=== PATIENT | female | born 1960 | race American Indian/Alaskan Native ===

== ENCOUNTER 2016-09-25 08:17 | Inpatient (IN) | payer MEDICARE ==
[~2016-09-25 08:17] MED LIST: KEPPRA 1,000 MG/NS 0.75% 100ML 1,000 MG/100 ML BAG IV ONE
[2016-09-25] MEDS ORDERED: QUELICIN IV ONE (08:19)
[2016-09-25] MEDS ORDERED: AMIDATE IV ONE (08:19)
[2016-09-25] MEDS ORDERED: KEPPRA 1,000 MG/NS 0.75% 100ML 1,000 MG/100 ML BAG IV ONE (08:20)
[2016-09-25] MEDS ORDERED: VASELINE LIP THERAPY TP PRN (08:24)
[2016-09-25] MEDS ORDERED: ARTIFICIAL TEARS OPHTH OINT OU PRN (08:24)
--- NOTE | 2016-09-25 08:46 | Emergency Department Report ---
ED Altered Mental Status HPI - General Chief Complaint: Altered Mental Status Stated Complaint: UNRESPONSIVE Time Seen by Provider: 09/25/16 08:23 Source: EMS Mode of arrival: Stretcher Limitations: Altered Mental Status - History of Present Illness Initial Comments: 56-year-old female presents to the emergency department via EMS after being found unresponsive. Per report, the family found the patient lying on the floor this morning approximate 7:15 AM. Patient was unresponsive and appeared to be having seizure activity. EMS reports upon their arrival, the patient was noted to have tonic-clonic activity to her right upper and right lower extremities. EMS reports that initial room air saturation was 75%. Patient had a systolic blood pressure greater than 200 mmHg. Patient was placed on a nonrebreather with increase in oxygen saturation to 95%. Patient was also administered 2 mg of Ativan by EMS. EMS reports that after the Ativan, the shaking did decrease. Further history is unable to be obtained from the patient due to her clinical condition. MD Complaint: altered mental status -: unknown Severity: severe Consistency of Symptoms: constant Context: unknown Treatments Prior to Arrival: IV fluid, oxygen, other pre-hosp med (Ativan) - Related Data Home Medications Medication Instructions Recorded Confirmed Last Taken AtorvaSTATin [Lipitor] 20 mg PO QHS 09/25/16 09/25/16 Unknown Benztropine [Cogentin] 1 mg PO BID 09/25/16 09/25/16 Unknown Gabapentin [Gralise] 600 mg PO Q8H 09/25/16 09/25/16 Unknown Pantoprazole Sodium 40 mg PO DAILY 09/25/16 09/25/16 Unknown metFORMIN [Glucophage] 500 mg PO BID 09/25/16 09/25/16 Unknown Allergies Allergy/AdvReac Type Severity Reaction Status Date / Time latex Allergy Rash Verified 06/17/14 10:38 Penicillins Allergy Rash Verified 06/17/14 10:38 Sulfa (Sulfonamide Allergy Rash Verified 06/17/14 10:38 Antibiotics) ED Review of Systems ROS: Stated complaint: UNRESPONSIVE Other details as noted in HPI Comment: Unobtainable due to pts medical conditions ED Past Medical Hx - Past Medical History Previous Medical History?: Yes Hx Hypertension: Yes Hx CVA: Yes (x3) Hx Heart Attack/AMI: No Hx Congestive Heart Failure: No Hx Diabetes: Yes Hx Deep Vein Thrombosis: No Hx Pulmonary Embolism: No Hx GERD: Yes Hx Liver Disease: No Hx Sickle Cell Disease: No Hx Arthritis: Yes Hx Seizures: No Hx Kidney Stones: No Hx Asthma: No Hx COPD: No Hx Dementia: No Hx HIV: No - Surgical History Hx Coronary Stent: No Hx Open Heart Surgery: No Hx Pacemaker: No Hx Internal Defibrillator: No Hx Cholecystectomy: Yes Hx Appendectomy: No Hx Breast Surgery: No Additional Surgical History: spinal surgery, carpal tunnel surgery, ankle fx repair, hysterectomy - Social History Smoking Status: Unknown if ever smoked - Medications Home Medications: Home Medications Medication Instructions Recorded Confirmed Last Taken Type AtorvaSTATin [Lipitor] 20 mg PO QHS 09/25/16 09/25/16 Unknown History Benztropine [Cogentin] 1 mg PO BID 09/25/16 09/25/16 Unknown History Gabapentin [Gralise] 600 mg PO Q8H 09/25/16 09/25/16 Unknown History Pantoprazole Sodium 40 mg PO DAILY 09/25/16 09/25/16 Unknown History metFORMIN [Glucophage] 500 mg PO BID 09/25/16 09/25/16 Unknown History ED Physical Exam - General Limitations: Altered Mental Status General appearance: obtunded - Head Head exam: Present: atraumatic, normocephalic - Eye Eye exam: Present: PERRL, nystagmus (horizontal, right beating), other (gaze deviated to right) - ENT ENT exam: Present: normal exam, normal orophraynx, mucous membranes moist - Neck Neck exam: Present: normal inspection, full ROM. Absent: tenderness - Respiratory Respiratory exam: Present: normal lung sounds bilaterally. Absent: respiratory distress - Cardiovascular Cardiovascular Exam: Present: normal rhythm, tachycardia, normal heart sounds - GI/Abdominal GI/Abdominal exam: Present: soft, normal bowel sounds. Absent: distended, tenderness - Extremities Exam Extremities exam: Present: normal inspection, full ROM. Absent: tenderness - Back Exam Back exam: Present: normal inspection, full ROM. Absent: tenderness - Neurological Exam Neurological exam: Present: other (active right sided seizure noted. GCS 3 (E1 V1 M1)) - Skin Skin exam: Present: warm, dry, intact ED Course Vital Signs 09/25/16 09/25/16 09/25/16 08:20 08:38 08:49 Temperature 98.2 F Pulse Rate 133 H 96 H 104 H Respiratory 10 L 12 12 Rate Blood Pressure 195/118 Blood Pressure 95/68 155/88 [Left] O2 Sat by Pulse 100 94 93 Oximetry - Reevaluation(s) Reevaluation #1: 09/25/16 08:49 Upon arrival, seizure activity was again noted. Patient was initially 5 mg of IV Versed and subsequently intubated using etomidate and succinylcholine. See associated procedure note. Obtaining labs and head CT. Administering IV Keppra. - Intubation Time Out Performed: Yes Sedative: Etomidate Mg Given: 20 Paralytic: Succinylcholine Mg Given: 100 Laryngoscope: Noy Size: 3 ET Tube Size: 7.5 Tube Secured Depth (cm): 24 Tube Secured Location: lips Tube Placement Confirmation: visualized tube passing t, equal breath sounds bilat, no breath sounds over epi, confirmation by capnometr Patient Tolerated Procedure: well Intubation Complications: none - Lab Data Result diagrams: 09/25/16 08:35 09/25/16 08:35 Lab Results 09/25/16 09/25/16 09/25/16 Range/Units 08:35 08:35 08:35 WBC 6.1 (4.5-11.0) K/mm3 RBC 3.91 (3.65-5.03) M/mm3 Hgb 10.5 (10.1-14.3) gm/dl Hct 33.3 (30.3-42.9) % MCV 85 (79-97) fl MCH 27 L (28-32) pg MCHC 32 (30-34) % RDW 20.2 H (13.2-15.2) % Plt Count 340 (140-440) K/mm3 Lymph % (Auto) 19.9 (13.4-35.0) % [place] % (Auto) 7.1 (0.0-7.3) % Eos % (Auto) 0.3 (0.0-4.3) % Baso % (Auto) 1.3 (0.0-1.8) % Lymph # 1.2 (1.2-5.4) K/mm3 [place] # 0.4 (0.0-0.8) K/mm3 Eos # 0.0 (0.0-0.4) K/mm3 Baso # 0.1 (0.0-0.1) K/mm3 Seg Neutrophils % 71.4 H (40.0-70.0) % Seg Neutrophils # 4.4 (1.8-7.7) K/mm3 PT 13.2 (12.2-14.9) Sec. INR 1.01 (0.87-1.13) APTT 25.8 (24.2-36.6) Sec. POC ABG pH (7.35-7.45) POC ABG pCO2 (35-45) POC ABG pO2 (80-105) POC ABG HCO3 POC ABG Total CO2 POC ABG O2 Sat POC ABG Base Excess FiO2 % Sodium 140 (137-145) mmol/L Potassium 4.4 (3.6-5.0) mmol/L Chloride 99.9 (98-107) mmol/L Carbon Dioxide 24 (22-30) mmol/L Anion Gap 21 mmol/L BUN 14 (7-17) mg/dL Creatinine 1.6 H (0.7-1.2) mg/dL Estimated GFR 40 ml/min BUN/Creatinine Ratio 8.75 % Glucose 352 H (65-100) mg/dL Calcium 9.1 (8.4-10.2) mg/dL Troponin T 0.024 (0.00-0.029) ng/mL 09/25/16 Range/Units 09:12 WBC (4.5-11.0) K/mm3 RBC (3.65-5.03) M/mm3 Hgb (10.1-14.3) gm/dl Hct (30.3-42.9) % MCV (79-97) fl MCH (28-32) pg MCHC (30-34) % RDW (13.2-15.2) % Plt Count (140-440) K/mm3 Lymph % (Auto) (13.4-35.0) % [place] % (Auto) (0.0-7.3) % Eos % (Auto) (0.0-4.3) % Baso % (Auto) (0.0-1.8) % Lymph # (1.2-5.4) K/mm3 [place] # (0.0-0.8) K/mm3 Eos # (0.0-0.4) K/mm3 Baso # (0.0-0.1) K/mm3 Seg Neutrophils % (40.0-70.0) % Seg Neutrophils # (1.8-7.7) K/mm3 PT (12.2-14.9) Sec. INR (0.87-1.13) APTT (24.2-36.6) Sec. POC ABG pH 7.596 H (7.35-7.45) POC ABG pCO2 26.5 L (35-45) POC ABG pO2 65 L (80-105) POC ABG HCO3 25.8 POC ABG Total CO2 27 POC ABG O2 Sat 96 POC ABG Base Excess 4 FiO2 100 % Sodium (137-145) mmol/L Potassium (3.6-5.0) mmol/L Chloride (98-107) mmol/L Carbon Dioxide (22-30) mmol/L Anion Gap mmol/L BUN (7-17) mg/dL Creatinine (0.7-1.2) mg/dL Estimated GFR ml/min BUN/Creatinine Ratio % Glucose (65-100) mg/dL Calcium (8.4-10.2) mg/dL Troponin T (0.00-0.029) ng/mL - EKG Data -: EKG Interpreted by Al EKG shows normal: sinus rhythm, axis, intervals, QRS complexes Rate: tachycardia When compared to previous EKG there are: previous EKG unavailable Interpretation: nonspecific ST-T wave sol - Radiology Data Radiology results: report reviewed, image reviewed CT of the head was discussed with the radiologist. There is no acute hemorrhage noted. Ischemic changes consistent with previous left MCA stroke were noted. No other acute findings are noted. - Medical Decision Making Lab and imaging results reviewed and discussed with the patient's family. Patient has had no further seizure activity in the emergency department. Her blood pressure has improved. Patient is to be admitted by the hospitalist, Dr. Orozco. - Differential Diagnosis ICH, status epilepticus, stroke Critical Care Time: Yes Critical care time in (mins) excluding proc time.: 30 Critical care attestation.: If time is entered above; I have spent that time in minutes in the direct care of this critically ill patient, excluding procedure time. Critical Care Time: The high probability of a clinically significant, sudden or life threatening deterioration of the neurologic system(s) required my full and direct attention , intervention and personal management. The aggregate critical care time was 30 minutes. This time is in addition to time spent performing reported procedures but includes the following: [x] Data Review and interpretation [x] Patient assessment and monitoring of vital signs [x] Documentation [x] Medication orders and management ED Disposition Clinical Impression: Status epilepticus Disposition: OP ADMITTED IP TO THIS HOSP Is pt being admited?: Yes Condition: Stable Time of Disposition: 09:24
--- NOTE | 2016-09-25 08:57 | Cat Scan Report ---
CT HEAD WITHOUT CONTRAST INDICATION: Neuro deficits <6 hours or symptoms present upon awakening. Possible stroke. 98N. COMPARISON: 03/25/2016. FINDINGS: Noncontrast head CT demonstrates expected interval evolution with greater left frontotemporoparietal hypodense encephalomalacia measuring 3.8 x 3 cm as on axial image 30, series 2. Slightly greater mild ex-vacuo dilatation of the left lateral ventricle with few other chronic left coronal radiata ischemic changes also again noted, including approximately 8 mm left subinsular cortex lacunar infarct on axial image 20. Slight patient head tilt. Though difficult to reliably detect in this setting, no definite acute infarct clearly identified. No hemorrhage, mass effect, midline shift or abnormal extra axial fluid collections. Normal posterior fossa with preserved basilar cisterns. Bilateral cataract surgery new in the interval. Clear imaged paranasal sinuses and mastoid air cells. Intact calvarium and scalp. Atherosclerotic internal carotid artery calcifications. Few radiopaque dental filling material and missing teeth. CONCLUSION: 1. No definite acute intracranial CT abnormality with expected interval evolution of left MCA infarct since March 2016, as described above. 2. Few other incidental findings, including bilateral cataract surgery. If focal neurologic deficits or strong clinical suspicion for an acute infarction exists, additional assessment as with MRI may be considered, as appropriate. I phoned above results to Dr. Solis in the ER, 8:40 AM, 09/25/2016. Thank you for the opportunity to participate in this patient's care.
[2016-09-25] MEDS ORDERED: VERSED IV NR (09:00)
[2016-09-25] MEDS ORDERED: NACL 0.9% 500 ML IV SCH (09:00)
[2016-09-25] MEDS ORDERED: fentaNYL DRIP Premix 2,000 MCG/100 ML BAG IV SCH (09:00)
[2016-09-25 09:04] LABS: Basophils % (Auto) 1.3 % (0.0-1.8); Eosinophils % (Auto) 0.3 % (0.0-4.3); Hematocrit 33.3 % (30.3-42.9); Hemoglobin 10.5 gm/dl (10.1-14.3); Mean Corpuscular HGB Conc 32 % (30-34); Mean Corpuscular Hemoglobin 27 pg (28-32); Mean Corpuscular Volume 85 fl (79-97); Platelet Count 340 K/mm3 (140-440); Red Blood Count 3.91 M/mm3 (3.65-5.03); Red Cell Distribution Width 20.2 % (13.2-15.2); White Blood Count 6.1 K/mm3 (4.5-11.0)
[2016-09-25 09:11] LABS: BUN/Creatinine Ratio 8.75; Calcium 9.1 mg/dL (8.4-10.2); Chloride 99.9 mmol/L (98-107); Potassium 4.4 mmol/L (3.6-5.0)
[2016-09-25 09:13] LABS: INR 1.01 (0.87-1.13)
[2016-09-25 09:14] LABS: Partial Thromboplastin Time 25.8 Sec. (24.2-36.6)
--- NOTE | 2016-09-25 09:15 | Admit Criteria Form ---
Admission Criteria Documentation: RESPIRATORY FAILURE GRG Clinical Indications for Admission to Inpatient Care (Place 'X' for any and all applicable criteria): Hospital admission is needed for appropriate care of the patient because of acute respiratory failure or insufficiency as indicated by ANY ONE of the following(1)(2)(3)(4)(5)(6)(7)(8): [X ]I. Mechanical ventilation needed (acute invasive or noninvasive) [ ]II. Severe ventilation deficit as indicated by ANY ONE of the following (9) [ ]a) Respiratory acidosis (pH less than 7.32 and partial pressure of carbon dioxide greater than 40 mm Hg (5.3 kPa)) [ ]b) Partial pressure of carbon dioxide greater than 44 mm Hg (5.9 kPa ) (new) [ ]c) Airflow measurements less than 25% of predicted (eg, peak expiratory flow rate less than 100 L/minute) [ ]d) Forced vital capacity less than 15 mL/kg of ideal body weight, or 50% decrease in vital capacity from baseline [ ]III. Noncardiac pulmonary edema not resolving with rapid emergency treatment (8) [ ]IV. Severe respiratory distress as indicated by ANY ONE of the following: [ ]a) Severe tachypnea (respiratory rate greater than 30, greater than 45 for 6-month-old, greater than 60 for ) [ ]b) Severe hypoxemia (partial pressure of oxygen less than 50 mm Hg ( 6.7 kPa) on greater than 50% oxygen or partial pressure of oxygen to FIO2 ratio less than 200) [ ]c) Mental status deterioration from respiratory disease [ ]V. Airway obstruction or inadequate protection [A](10)(11) The original [employer] content created by [employer] has been revised. The portions of the content which have been revised are identified through the use of italic text or in bold, and [employer] has neither reviewed nor approved the modified material. All other unmodified content is copyright [employer] Please see references footnoted in the original [employer] edition 2016 Admission Criteria Met: Yes
[2016-09-25] MEDS: DIPRIVAN 10 MG/ML 1,000 MG/100 ML BOTTLE IV SCH ×2 (09:16→23:52)
[2016-09-25 09:21] LABS: ISTAT Base Excess 4; ISTAT HCO3 25.8; ISTAT PCO2 26.5 (35-45); ISTAT PH 7.596 (7.35-7.45); ISTAT PO2 65 (80-105); ISTAT SO2 96; ISTAT TCO2 27
--- NOTE | 2016-09-25 09:54 | XRay Report ---
AP CHEST: HISTORY: Endotracheal tube placement. The endotracheal tube terminates at the orifice of the right mainstem bronchus. Retraction by 3-4 cm is recommended. AP view of the chest demonstrates a normal mediastinal and cardiac contour with clear lungs and normal bony and soft tissue structures. IMPRESSION: The endotracheal tube terminates at the jake/orifice of the right mainstem bronchus. Retraction by 3-4 cm is recommended.
--- NOTE | 2016-09-25 10:31 | History and Physical Report ---
History of Present Illness Date of examination: 09/25/16 Date of admission: 09/25/16 Chief complaint: sz History of present illness: 56-year-old female with significant past medical history of multiple CVAs with residual right hemiparesis, left ICA stenosis, hypertension, diabetes mellitus type 2, hyperlipidemia, hypertension, peripheral neuropathy and history of gastric ulcers and GI bleed who presents to the emergency department via EMS after being found unresponsive. Per ER/EMS report, the family found the patient lying on the floor this morning at approximately 7:15 AM. Patient was noted to be unresponsive and appeared to be having generalized tonic-clonic seizure activity. EMS reports upon their arrival, the patient was noted to have tonic-clonic activity to her right upper and right lower extremities. Her initial room air saturation was 75%. Patient had a systolic blood pressure greater than 200 mmHg. Patient was placed on a nonrebreather with increase in oxygen saturation to 95%. Patient was also administered 2 mg of Ativan by EMS. EMS reports that after the Ativan, the seizure activity did decrease. Patient is currently intubated on mechanical ventilation and sedated. The son is at the bedside but is unable to give any other history. Past History Past Medical History: diabetes, hypertension, hyperlipidemia, other (GI bleed, right hemiparesis, history of gastric ulcers with positive H. pylori) Past Surgical History: Other (unable to obtain due to ventilator) Social history: other (unable to obtain due to ventilator) Family history: other (unable to obtain due to ventilator) Medications and Allergies Allergies Allergy/AdvReac Type Severity Reaction Status Date / Time latex Allergy Rash Verified 06/17/14 10:38 Penicillins Allergy Rash Verified 06/17/14 10:38 Sulfa (Sulfonamide Allergy Rash Verified 06/17/14 10:38 Antibiotics) Home Medications Medication Instructions Recorded Confirmed Last Taken Type AtorvaSTATin [Lipitor] 20 mg PO QHS 09/25/16 09/25/16 Unknown History Benztropine [Cogentin] 1 mg PO BID 09/25/16 09/25/16 Unknown History Gabapentin [Gralise] 600 mg PO Q8H 09/25/16 09/25/16 Unknown History Pantoprazole Sodium 40 mg PO DAILY 09/25/16 09/25/16 Unknown History metFORMIN [Glucophage] 500 mg PO BID 09/25/16 09/25/16 Unknown History Active Meds: Active Medications Hydrophilic Ointment (Vaseline Lip Therapy) 1 applic TP Q2HR PRN PRN Reason: Dry Lips Fentanyl Citrate (Fentanyl Drip Premix) 2,000 mcg in 100 mls @ 5.103 mls/hr IV TITR LINDY; 1 MCG/KG/HR PRN Reason: Protocol Propofol (Diprivan 10 Mg/Ml) 1,000 mg in 100 mls @ 3.062 mls/hr IV TITR LINDY; 5 MCG/KG/MIN PRN Reason: Protocol Last Admin: 09/25/16 09:16 Dose: 5 mcg/kg/min, 3.062 mls/hr Midazolam HCl (Versed) 5 mg IV ONCE NR Stop: 09/25/16 21:00 Multi-Ingred Cream/Lotion/Oil/Oint (Artificial Tears Ophth Oint) 1 applic OU Q4HR PRN PRN Reason: Dry Eye(s) Sodium Chloride (Nacl 0.9% 500 Ml) 1 ml IV DIRECT LINDY Review of Systems ROS unobtainable: due to endotracheal tube, due to mental status Exam - Constitutional Vitals: Temp Pulse Resp BP Pulse Ox 98.2 F 108 H 15 121/78 92 09/25/16 08:49 09/25/16 09:40 09/25/16 09:40 09/25/16 09:40 09/25/16 09:40 General appearance: Present: no acute distress, well-nourished, other (orally intubated) - EENT Eyes: Present: PERRL ENT: hearing intact, clear oral mucosa - Neck Neck: Present: supple, normal ROM - Respiratory Respiratory effort: normal Respiratory: bilateral: diminished, rhonchi - Cardiovascular Heart Sounds: Present: S1 & S2. Absent: rub, click - Extremities Extremities: pulses symmetrical, No edema Peripheral Pulses: within normal limits - Abdominal General gastrointestinal: Present: soft, non-tender, non-distended, normal bowel sounds Female genitourinary: Present: normal - Integumentary Integumentary: Present: clear, warm, dry - Musculoskeletal Musculoskeletal: gait normal, strength equal bilaterally - Psychiatric Psychiatric: appropriate mood/affect, intact judgment & insight - Neurologic Neurologic: CNII-XII intact, moves all extremities Results - Labs CBC & Chem 7: 09/25/16 08:35 09/25/16 08:35 Labs: Laboratory Last Values WBC 6.1 K/mm3 (4.5-11.0) 09/25/16 08:35 RBC 3.91 M/mm3 (3.65-5.03) 09/25/16 08:35 Hgb 10.5 gm/dl (10.1-14.3) 09/25/16 08:35 Hct 33.3 % (30.3-42.9) 09/25/16 08:35 MCV 85 fl (79-97) 09/25/16 08:35 MCH 27 pg (28-32) L 09/25/16 08:35 MCHC 32 % (30-34) 09/25/16 08:35 RDW 20.2 % (13.2-15.2) H 09/25/16 08:35 Plt Count 340 K/mm3 (140-440) 09/25/16 08:35 Lymph % (Auto) 19.9 % (13.4-35.0) 09/25/16 08:35 [place] % (Auto) 7.1 % (0.0-7.3) 09/25/16 08:35 Eos % (Auto) 0.3 % (0.0-4.3) 09/25/16 08:35 Baso % (Auto) 1.3 % (0.0-1.8) 09/25/16 08:35 Lymph # 1.2 K/mm3 (1.2-5.4) 09/25/16 08:35 [place] # 0.4 K/mm3 (0.0-0.8) 09/25/16 08:35 Eos # 0.0 K/mm3 (0.0-0.4) 09/25/16 08:35 Baso # 0.1 K/mm3 (0.0-0.1) 09/25/16 08:35 Seg Neutrophils % 71.4 % (40.0-70.0) H 09/25/16 08:35 Seg Neutrophils # 4.4 K/mm3 (1.8-7.7) 09/25/16 08:35 PT 13.2 Sec. (12.2-14.9) 09/25/16 08:35 INR 1.01 (0.87-1.13) 09/25/16 08:35 APTT 25.8 Sec. (24.2-36.6) 09/25/16 08:35 Thrombin Time 16.9 Sec. (15.1-19.6) 09/25/16 08:35 POC ABG pH 7.596 (7.35-7.45) H 09/25/16 09:12 POC ABG pCO2 26.5 (35-45) L 09/25/16 09:12 POC ABG pO2 65 (80-105) L 09/25/16 09:12 POC ABG HCO3 25.8 09/25/16 09:12 POC ABG Total CO2 27 09/25/16 09:12 POC ABG O2 Sat 96 09/25/16 09:12 POC ABG Base Excess 4 09/25/16 09:12 FiO2 100 % 09/25/16 09:12 Sodium 140 mmol/L (137-145) 09/25/16 08:35 Potassium 4.4 mmol/L (3.6-5.0) 09/25/16 08:35 Chloride 99.9 mmol/L (98-107) 09/25/16 08:35 Carbon Dioxide 24 mmol/L (22-30) 09/25/16 08:35 Anion Gap 21 mmol/L 09/25/16 08:35 BUN 14 mg/dL (7-17) 09/25/16 08:35 Creatinine 1.6 mg/dL (0.7-1.2) H 09/25/16 08:35 Estimated GFR 40 ml/min 09/25/16 08:35 BUN/Creatinine Ratio 8.75 % 09/25/16 08:35 Glucose 352 mg/dL (65-100) H 09/25/16 08:35 Calcium 9.1 mg/dL (8.4-10.2) 09/25/16 08:35 Troponin T 0.024 ng/mL (0.00-0.029) 09/25/16 08:35 Assessment and Plan Assessment and plan: Acute hypoxic respiratory failure. Patient will be maintained on mechanical ventilation. Pulmonary consultation pending. New-onset seizure. Neurology consultation. We will obtain MRI/MRA once patient is stable. Check EEG. Continue Keppra and Ativan for breakthrough seizures. History of multiple CVAs. The new seizure may be sequelae for CVA. Await MRI/ MRA. Patient will be placed on stroke pathway for now. History of gastric ulcers with positive H. pylori. Protonix daily. Acute renal failure. Etiology likely secondary to acute kidney injury from vasomotor nephropathy. Patient's last creatinine of March 2016 was 1.0. IV fluid hydration. Consider renal ultrasound. Hypertension. Resume antihypertensive medications. Diabetes mellitus type 2, uncontrolled. Accu-Cheks and sliding scale insulin. Hyperlipidemia. Continue statins.
[2016-09-25] MEDS ORDERED: PHENERGAN PR PRN (10:42)
[2016-09-25] MEDS ORDERED: SODIUM CHLORIDE FLUSH SYRINGE 10 ML IV PRN (10:42)
[2016-09-25] MEDS ORDERED: DULCOLAX PR PRN (10:42)
[2016-09-25] MEDS ORDERED: ZOFRAN IV PRN (10:42)
[2016-09-25] MEDS ORDERED: REGLAN PO PRN (10:42)
[2016-09-25] MEDS ORDERED: MILK OF MAGNESIA PO PRN (10:42)
[2016-09-25] MEDS ORDERED: NON-FORMULARY (Gabapentin [Gralise] 600 MG) PO SCH (10:45)
[2016-09-25 12:18] LABS: Bacteria,Urine 4+ /HPF (Negative); Bilirubin,Urine NEG (Negative); Blood,Urine SM (Negative); Ketones,Urine TR mg/dL (Negative); Leukocyte Esterase,Urine NEG (Negative); Mucus,Urine 3+ /HPF; Nitrite,Urine POS (Negative); Urobilinogen,Urine < 2.0 mg/dL (<2.0)
[2016-09-25 12:22] LABS: RBC,Urine < 1.0 /HPF (0.0-6.0)
[2016-09-25] MEDS: NEURONTIN PO SCH ×2 (13:52→22:30)
[2016-09-25] MEDS ORDERED: NEURONTIN PO SCH (14:00)
--- NOTE | 2016-09-25 14:51 | Consultation ---
History of Present Illness Consult date: 09/25/16 Requesting physician: DEREJE ROWE Reason for Consult: seizure Chief complaint: AMS limits direct hx. History of present illness: 56 YO F Hx L MCA stroke Jan 2016 w/ resultant dysphasia and R hemiparesis ambulates w/ cane/walker, seizure disorder on Jose 600mg TID and VPA 250mg TID but not complaint and reported left ICA stenosis, HTN, DM2, HLD, GIB p/w witnessed GTC on 09/25 7:30 AM. Sx began w/ LOC and convulsions on R hemibody then all over her body. EMS reports upon their arrival, the patient was noted to have tonic-clonic activity to her right upper and right lower extremities. Patient had a systolic blood pressure greater than 200 mmHg. Patient was placed on a nonrebreather with increase in oxygen saturation to 95%. Patient was also administered 2 mg of Ativan the seizure activity did decrease. Patient is currently intubated on mechanical ventilation and sedated. There were no clear aggravating, relieving or temporal factors. severity such to cause LOC. Past History Past Medical History: diabetes, hypertension, hyperlipidemia, seizures, stroke, other (GI bleed, right hemiparesis, history of gastric ulcers with positive H. pylori) Past Surgical History: Other (unable to obtain due to ventilator) Social history: lives with family, smoking, alcohol abuse, other (unable to obtain due to ventilator) Family history: other (unable to obtain due to ventilator) Medications and Allergies Allergies Allergy/AdvReac Type Severity Reaction Status Date / Time latex Allergy Rash Verified 06/17/14 10:38 Penicillins Allergy Rash Verified 06/17/14 10:38 Sulfa (Sulfonamide Allergy Rash Verified 06/17/14 10:38 Antibiotics) Home Medications Medication Instructions Recorded Confirmed Last Taken Type AtorvaSTATin [Lipitor] 20 mg PO QHS 09/25/16 09/25/16 Unknown History Benztropine [Cogentin] 1 mg PO BID 09/25/16 09/25/16 Unknown History Gabapentin [Gralise] 600 mg PO Q8H 09/25/16 09/25/16 Unknown History Haloperidol [Haldol] 10 mg PO BID 09/25/16 09/25/16 Unknown History Pantoprazole Sodium 40 mg PO DAILY 09/25/16 09/25/16 Unknown History metFORMIN [Glucophage] 500 mg PO BID 09/25/16 09/25/16 Unknown History Active Meds: Active Medications Acetaminophen (Tylenol) 650 mg PO Q4H PRN PRN Reason: Pain, Mild (1-3) Atorvastatin Calcium (Lipitor) 20 mg PO QHS [facility] Benztropine Mesylate (Cogentin) 1 mg PO BID [facility] Bisacodyl (Dulcolax) 10 mg VA QDAY PRN PRN Reason: Constipation Enoxaparin Sodium (Lovenox) 40 mg SUB-Q QDAY@1000 LINDY Gabapentin (Neurontin) 600 mg PO Q8HR [facility] Last Admin: 09/25/16 13:52 Dose: 600 mg Hydrophilic Ointment (Vaseline Lip Therapy) 1 applic TP Q2HR PRN PRN Reason: Dry Lips Fentanyl Citrate (Fentanyl Drip Premix) 2,000 mcg in 100 mls @ 5.103 mls/hr IV TITR LINDY; 1 MCG/KG/HR PRN Reason: Protocol Propofol (Diprivan 10 Mg/Ml) 1,000 mg in 100 mls @ 3.062 mls/hr IV TITR LINDY; 5 MCG/KG/MIN PRN Reason: Protocol Last Titration: 09/25/16 10:59 Dose: 10 mcg/kg/min, 6.123 mls/hr Valproate Sodium 250 mg/ (Sodium Chloride) 102.5 mls @ 100 mls/hr IV Q8HR [facility] Magnesium Hydroxide (Milk Of Magnesia) 30 ml PO Q4H PRN PRN Reason: Constipation Metoclopramide HCl (Reglan) 10 mg PO Q6H PRN PRN Reason: Nausea And Vomiting Midazolam HCl (Versed) 5 mg IV ONCE NR Stop: 09/25/16 21:00 Multi-Ingred Cream/Lotion/Oil/Oint (Artificial Tears Ophth Oint) 1 applic OU Q4HR PRN PRN Reason: Dry Eye(s) Ondansetron HCl (Zofran) 4 mg IV Q8H PRN PRN Reason: N/V unrelieved by Reglan Promethazine HCl (Phenergan) 25 mg VA Q6H PRN PRN Reason: Nausea And Vomiting Simvastatin (Zocor) 20 mg PO QHS [facility] Sodium Chloride (Nacl 0.9% 500 Ml) 1 ml IV DIRECT [facility] Sodium Chloride (Sodium Chloride Flush Syringe 10 Ml) 10 ml IV PRN PRN PRN Reason: LINE FLUSH Review of Systems ROS unobtainable: due to endotracheal tube, due to mental status Physical Examination - Vital Signs Vital Signs: Vital Signs Pulse Resp BP Pulse Ox 133 H 10 L 195/118 100 09/25/16 08:20 09/25/16 08:20 09/25/16 08:20 09/25/16 08:20 - Constitutional General appearance: uncomfortable, acutely ill, chronically ill, older than stated age - EENT EENT: Present: ATNC, PERRL, mucous membranes moist, hearing intact - Respiratory Respiratory: Present: chest non-tender, no respiratory distress, decreased breath sounds - Cardiovascular Cardiovascular: Present: regular rate Extremities: Present: no peripheral edema bilatateraly, no clubbing, cyanosis, no inflammation, no ischemia or petechiae - Gastrointestinal Gastrointestinal: Present: normoactive bowel sounds, soft, non-distended - Integumentary Integumentary: Present: normal - Neurologic Cranial nerve examination: PERRL, EOMI, tongue midline, intact, intact gag reflex, Intact Vestibulo-ocular r, intact corneal reflex, facial droop (on R) Speech examination: other (no speech while intubated) Sensorimotor examination: flaccid paralysis (on R), hemiparesis (on R) Motor examination - right side: 2/5: biceps, triceps, wrist flexion, wrist extension, player development manager, hip flexors, knee extensors, dorsiflexion, toe extension (EHL) , plantarflexion Motor examination - left side: 4/5: biceps, triceps, wrist flexion, wrist extension, player development manager, hip flexors, knee extensors, dorsiflexion, toe extension (EHL) , plantarflexion Detailed sensory examination: intact, pain (withdraws on L and grimaces on R) Reflex and gait examination: Babinski's sign (on R) Reflexes: 0: ankle, 3+: bicep, knee, tricep - Musculoskeletal Musculoskeletal: Present: no fluid collection, no pain, normal range of motion - Psychiatric Psychiatric: Present: mood/affect appropriate Results - Laboratory Findings CBC and BMP: 09/25/16 08:35 09/25/16 08:35 Assessment and Plan 56 YO F Hx L MCA stroke Jan 2016 w/ resultant dysphasia and R hemiparesis ambulates w/ cane/walker, seizure disorder on Jose 600mg TID and VPA 250mg TID but not complaint and reported left ICA stenosis, HTN, DM2, HLD, GIB p/w witnessed GTC on 09/25 7:30 AM. On exam pt opens eyes to stim, doesnt follow commands but withdraws to pain on L. She was on propofol gtt when examined. Sz likely provoked from AED noncompliance. CTH nonacute. Plan and Recommendation: 1. Telemetry bed w/ Q4 hour neuro checks & Sz precautions 2. Labs: Serum/Urine Tox, UA/UCx, Electrolytes especially Na, Ca, Mg, and Glucose, TSH/Vit B12/Ammonia and correct as necessary 3. Cont Infectious work up/medical management for UTI, PNA, cellulitis, bacteremia, etc. 4. Avoid hyponatremia, hypo/hyper-calcemia, hypo/hyperglycemia, acidosis, hypoxia/hypoxemia, hypercarbia/hypercapnia 5. Avoid institution of any psychoactive medications (e.g. antihistamines, anticholinergics, BZD, hypnotics, opiates) as able unless low doses of low potency antipsychotic needed for behavioral issues complicating medical care 6. AED therapy: Resume home VPA 250mg TID and Jose 600mg TID. Check VPA level 7. Avoid meds that can lower sz threshold e.g. Tramadol, fluroquinolones, carbapenems 8. If suspicion for EtOH dependence would supplement Thiamine, Folate and B12 9. Pt's family advised of [place] driving regulations: report date of presumed Seizure/unexplained loss of consciousness/awareness spell to [facility], refrain from operating a motor vehicle for 6 months after this date, and avoid unsupervised activity particularly around water or heights
[2016-09-25] MEDS ORDERED: APRESOLINE IV PRN (15:26)
[2016-09-25] MEDS: DEPACON IV SCH ×2 (17:00→22:30)
[2016-09-25] MEDS: NACL 0.9% IV SCH ×2 (17:00→22:30)
--- NOTE | 2016-09-25 17:53 | Consultation ---
History of Present Illness Consult date: 09/25/16 Requesting physician: REINIER SESAY Reason for consult: other (Acute Hypoxemic Respiratory Failure; Seizure Disorder ) History of present illness: PULMONARY/CCM CONSULT NOTE (Full dictation # [id number]) Please see dictated notes for full details Past History Past Medical History: diabetes, hypertension, hyperlipidemia, seizures, stroke, other (GI bleed, right hemiparesis, history of gastric ulcers with positive H. pylori) Past Surgical History: Other (unable to obtain due to ventilator) Social history: lives with family, smoking, alcohol abuse, other (unable to obtain due to ventilator) Family history: other (unable to obtain due to ventilator) Medications and Allergies Allergies Allergy/AdvReac Type Severity Reaction Status Date / Time latex Allergy Rash Verified 06/17/14 10:38 Penicillins Allergy Rash Verified 06/17/14 10:38 Sulfa (Sulfonamide Allergy Rash Verified 06/17/14 10:38 Antibiotics) Home Medications Medication Instructions Recorded Confirmed Last Taken Type AtorvaSTATin [Lipitor] 20 mg PO QHS 09/25/16 09/25/16 Unknown History Benztropine [Cogentin] 1 mg PO BID 09/25/16 09/25/16 Unknown History Gabapentin [Gralise] 600 mg PO Q8H 09/25/16 09/25/16 Unknown History Haloperidol [Haldol] 10 mg PO BID 09/25/16 09/25/16 Unknown History Pantoprazole Sodium 40 mg PO DAILY 09/25/16 09/25/16 Unknown History metFORMIN [Glucophage] 500 mg PO BID 09/25/16 09/25/16 Unknown History Active Meds: Active Medications Acetaminophen (Tylenol) 650 mg PO Q4H PRN PRN Reason: Pain, Mild (1-3) Atorvastatin Calcium (Lipitor) 20 mg PO QHS LINDY Benztropine Mesylate (Cogentin) 1 mg PO BID LINDY Bisacodyl (Dulcolax) 10 mg NC QDAY PRN PRN Reason: Constipation Enoxaparin Sodium (Lovenox) 40 mg SUB-Q QDAY@1000 LINDY Gabapentin (Neurontin) 600 mg PO Q8HR LINDY Last Admin: 09/25/16 13:52 Dose: 600 mg Hydralazine HCl (Apresoline) 10 mg IV Q6HR PRN PRN Reason: B/P GREATER THAN 150 Last Admin: 09/25/16 15:35 Dose: 10 mg Hydrophilic Ointment (Vaseline Lip Therapy) 1 applic TP Q2HR PRN PRN Reason: Dry Lips Fentanyl Citrate (Fentanyl Drip Premix) 2,000 mcg in 100 mls @ 5.103 mls/hr IV TITR LINDY; 1 MCG/KG/HR PRN Reason: Protocol Propofol (Diprivan 10 Mg/Ml) 1,000 mg in 100 mls @ 3.062 mls/hr IV TITR LINDY; 5 MCG/KG/MIN PRN Reason: Protocol Last Titration: 09/25/16 10:59 Dose: 10 mcg/kg/min, 6.123 mls/hr Valproate Sodium 250 mg/ (Sodium Chloride) 102.5 mls @ 100 mls/hr IV Q8HR LINDY Magnesium Hydroxide (Milk Of Magnesia) 30 ml PO Q4H PRN PRN Reason: Constipation Metoclopramide HCl (Reglan) 10 mg PO Q6H PRN PRN Reason: Nausea And Vomiting Midazolam HCl (Versed) 5 mg IV ONCE NR Stop: 09/25/16 21:00 Multi-Ingred Cream/Lotion/Oil/Oint (Artificial Tears Ophth Oint) 1 applic OU Q4HR PRN PRN Reason: Dry Eye(s) Ondansetron HCl (Zofran) 4 mg IV Q8H PRN PRN Reason: N/V unrelieved by Reglan Promethazine HCl (Phenergan) 25 mg [place] Q6H PRN PRN Reason: Nausea And Vomiting Simvastatin (Zocor) 20 mg PO QHS [facility] Sodium Chloride (Nacl 0.9% 500 Ml) 1 ml IV DIRECT LINDY Sodium Chloride (Sodium Chloride Flush Syringe 10 Ml) 10 ml IV PRN PRN PRN Reason: LINE FLUSH Physical Examination Vital signs: Vital Signs Pulse Resp BP Pulse Ox 133 H 10 L 195/118 100 09/25/16 08:20 09/25/16 08:20 09/25/16 08:20 09/25/16 08:20 Results - Laboratory Findings CBC and BMP: 09/25/16 08:35 09/25/16 08:35 ABG POC ABG pH 7.596 (7.35-7.45) H 09/25/16 09:12 POC ABG pCO2 26.5 (35-45) L 09/25/16 09:12 POC ABG pO2 65 (80-105) L 09/25/16 09:12 POC ABG HCO3 25.8 09/25/16 09:12 POC ABG Total CO2 27 09/25/16 09:12 POC ABG O2 Sat 96 09/25/16 09:12 PT/INR, D-dimer PT 13.2 Sec. (12.2-14.9) 09/25/16 08:35 INR 1.01 (0.87-1.13) 09/25/16 08:35 Abnormal lab findings: Abnormal Labs 09/25/16 14:57 Valproic Acid < 2.8 L
[2016-09-25] MEDS ORDERED: D50W (25GM) IV PRN (20:43)
[2016-09-25] MEDS ORDERED: LEVEMIR SUB-Q SCH (22:00)
--- NOTE | 2016-09-25 22:08 | Progress Note ---
Assessment and Plan # Acute hypoxemic respiratory failure. Secondary to status epilepticus. Sedated and on mechanical ventilation. Pulmonary consult obtained to assist him vent management # Statuts epilepticus Pt had first seizure in 2015 and had had multiple seizures since then. On Valprioc acid and Gabatentin. Today's was protracted seizure. Intabated and sedated on arrival to the Ed. Neurology consult obtained. On propofol and AED, prn Ativan # H/o Multiple CVA and right hemiparesis. Has Left ICA stenosis from prior evalution. Will continue with ASA, Statin further evaluation with MRA/MRI # Acute renal Failure. Likely from vasomotor nephropathy. iv hydration. Trend BUN and creatinine # Diabetes mellitus. A1c 11.1%. SSI. ivf with D51/2 NS as pt is still NPO. Accucheck Q 4 hrs with moderate dose SSI # Hypertesnion: Initialy very elevated from seizure activity. Anticipate resolution to baseline. Recommence oral antihypertensives via OJ tube. # Hyperlipdemia: On statins # DVT PPx andGI PPx with Lovenox and protonix Subjective Date of service: 09/25/16 Principal diagnosis: acute hypoxemic respiratory failure, status epilepticus Interval history: Informed by the ER physician as well as family members to see a patient well- known to me who has a history of multiple cerebrovascular accident with residual right hemiparesis, a walker and a cane was found unresponsive with clonic tonic seizure started on the right side and became generalized. EMS was called in and patient was found to be unresponsive with severely elevated blood pressure 9200s. Placed on nonrebreather and brought to the emergency department. Was intubated, sedated and connected to mechanical ventilation. Patient had a seizure in 2005 after her an episode of cerebrovascular accident. Has been on antihyperlipidemic drugs since then. Compliant with a medication prior to onset of his current symptoms that started about 7:30 AM. Objective - Constitutional Vitals: Vital Signs - 12hr 09/25/16 09/25/16 09/25/16 10:50 11:00 11:10 Temperature Pulse Rate 114 H 115 H 118 H Pulse Rate [ From Monitor] Respiratory 13 19 13 Rate Blood Pressure 147/90 152/87 152/87 O2 Sat by Pulse 99 99 Oximetry 09/25/16 09/25/16 09/25/16 11:20 11:30 11:34 Temperature Pulse Rate 115 H 118 H 121 H Pulse Rate [ From Monitor] Respiratory 11 L 14 Rate Blood Pressure 151/94 166/92 166/92 O2 Sat by Pulse 100 99 100 Oximetry 09/25/16 09/25/16 09/25/16 11:40 11:50 12:00 Temperature Pulse Rate 118 H 120 H 125 H Pulse Rate [ From Monitor] Respiratory 12 12 13 Rate Blood Pressure 166/92 151/94 166/96 O2 Sat by Pulse 100 100 99 Oximetry 09/25/16 09/25/16 09/25/16 12:10 12:20 12:30 Temperature Pulse Rate 135 H 129 H 128 H Pulse Rate [ From Monitor] Respiratory 19 12 12 Rate Blood Pressure 166/96 147/82 148/91 O2 Sat by Pulse 97 Oximetry 09/25/16 09/25/16 09/25/16 12:40 12:50 13:00 Temperature Pulse Rate 130 H 128 H 127 H Pulse Rate [ From Monitor] Respiratory 12 13 13 Rate Blood Pressure 148/91 167/91 146/93 O2 Sat by Pulse Oximetry 09/25/16 09/25/16 09/25/16 13:10 13:20 13:30 Temperature Pulse Rate 132 H 136 H 132 H Pulse Rate [ From Monitor] Respiratory 12 13 11 L Rate Blood Pressure 146/93 153/97 145/100 O2 Sat by Pulse Oximetry 09/25/16 09/25/16 09/25/16 13:40 13:50 14:00 Temperature Pulse Rate 131 H 132 H 133 H Pulse Rate [ From Monitor] Respiratory 13 13 12 Rate Blood Pressure 145/100 164/97 139/94 O2 Sat by Pulse Oximetry 09/25/16 09/25/16 09/25/16 14:10 14:20 14:30 Temperature Pulse Rate 140 H 136 H 133 H Pulse Rate [ From Monitor] Respiratory 14 12 12 Rate Blood Pressure 139/94 163/100 164/101 O2 Sat by Pulse 95 Oximetry 09/25/16 09/25/16 09/25/16 14:40 14:50 15:00 Temperature Pulse Rate 133 H 133 H 115 H Pulse Rate [ From Monitor] Respiratory 12 14 14 Rate Blood Pressure 164/101 163/100 168/103 O2 Sat by Pulse 97 Oximetry 09/25/16 09/25/16 09/25/16 15:10 15:20 15:30 Temperature Pulse Rate 137 H 137 H 135 H Pulse Rate [ From Monitor] Respiratory 12 12 12 Rate Blood Pressure 168/103 179/110 161/91 O2 Sat by Pulse 97 Oximetry 09/25/16 09/25/16 09/25/16 15:35 15:40 16:00 Temperature 98.3 F Pulse Rate 133 H 147 H Pulse Rate [ 135 H From Monitor] Respiratory 22 12 Rate Blood Pressure 179/110 161/91 O2 Sat by Pulse 96 55 L Oximetry General appearance: Present: other (intubated and sedated and on mechanical ventilation) - EENT Eyes: PERRL, EOM intact Ears: bilateral: normal - Neck Neck: supple - Respiratory Respiratory effort: normal, other (on mechanical ventilation) Respiratory: bilateral: CTA - Cardiovascular Rhythm: regular Heart Sounds: Present: S1 & S2. Absent: gallop, rub Extremities: pulses intact, No edema, normal color, Full ROM - Gastrointestinal General gastrointestinal: Present: soft, non-tender, non-distended - Integumentary Integumentary: clear, warm, dry - Musculoskeletal Musculoskeletal: 1, strength equal bilaterally - Neurologic Neurologic: moves all extremities - Psychiatric Psychiatric: appropriate mood/affect, intact judgment & insight, memory intact - Labs CBC & Chem 7: 09/25/16 08:35 09/25/16 08:35 Labs: Abnormal lab results 09/25/16 Range/Units 14:57 Valproic Acid < 2.8 L (50-100) ug/mL
[2016-09-25] MEDS: COGENTIN PO SCH (22:32)
[2016-09-25] MEDS: ZOCOR PO SCH (22:32)
[2016-09-25] MEDS: D5/0.45NS 1,000 ML IV SCH (22:36)
[2016-09-25] MEDS: NOVOLOG SUB-Q SCH (23:08)
[2016-09-26 04:40] LABS: Basophils % (Auto) 0.5 % (0.0-1.8); Eosinophils % (Auto) 1.3 % (0.0-4.3); Hematocrit 29.4 % (30.3-42.9); Hemoglobin 8.9 gm/dl (10.1-14.3); Mean Corpuscular HGB Conc 30 % (30-34); Mean Corpuscular Hemoglobin 28 pg (28-32); Platelet Count 270 K/mm3 (140-440); Red Blood Count 3.21 M/mm3 (3.65-5.03); White Blood Count 8.6 K/mm3 (4.5-11.0)
[2016-09-26 04:46] LABS: Mean Corpuscular Volume 87 fl (79-97)
[2016-09-26 04:54] LABS: Albumin/Globulin Ratio 0.8 %; BUN/Creatinine Ratio 8.94; Bilirubin,Total 0.2 mg/dL (0.1-1.2); Calcium 9.1 mg/dL (8.4-10.2); Chloride 100.8 mmol/L (98-107); Magnesium 2.1 mg/dL (1.7-2.3); Phosphorous 2.9 mg/dL (2.5-4.5); Potassium 4.1 mmol/L (3.6-5.0); Total Protein 6.6 g/dL (6.3-8.2)
[2016-09-26] MEDS: NACL 0.9% IV SCH ×3 (05:15→22:23)
[2016-09-26] MEDS: DEPACON IV SCH ×3 (05:15→22:23)
[2016-09-26] MEDS: NEURONTIN PO SCH ×3 (05:16→22:00)
[2016-09-26 06:29] LABS: ISTAT Base Excess 4; ISTAT HCO3 27.8; ISTAT PCO2 38.6 (35-45); ISTAT PH 7.465 (7.35-7.45); ISTAT PO2 168 (80-105); ISTAT SO2 100; ISTAT TCO2 29
[2016-09-26] MEDS: NOVOLOG SUB-Q SCH ×5 (06:49→22:23)
--- NOTE | 2016-09-26 07:40 | XRay Report ---
Single view chest: Compared to 09/25/16. History: Followup ORIF failure. Findings: Heart size at upper limit of normal. Trachea is midline. Stable support system. No consolidation, pneumothorax or pleural effusion. Impression: No acute cardiopulmonary findings.
--- NOTE | 2016-09-26 09:08 | Progress Note ---
Assessment and Plan # Acute hypoxemic respiratory failure. Secondary to status epilepticus. Sedated and on mechanical ventilation. Wean as tolerated. Pulmonary input appreciated. # Statuts epilepticus Pt had first seizure in 2015 and had had multiple seizures since then. On Valprioc acid and Gabatentin. Intabated and sedated on arrival to the Ed. No more seizure since then. Neurology consult obtained. On propofol and AED, prn Ativan # H/o Multiple CVA and right hemiparesis. Possible source of seiozure. Has Left ICA stenosis from prior evalution. Will continue with ASA, Statin. Further evaluation with MRA/MRI when more stable # Acute renal Failure. Likely from vasomotor nephropathy. Possibility of rhabdomyelysis cannot be excluded. iv hydration. Trend BUN and creatinine # Diabetes mellitus. A1c 11.1%. SSI. IVF with D51/2 NS as pt is still NPO. Accucheck Q 4 hrs with moderate dose SSI. Optimize control # Hypertension: Initialy very elevated from seizure activity. Controlled now. Continue oral antihypertensives via OJ tube. # Hyperlipdemia: On statins # DVT PPx andGI PPx with Lovenox and protonix Subjective Date of service: 09/26/16 Principal diagnosis: acute hypoxemic respiratory failure, status epilepticus Interval history: Informed by the ER physician as well as family members to see a patient well- known to me who has a history of multiple cerebrovascular accident with residual right hemiparesis, a walker and a cane was found unresponsive with clonic tonic seizure started on the right side and became generalized. EMS was called in and patient was found to be unresponsive with severely elevated systolic blood pressure 200s. Placed on nonrebreather and brought to the emergency department. Was intubated, sedated and connected to mechanical ventilation. Patient had a seizure in 2005 after an episode of cerebrovascular accident. Has been on antihyperlipidemic drugs since then. Compliant with medication prior to onset of his current symptoms. Remins intubated. Attempts to open eyes at voice command Objective - Constitutional Vitals: Vital Signs - 12hr 09/25/16 09/25/16 09/25/16 21:30 22:00 22:30 Temperature Pulse Rate 123 H 121 H 117 H Pulse Rate [ From Monitor] Respiratory 12 12 12 Rate Blood Pressure 134/80 139/80 135/81 O2 Sat by Pulse 100 100 100 Oximetry 09/25/16 09/25/16 09/25/16 23:00 23:30 23:52 Temperature 98.6 F Pulse Rate 115 H 107 H Pulse Rate [ From Monitor] Respiratory 14 12 12 Rate Blood Pressure 137/93 134/64 O2 Sat by Pulse 100 100 Oximetry 09/26/16 09/26/16 09/26/16 00:00 00:05 00:24 Temperature Pulse Rate 109 H 109 H 107 H Pulse Rate [ 105 H From Monitor] Respiratory 24 Rate Blood Pressure 123/65 123/65 O2 Sat by Pulse 100 100 Oximetry 09/26/16 09/26/16 09/26/16 00:30 01:00 01:30 Temperature Pulse Rate 106 H 104 H 101 H Pulse Rate [ From Monitor] Respiratory 12 12 13 Rate Blood Pressure 129/63 144/57 144/57 O2 Sat by Pulse 100 100 100 Oximetry 09/26/16 09/26/16 09/26/16 02:00 02:30 03:00 Temperature Pulse Rate 106 H 122 H 123 H Pulse Rate [ From Monitor] Respiratory 12 13 14 Rate Blood Pressure 116/59 116/59 162/91 O2 Sat by Pulse 100 100 100 Oximetry 09/26/16 09/26/16 09/26/16 03:30 04:00 04:30 Temperature 98.7 F Pulse Rate 127 H 117 H 109 H Pulse Rate [ 90 From Monitor] Respiratory 18 23 12 Rate Blood Pressure 158/89 158/89 134/70 O2 Sat by Pulse 100 97 100 Oximetry 09/26/16 09/26/16 09/26/16 05:00 05:30 05:35 Temperature Pulse Rate 107 H 120 H Pulse Rate [ From Monitor] Respiratory 12 Rate Blood Pressure 136/72 136/72 136/72 O2 Sat by Pulse 100 100 100 Oximetry 09/26/16 09/26/16 09/26/16 06:00 06:30 07:00 Temperature Pulse Rate 118 H 112 H 101 H Pulse Rate [ From Monitor] Respiratory 13 12 12 Rate Blood Pressure 136/72 149/74 115/71 O2 Sat by Pulse 100 Oximetry 09/26/16 09/26/16 09/26/16 07:30 08:00 08:27 Temperature Pulse Rate 100 H 109 H 107 H Pulse Rate [ 108 H From Monitor] Respiratory 12 17 Rate Blood Pressure 122/60 122/60 122/72 O2 Sat by Pulse 100 100 100 Oximetry 09/26/16 08:32 Temperature 98.5 F Pulse Rate Pulse Rate [ From Monitor] Respiratory Rate Blood Pressure O2 Sat by Pulse Oximetry General appearance: Present: other (intubated and sedated) - EENT Eyes: PERRL, EOM intact Ears: bilateral: normal - Neck Neck: supple, normal ROM - Respiratory Respiratory effort: normal Respiratory: bilateral: CTA - Cardiovascular Rhythm: regular Heart Sounds: Present: S1 & S2. Absent: gallop, rub Extremities: pulses intact, No edema, normal color, Full ROM - Gastrointestinal General gastrointestinal: Present: soft, non-tender, non-distended, normal bowel sounds - Genitourinary Female genitourinary: normal - Integumentary Integumentary: clear, warm, dry - Musculoskeletal Musculoskeletal: 1, strength equal bilaterally - Neurologic Neurologic: moves all extremities - Labs CBC & Chem 7: 09/26/16 03:27 09/26/16 03:27 Labs: Abnormal lab results 09/25/16 09/25/16 09/25/16 Range/Units 14:57 21:39 21:59 RBC (3.65-5.03) M/mm3 Hgb (10.1-14.3) gm/dl Hct (30.3-42.9) % RDW (13.2-15.2) % [place] % (Auto) (0.0-7.3) % [place] # (0.0-0.8) K/mm3 POC ABG pH (7.35-7.45) POC ABG pO2 (80-105) Creatinine (0.7-1.2) mg/dL Glucose (65-100) mg/dL POC Glucose (70-105) Hemoglobin A1c 11.1 H (4-6) % C-Reactive Protein 2.40 H (0.00-1.30) mg/dL Albumin (3.9-5) g/dL Triglycerides (2-149) mg/dL HDL Cholesterol (40-59) mg/dL Valproic Acid < 2.8 L (50-100) ug/mL 09/25/16 09/26/16 09/26/16 Range/Units 22:46 03:27 03:27 RBC 3.21 L (3.65-5.03) M/mm3 Hgb 8.9 L (10.1-14.3) gm/dl Hct 29.4 L (30.3-42.9) % RDW 20.0 H (13.2-15.2) % [place] % (Auto) 14.5 H (0.0-7.3) % [place] # 1.2 H (0.0-0.8) K/mm3 POC ABG pH (7.35-7.45) POC ABG pO2 (80-105) Creatinine 1.9 H (0.7-1.2) mg/dL Glucose 284 H (65-100) mg/dL POC Glucose 407 H (70-105) Hemoglobin A1c (4-6) % C-Reactive Protein (0.00-1.30) mg/dL Albumin 3.0 L (3.9-5) g/dL Triglycerides 163 H (2-149) mg/dL HDL Cholesterol 39 L (40-59) mg/dL Valproic Acid (50-100) ug/mL 09/26/16 09/26/16 Range/Units 05:34 06:43 RBC (3.65-5.03) M/mm3 Hgb (10.1-14.3) gm/dl Hct (30.3-42.9) % RDW (13.2-15.2) % [place] % (Auto) (0.0-7.3) % [place] # (0.0-0.8) K/mm3 POC ABG pH 7.465 H (7.35-7.45) POC ABG pO2 168 H (80-105) Creatinine (0.7-1.2) mg/dL Glucose (65-100) mg/dL POC Glucose 307 H (70-105) Hemoglobin A1c (4-6) % C-Reactive Protein (0.00-1.30) mg/dL Albumin (3.9-5) g/dL Triglycerides (2-149) mg/dL HDL Cholesterol (40-59) mg/dL Valproic Acid (50-100) ug/mL
[2016-09-26] MEDS: LOVENOX SUB-Q SCH (09:29)
[2016-09-26] MEDS: COGENTIN PO SCH ×2 (09:29→22:00)
[2016-09-26] MEDS ORDERED: LOVENOX SUB-Q SCH (10:00)
--- NOTE | 2016-09-26 10:30 | Progress Note ---
Assessment and Plan - Patient Problems (1) Acute hypoxemic respiratory failure Current Visit: Yes Status: Acute Plan to address problem: - continue bronchodilators and pulmonary toilet - continue aspiration precautions / VAP bundles - begin weaning via PSV protocol as tolerated - wean oxygen to keep O2 Sats > 94% (2) Seizures Current Visit: Yes Status: Acute Plan to address problem: - continue AED - neurology evaluation ongoing - CT brain negative for acute process - neurology evaluation ongoing (3) CVA (cerebral vascular accident) Current Visit: Yes Status: Acute Qualifiers: CVA mechanism: C Precerebral and cerebral artery: P Laterality of affected vessel: L Plan to address problem: - old CVA's - secondary prevention modalities instituted (4) Type II diabetes mellitus Current Visit: No Status: Acute Qualifiers: Diabetes mellitus complication status: D Diabetes mellitus complication detail: D Diabetic retinopathy severity: D Proliferative retinopathy type: P Diabetes mellitus macular edema: D Diabetes mellitus intermediate designer insulin use : D Laterality: L Chronic kidney disease stage: C Plan to address problem: - SSI (5) Discharge planning issues Current Visit: Yes Status: Acute Plan to address problem: - hopefully tolerates SBT and can be extubated ..she remains critically ill on life sustaining interventions including MVS and at risk for further deterioration including deeath ..34' CCT Subjective Date of service: 09/26/16 Principal diagnosis: acute hypoxemic respiratory failure, status epilepticus Interval history: Seen and examined at bedside; 24 hour events reviewed; nursing and respiratory care staff consulted; no adverse overnight events reported to me; lightly sedated; denies acute chest pains; tolerated bedside SBT well; no emesis or overt aspiration Objective Vital Signs - 12hr 09/25/16 09/25/16 09/25/16 23:00 23:30 23:52 Temperature 98.6 F Pulse Rate 115 H 107 H Pulse Rate [ From Monitor] Respiratory 14 12 12 Rate Blood Pressure 137/93 134/64 O2 Sat by Pulse 100 100 Oximetry 09/26/16 09/26/16 09/26/16 00:00 00:05 00:24 Temperature Pulse Rate 109 H 109 H 107 H Pulse Rate [ 105 H From Monitor] Respiratory 24 Rate Blood Pressure 123/65 123/65 O2 Sat by Pulse 100 100 Oximetry 09/26/16 09/26/16 09/26/16 00:30 01:00 01:30 Temperature Pulse Rate 106 H 104 H 101 H Pulse Rate [ From Monitor] Respiratory 12 12 13 Rate Blood Pressure 129/63 144/57 144/57 O2 Sat by Pulse 100 100 100 Oximetry 09/26/16 09/26/16 09/26/16 02:00 02:30 03:00 Temperature Pulse Rate 106 H 122 H 123 H Pulse Rate [ From Monitor] Respiratory 12 13 14 Rate Blood Pressure 116/59 116/59 162/91 O2 Sat by Pulse 100 100 100 Oximetry 09/26/16 09/26/16 09/26/16 03:30 04:00 04:30 Temperature 98.7 F Pulse Rate 127 H 117 H 109 H Pulse Rate [ 90 From Monitor] Respiratory 18 23 12 Rate Blood Pressure 158/89 158/89 134/70 O2 Sat by Pulse 100 97 100 Oximetry 09/26/16 09/26/16 09/26/16 05:00 05:30 05:35 Temperature Pulse Rate 107 H 120 H Pulse Rate [ From Monitor] Respiratory 12 Rate Blood Pressure 136/72 136/72 136/72 O2 Sat by Pulse 100 100 100 Oximetry 09/26/16 09/26/16 09/26/16 06:00 06:30 07:00 Temperature Pulse Rate 118 H 112 H 101 H Pulse Rate [ From Monitor] Respiratory 13 12 12 Rate Blood Pressure 136/72 149/74 115/71 O2 Sat by Pulse 100 Oximetry 09/26/16 09/26/16 09/26/16 07:30 08:00 08:27 Temperature Pulse Rate 100 H 109 H 107 H Pulse Rate [ 108 H From Monitor] Respiratory 12 17 Rate Blood Pressure 122/60 122/60 122/72 O2 Sat by Pulse 100 100 100 Oximetry 09/26/16 08:32 Temperature 98.5 F Pulse Rate Pulse Rate [ From Monitor] Respiratory Rate Blood Pressure O2 Sat by Pulse Oximetry Constitutional: no acute distress, other (sedate) Eyes: non-icteric ENT: oropharynx moist Neck: supple, no lymphadenopathy Effort: mildly labored Ascultation: Bilateral: diminished breath sounds, rhonchi (scant) Cardiovascular: regular rate and rhythm Gastrointestinal: normoactive bowel sounds, soft, non-tender, non-distended Integumentary: normal Extremities: no cyanosis, no edema, pulses normal, no ischemia or petechiae Neurologic: unable to assess Psychiatric: other (sedated) CBC and BMP: 09/26/16 03:27 09/26/16 03:27 ABG, PT/INR, D-dimer: ABG POC ABG pH 7.465 (7.35-7.45) H 09/26/16 05:34 POC ABG pCO2 38.6 (35-45) 09/26/16 05:34 POC ABG pO2 168 (80-105) H 09/26/16 05:34 POC ABG HCO3 27.8 09/26/16 05:34 POC ABG Total CO2 29 09/26/16 05:34 POC ABG O2 Sat 100 09/26/16 05:34 PT/INR, D-dimer PT 13.2 Sec. (12.2-14.9) 09/25/16 08:35 INR 1.01 (0.87-1.13) 09/25/16 08:35 Abnormal lab findings: Abnormal Labs 09/25/16 09/25/16 09/25/16 14:57 21:39 21:59 RBC Hgb Hct RDW [place] % (Auto) [place] # POC ABG pH POC ABG pO2 Creatinine Glucose POC Glucose Hemoglobin A1c 11.1 H C-Reactive Protein 2.40 H Albumin Triglycerides HDL Cholesterol Valproic Acid < 2.8 L 09/25/16 09/26/16 09/26/16 22:46 03:27 03:27 RBC 3.21 L Hgb 8.9 L Hct 29.4 L RDW 20.0 H [place] % (Auto) 14.5 H [place] # 1.2 H POC ABG pH POC ABG pO2 Creatinine 1.9 H Glucose 284 H POC Glucose 407 H Hemoglobin A1c C-Reactive Protein Albumin 3.0 L Triglycerides 163 H HDL Cholesterol 39 L Valproic Acid 09/26/16 09/26/16 05:34 06:43 RBC Hgb Hct RDW [place] % (Auto) [place] # POC ABG pH 7.465 H POC ABG pO2 168 H Creatinine Glucose POC Glucose 307 H Hemoglobin A1c C-Reactive Protein Albumin Triglycerides HDL Cholesterol Valproic Acid Chest x-ray: image reviewed
[2016-09-26] MEDS: D5/0.45NS 1,000 ML IV SCH (12:05)
--- NOTE | 2016-09-26 12:29 | Progress Note ---
Assessment and Plan 56 YO F Hx L MCA stroke Jan 2016 w/ resultant dysphasia and R hemiparesis ambulates w/ cane/walker, seizure disorder on Jose 600mg TID and VPA 250mg TID but not complaint (confirmed w/ VPA level < 2.5 on admit) and reported left ICA stenosis, HTN, DM2, HLD, GIB p/w witnessed GTC on 09/25 7:30 AM. On exam 09/25 while on Propofol gtt pt opens eyes to stim, doesnt follow commands but withdraws to pain on L. On 09/26 AM while still on Propofol, pt following midline commands of eye opening/closing w/o recurrent seizure. Sz likely provoked from AED noncompliance. CTH nonacute. Plan and Recommendation: 1. Telemetry bed w/ Q4 hour neuro checks & Sz precautions 2. Labs: Serum/Urine Tox, UA/UCx, Electrolytes especially Na, Ca, Mg, and Glucose, TSH/Vit B12/Ammonia and correct as necessary 3. Cont Infectious work up/medical management for UTI, PNA, cellulitis, bacteremia, etc. 4. Avoid hyponatremia, hypo/hyper-calcemia, hypo/hyperglycemia, acidosis, hypoxia/hypoxemia, hypercarbia/hypercapnia 5. Avoid institution of any psychoactive medications (e.g. antihistamines, anticholinergics, BZD, hypnotics, opiates) as able unless low doses of low potency antipsychotic needed for behavioral issues complicating medical care 6. AED therapy: Resume home VPA 250mg TID and Jose 600mg TID. Check repeat 5/6 VPA level and adjust dose to therapeutic range 7. Avoid meds that can lower sz threshold e.g. Tramadol, fluroquinolones, carbapenems 8. If suspicion for EtOH dependence would supplement Thiamine, Folate and B12 9. Pt's family advised of [place] driving regulations: report date of presumed Seizure/unexplained loss of consciousness/awareness spell to [facility], refrain from operating a motor vehicle for 6 months after this date, and avoid unsupervised activity particularly around water or heights 10. I am away until 10/06/2016 so any further questions until then will need to be directed to money manager neurologist as needed. Subjective Date of service: 09/26/16 Principal diagnosis: acute hypoxemic respiratory failure, status epilepticus Interval history: tsf to ICU, no recurrent sz. Objective - Vital Sign Vital Signs - 12hr 05/05/17 05/05/17 05/05/17 00:30 01:00 01:30 Temperature Pulse Rate 106 H 104 H 101 H Pulse Rate [ From Monitor] Respiratory 12 12 13 Rate Blood Pressure 129/63 144/57 144/57 O2 Sat by Pulse 100 100 100 Oximetry 09/26/16 09/26/16 09/26/16 02:00 02:30 03:00 Temperature Pulse Rate 106 H 122 H 123 H Pulse Rate [ From Monitor] Respiratory 12 13 14 Rate Blood Pressure 116/59 116/59 162/91 O2 Sat by Pulse 100 100 100 Oximetry 09/26/16 09/26/16 09/26/16 03:30 04:00 04:30 Temperature 98.7 F Pulse Rate 127 H 117 H 109 H Pulse Rate [ 90 From Monitor] Respiratory 18 23 12 Rate Blood Pressure 158/89 158/89 134/70 O2 Sat by Pulse 100 97 100 Oximetry 09/26/16 09/26/16 09/26/16 05:00 05:30 05:35 Temperature Pulse Rate 107 H 120 H Pulse Rate [ From Monitor] Respiratory 12 Rate Blood Pressure 136/72 136/72 136/72 O2 Sat by Pulse 100 100 100 Oximetry 09/26/16 09/26/16 09/26/16 06:00 06:30 07:00 Temperature Pulse Rate 118 H 112 H 101 H Pulse Rate [ From Monitor] Respiratory 13 12 12 Rate Blood Pressure 136/72 149/74 115/71 O2 Sat by Pulse 100 Oximetry 09/26/16 09/26/16 09/26/16 07:30 08:00 08:27 Temperature Pulse Rate 100 H 109 H 107 H Pulse Rate [ 108 H From Monitor] Respiratory 12 17 Rate Blood Pressure 122/60 122/60 122/72 O2 Sat by Pulse 100 100 100 Oximetry 09/26/16 08:32 Temperature 98.5 F Pulse Rate Pulse Rate [ From Monitor] Respiratory Rate Blood Pressure O2 Sat by Pulse Oximetry - General Apperance Constitutional: acutely ill - EENT EENT: ATNC, PERRL, mucous membranes dry, hearing intact, vision intact - Respiratory Respiratory: chest non-tender, no respiratory distress, decreased breath sounds - Cardiovascular Cardiovascular: regular rate Extremities: no peripheral edema bilat, no clubbing, cyanosis, no inflammation, no ischemia or petechiae - Gastrointestinal Gastrointestinal: normoactive bowel sounds, soft, non-distended - Integumentary Integumentary: normal - Neurologic Cranial nerve examination: PERRL, EOMI, intact, intact gag reflex, Intact Vestibulo-ocular r, intact corneal reflex, facial droop (slight onR ) Speech examination: other (intact following midline commands of eye opening/ closing) Motor examination - right side: 3/5: biceps, triceps, wrist flexion, wrist extension, medical reception specialist, hip flexors, knee extensors, dorsiflexion, toe extension (EHL) , plantarflexion Motor examination - left side: 5/5: biceps, triceps, wrist flexion, wrist extension, medical reception specialist, hip flexors, knee extensors, dorsiflexion, toe extension (EHL) , plantarflexion Detailed sensory examination: intact, pain Reflex and gait examination: Babinski's sign (on R) Reflexes: 0: ankle (on R), 3+: bicep, knee, tricep - Musculoskeletal Musculoskeletal: no fluid collection, no pain, normal range of motion - Psychiatric Psychiatric: mood/affect appropriate, cooperative - Laboratory Findings CBC and BMP: 09/26/16 03:27 09/26/16 03:27 Abnormal Lab Findings: Abnormal Labs 09/25/16 09/25/16 09/25/16 14:57 21:39 21:59 RBC Hgb Hct RDW [place] % (Auto) [place] # POC ABG pH POC ABG pO2 Creatinine Glucose POC Glucose Hemoglobin A1c 11.1 H C-Reactive Protein 2.40 H Albumin Triglycerides HDL Cholesterol Valproic Acid < 2.8 L 09/25/16 09/26/16 09/26/16 22:46 03:27 03:27 RBC 3.21 L Hgb 8.9 L Hct 29.4 L RDW 20.0 H [place] % (Auto) 14.5 H [place] # 1.2 H POC ABG pH POC ABG pO2 Creatinine 1.9 H Glucose 284 H POC Glucose 407 H Hemoglobin A1c C-Reactive Protein Albumin 3.0 L Triglycerides 163 H HDL Cholesterol 39 L Valproic Acid 09/26/16 09/26/16 09/26/16 05:34 06:43 09:51 RBC Hgb Hct RDW [place] % (Auto) [place] # POC ABG pH 7.465 H POC ABG pO2 168 H Creatinine Glucose POC Glucose 307 H 256 H Hemoglobin A1c C-Reactive Protein Albumin Triglycerides HDL Cholesterol Valproic Acid
[2016-09-26] MEDS: DUONEB 0.5 MG-3 MG/3 ML SOLN IH SCH ×2 (14:14→19:33)
[2016-09-26] MEDS ORDERED: PANCREAZE DR 10,500 UNIT FEEDTUBE PRN (14:47)
[2016-09-26] MEDS ORDERED: SODIUM BICARBONATE FEEDTUBE PRN (14:47)
[2016-09-26] MEDS ORDERED: SIMPLE SYRUP FEEDTUBE PRN ×2 (14:47)
[2016-09-26 15:45] LABS: ISTAT Base Excess 4; ISTAT HCO3 28.6; ISTAT PCO2 44.6 (35-45); ISTAT PH 7.415 (7.35-7.45); ISTAT PO2 155 (80-105); ISTAT SO2 99; ISTAT TCO2 30
--- NOTE | 2016-09-26 18:20 | Magnetic Resonance Report ---
FINAL REPORT EXAM: MR BRAIN WO CON HISTORY: stroke TECHNIQUE: MRI brain without contrast PRIORS: Comparison made to prior CT head of September 25, 2016 and MRI of March 25, 2016 FINDINGS: Again identified is encephalomalacia with gliosis involving the left posterior temporoparietal MCA distribution. No new areas of acute restriction seen on diffusion study. No acute intra or extra-axial hemorrhage is identified. No evidence for midline shift or mass effect. No acute parenchymal abnormalities are identified. No intra or extra-axial mass is appreciated. IMPRESSION: Remote left posterior MCA distribution infarct No acute abnormality identified
--- NOTE | 2016-09-26 18:30 | Magnetic Resonance Report ---
FINAL REPORT EXAM: MR MRA/MRV HEAD WO CON HISTORY: stroke TECHNIQUE: MR angiogram head [id number] PRIORS: Comparison is dated March 25, 2016 FINDINGS: There is markedly diminished flow to the left distal ICA and cavernous portion of the left ICA along with diminished flow to the left M2 and M3 distributions. There is some decreasing caliber flow within the cavernous right ICA which likely reflects atherosclerotic disease unchanged from prior exam. EMILIE circulation is unremarkable. The right MCA distribution demonstrated is within normal limits. No evidence for major vascular occlusion or aneurysm. Dominant left vertebral artery is noted. Basilar and DIRECTOR OF PAYROLL distributions are within normal limits. IMPRESSION: Markedly diminished flow to the cavernous left ICA and distal left ICA with decreased flow to the left M2 and M3 distributions unchanged from prior exam Some decreased caliber and flow within the right cavernous ICA likely reflecting underlying atherosclerosis. No acute change identified from prior exam
[2016-09-26] MEDS: LEVEMIR SUB-Q SCH (22:00)
[2016-09-26] MEDS ORDERED: HALDOL IM ONE (22:00)
[2016-09-26] MEDS: ZOCOR PO SCH (22:00)
--- NOTE | 2016-09-27 00:28 | Consultation ---
PULMONARY CRITICAL CARE CONSULTATION NOTE CONSULTING PHYSICIAN: Dr. Solis in the Emergency Room and Dr. Orozco. REASON FOR CONSULTATION: Acute hypoxemic respiratory failure, suspect status epilepticus. CHIEF COMPLAINT AND HISTORY OF PRESENT ILLNESS: The patient is a 56-year-old -[place] female with past medical history indeed significant for a diagnosis of multiple cerebrovascular accidents who was brought into the Emergency Room by the Emergency Medical Services after being found unresponsive at home. She was lying on the floor. Shortly before arrival in the ER she appeared to be having seizure-like activity. When the Emergency Medical Services got there, they found her with tonic-clonic activity to her right upper and right lower extremities, right side essentially, O2 sats were 75%, systolic blood pressure was greater than 200. She was placed on a nonrebreather and brought into the Emergency Room. In the Emergency Room, it seems like the patient continued to have seizure-like activity, as a result she was intubated and transferred to the Intensive Care Unit where I stopped by to see her. When I stopped by to see her, she was on a propofol drip, really was not going a whole about I think about 15 mcg per kilogram per minute. She was mostly nonresponsive. I do not have any history of emesis or overt aspiration, daughter denied any prior febrile illness or other obvious infection that was being treated prior to coming to the Emergency Room. That really is as much of the history of presentation as I have now. She is not a current tobacco smoker, remote history is unknown. PAST MEDICAL HISTORY: Again history of hypertension, cerebrovascular accident, diabetes, gastroesophageal reflux disease, history of arthritis. PAST SURGICAL HISTORY: History of cholecystectomy. She has had a spinal surgery. She has had carpal tunnel surgery. She has had a hysterectomy and repair of an ankle fracture. MEDICATIONS: She was on at the time I stopped by to see her according to the medication administration record included the following: Tylenol 650 mg p.o. q.4h. p.r.n., all p.o. meds via the feeding tube. Lipitor 20 mg p.o. at bedtime, Cogentin ____ p.o. b.i.d., p.r.n. Dulcolax, Lovenox 40 mg subcutaneous daily, fentanyl drip had been ordered for 1 mcg/kg/hr, was not running when I was there, Neurontin 600 mg p.o. q.8h. p.r.n., hydralazine 10 mg IV q.6h. p.r.n. systolic blood pressure greater than 150, detemir insulin 10 units subcutaneous at bedtime, Reglan 10 mg p.o. q.6h. p.r.n. nausea and vomiting, Zofran 4 mg IV q.8h. p.r.n. nausea and vomiting, propofol drip was going on apparently at 10 mcg/kg/min, Zocor 20 mg p.o. at bedtime and Depakote 250 mg IV q.8h. had been ordered. ALLERGIES: LATEX, PENICILLIN, SULFA DRUGS, NATURE OF THESE ALLERGIES UNKNOWN. DIET: Slightly obese lady. Family denies any significant weight loss or gain in the preceding few weeks to months. FAMILY AND SOCIAL HISTORY: Apparently lives in the community with family. No current alcohol, tobacco, or illicit drug use or abuse. Remote history is unknown. REVIEW OF SYSTEMS: Unobtainable secondary to the patient's medical and mental condition. Since she has been here, she had reported seizure in the Emergency Room, no hematochezia, no melena. No gross hematuria, no hematemesis. No bloody tracheal secretions. PHYSICAL EXAMINATION: VITAL SIGNS: At presentation in the Emergency Room, she was afebrile, temperature 98.2 Fahrenheit rectally, pulse was 133, respiratory rate was 10, blood pressure was 195/118. Oxygen sats were 100%, inspired oxygen concentration was not recorded. HEAD, EYES, EARS, NOSE AND THROAT: Pupils really almost pin point bilaterally. Extraocular muscle movements could not be assessed, appeared to be a downward gaze. No scleral icterus. Endotracheal tube was in place, taped at the lips around 24 cm. NECK: Grossly, there were no palpable lymph nodes in the supraclavicular or submandibular lymph node chains. LUNGS: Auscultation of both lung dubois, good bilateral breath sounds, no wheezing. HEART: Heart sounds 1 and 2 are heard, regular rate and rhythm at the time of my evaluation. ABDOMEN: Soft, full, bowel sounds are positive, nontender. EXTREMITIES: Without overt digital clubbing, cyanosis, or pedal edema. NEUROLOGIC: She was nonresponsive, sedated. LABORATORY DATA: From my review are as follows: White cell count 6100, hemoglobin 10.5, hematocrit 33.3, and platelet count 340. No band forms. INR 1.01. Arterial blood gas showed a pH of 7.60, pCO2 of 27, pO2 of 65 that was on 100% FiO2 at that time, ventilator settings were not recorded at that time, but the ventilator settings that I do have showed a tidal volume of 500, 50% FIO2 on the set rate of 14 at that time, PEEP was not recorded, but it was a 5 when I saw her. Serum sodium 140, potassium 4.4, chloride 100, bicarbonate 24, BUN 14, creatinine 1.6, glucose 352. Troponin within normal limits. Urinalysis positive for nitrites, only 2 white cells per high power field, 4+ bacteria. Depakote level was less than 2.8. No microbiology studies here. CT scans have been done of the head. I have reviewed the radiologist's interpretation. No definite acute intracranial abnormality, expected interval evolution of the left MCA infarct. Also, suggestion bilateral cataract surgery. Chest x-ray was done. I have reviewed the chest x-ray. I have also reviewed the radiologist's interpretation. The main finding is that the ET tube appears to be almost the right mainstem intubation. Otherwise, clear x-ray, no acute process. ASSESSMENT AND PLAN: We have a middle-aged lady in with presumed status seizures. From a respiratory standpoint, we will continue to wean the oxygen to keep sats greater than about 92-94%. Aspiration precautions and other ventilator bundles will be instituted. Bronchodilators are going to be ordered and scheduled in the short term and then p.r.n. thereafter. The plan will be to begin weaning as early as tomorrow if she meets the criteria. Otherwise, her mental status might be limiting criteria to final extubation; otherwise, we will follow her clinically. From a cardiovascular standpoint, we will continue titrating oral antihypertensive medications. She will have the p.r.n. hydralazine. Neurology recommendations will also be followed in terms of dropping the blood pressure in the target range. There is no obvious acute infarct, so that might not be particularly important. Troponins are unremarkable. We will follow her clinically. A 2D echocardiogram will be at the behest of the neurologist. From GI and nutritional standpoint, enteral nutrition will be the feeding modality of choice, consult will be placed for equipment cleaner, feeding tube will be placed and enteral nutrition will start as soon as possible. I should mention she will be started on GI prophylaxis. From a renal standpoint, I note the elevation in the serum creatinine. Gentle hydration will be continued. Electrolytes will be followed as necessary. I will order magnesium and phosphorus levels done and correct them as necessary. From MANAGER MECHANICAL standpoint, I believe a Neurology consult has been placed and the evaluation is ongoing, we will follow their recommendations. She does not appear to be seizing actively. We will continue the Depakote and we will wean her off the propofol. From infectious disease standpoint, no signs and symptoms of overwhelming sepsis, no acute indication for antibiotic therapy; however, a tracheal aspirate will be sent and I will get a lactic acid level too and trend as necessary. From a general and hospital healthcare maintenance standpoint, she is going to be on GI and DVT prophylaxis. Flu and pneumonia vaccination will be per protocol. Thank you very much for the consult Dr. Solis, Dr. Orozco. We will follow along and make further recommendations as picture progresses/becomes clearer. At this point, I spent about 30-35 minutes of critical care time without overlap and excluding any procedural time that may be necessary. She is critically ill, on life-sustaining interventions including mechanical ventilatory support, at risk for further deterioration including . JOB# [id number] SIMONA/DULCE MARIA
[2016-09-27] MEDS: NOVOLOG SUB-Q SCH ×6 (02:11→21:52)
[2016-09-27] MEDS: DUONEB 0.5 MG-3 MG/3 ML SOLN IH SCH ×3 (02:30→19:29)
[2016-09-27 04:30] LABS: Albumin/Globulin Ratio 0.9 %; Alkaline Phosphatase 88 units/L (35-129); Anion Gap 18 mmol/L; BUN/Creatinine Ratio 11.42; Blood Urea Nitrogen 16 mg/dL (7-17); Calcium 8.9 mg/dL (8.4-10.2); Carbon Dioxide 25 mmol/L (22-30); Chloride 101.3 mmol/L (98-107); Glucose 135 mg/dL (65-100); Potassium 3.8 mmol/L (3.6-5.0); Sodium 140 mmol/L (137-145); Total Protein 6.2 g/dL (6.3-8.2)
[2016-09-27 04:54] LABS: Alanine Aminotransferase < 5 units/L (7-56)
[2016-09-27] MEDS: NACL 0.9% IV SCH ×3 (06:58→21:22)
[2016-09-27] MEDS: DEPACON IV SCH ×3 (06:58→21:22)
[2016-09-27] MEDS: NEURONTIN PO SCH ×3 (07:04→21:22)
[2016-09-27] MEDS: LOVENOX SUB-Q SCH (09:31)
[2016-09-27 09:34] LABS: Basophils % (Auto) 0.2 % (0.0-1.8); Eosinophils % (Auto) 2.5 % (0.0-4.3); Mean Corpuscular HGB Conc 30 % (30-34); Mean Corpuscular Hemoglobin 27 pg (28-32); Mean Corpuscular Volume 88 fl (79-97); Platelet Count 288 K/mm3 (140-440); Red Blood Count 3.87 M/mm3 (3.65-5.03); White Blood Count 12.6 K/mm3 (4.5-11.0)
[2016-09-27 09:47] LABS: Hematocrit 34.1 % (30.3-42.9); Hemoglobin 10.3 gm/dl (10.1-14.3); Red Cell Distribution Width 20.2 % (13.2-15.2)
[2016-09-27] MEDS: COGENTIN PO SCH ×2 (10:18→21:22)
--- NOTE | 2016-09-27 10:18 | XRay Report ---
AP CHEST :09/27/16 CLINICAL: Followup respiratory failure. COMPARISON:09/26/16 FINDINGS: The endotracheal and nasogastric tubes have been removed. No tubes or lines. The lungs are normally expanded and clear. Normal heart and pulmonary vessels. IMPRESSION: Normal chest after extubation.
--- NOTE | 2016-09-27 12:28 | Progress Note ---
Assessment and Plan - Patient Problems (1) Acute hypoxemic respiratory failure Current Visit: Yes Status: Acute Plan to address problem: - continue bronchodilators and pulmonary toilet - continue aspiration precautions - wean oxygen to keep O2 Sats > 94% (2) Seizures Current Visit: Yes Status: Acute Plan to address problem: - continue AED - neurology evaluation ongoing - CT brain negative for acute process - neurology evaluation ongoing (3) CVA (cerebral vascular accident) Current Visit: Yes Status: Acute Qualifiers: CVA mechanism: C Precerebral and cerebral artery: P Laterality of affected vessel: L Plan to address problem: - old CVA's - secondary prevention modalities instituted (4) Type II diabetes mellitus Current Visit: No Status: Acute Qualifiers: Diabetes mellitus complication status: D Diabetes mellitus complication detail: D Diabetic retinopathy severity: D Proliferative retinopathy type: P Diabetes mellitus macular edema: D Diabetes mellitus mcfp insulin use : D Laterality: L Chronic kidney disease stage: C Plan to address problem: - SSI (5) Oropharyngeal dysphagia Current Visit: Yes Status: Acute Plan to address problem: - failed swallow evaluation - refused feeding tube - await her daughter to talk to her (6) Discharge planning issues Current Visit: Yes Status: Acute Plan to address problem: - transfer to medical floor Subjective Date of service: 09/27/16 Principal diagnosis: acute hypoxemic respiratory failure, status epilepticus Interval history: Seen and examined at bedside; 24 hour events reviewed; nursing and respiratory care staff consulted; no adverse overnight events reported to me; doing well respiratory and otherwise post extubation; she failed her swallow evaluation though; denies chest pains; No N/V/F/C Objective Vital Signs - 12hr 09/27/16 09/27/16 09/27/16 00:30 01:00 01:15 Temperature Pulse Rate 98 H 96 H 96 H Pulse Rate [ Anterior Bilateral Throughout] Pulse Rate [ 94 H None] Pulse Rate [ Right Radial] Respiratory 19 19 18 Rate Respiratory Rate [Anterior Bilateral Throughout] Blood Pressure 95/56 87/50 107/78 O2 Sat by Pulse 100 100 Oximetry 09/27/16 09/27/16 09/27/16 01:30 02:00 02:30 Temperature Pulse Rate 90 101 H 95 H Pulse Rate [ 97 H Anterior Bilateral Throughout] Pulse Rate [ None] Pulse Rate [ Right Radial] Respiratory 18 23 20 Rate Respiratory 22 Rate [Anterior Bilateral Throughout] Blood Pressure 93/52 115/70 106/67 O2 Sat by Pulse 100 Oximetry 09/27/16 09/27/16 09/27/16 02:40 03:00 03:15 Temperature Pulse Rate 104 H Pulse Rate [ 95 H Anterior Bilateral Throughout] Pulse Rate [ None] Pulse Rate [ Right Radial] Respiratory 22 21 Rate Respiratory 20 Rate [Anterior Bilateral Throughout] Blood Pressure 105/57 O2 Sat by Pulse 100 100 Oximetry 09/27/16 09/27/16 09/27/16 03:30 04:00 04:15 Temperature 97.6 F Pulse Rate 102 H 105 H Pulse Rate [ Anterior Bilateral Throughout] Pulse Rate [ None] Pulse Rate [ Right Radial] Respiratory 20 23 Rate Respiratory Rate [Anterior Bilateral Throughout] Blood Pressure 108/57 114/55 O2 Sat by Pulse 95 100 Oximetry 09/27/16 09/27/16 09/27/16 04:30 05:00 05:30 Temperature Pulse Rate 101 H 96 H 92 H Pulse Rate [ Anterior Bilateral Throughout] Pulse Rate [ None] Pulse Rate [ Right Radial] Respiratory 21 21 17 Rate Respiratory Rate [Anterior Bilateral Throughout] Blood Pressure 112/52 95/50 98/50 O2 Sat by Pulse 100 100 100 Oximetry 09/27/16 09/27/16 09/27/16 06:00 06:15 06:30 Temperature Pulse Rate 102 H 103 H Pulse Rate [ Anterior Bilateral Throughout] Pulse Rate [ None] Pulse Rate [ Right Radial] Respiratory 20 20 21 Rate Respiratory Rate [Anterior Bilateral Throughout] Blood Pressure 98/50 134/73 O2 Sat by Pulse 100 100 Oximetry 09/27/16 09/27/16 09/27/16 07:00 07:30 07:37 Temperature 98.0 F Pulse Rate 96 H 98 H Pulse Rate [ Anterior Bilateral Throughout] Pulse Rate [ None] Pulse Rate [ Right Radial] Respiratory 19 20 Rate Respiratory Rate [Anterior Bilateral Throughout] Blood Pressure 103/45 123/68 O2 Sat by Pulse 100 97 Oximetry 09/27/16 09/27/16 09/27/16 08:00 08:17 08:18 Temperature Pulse Rate 96 H Pulse Rate [ 99 H Anterior Bilateral Throughout] Pulse Rate [ None] Pulse Rate [ 99 H Right Radial] Respiratory 17 Rate Respiratory 24 Rate [Anterior Bilateral Throughout] Blood Pressure 123/68 O2 Sat by Pulse 100 Oximetry 09/27/16 09/27/16 09/27/16 08:30 09:00 09:30 Temperature Pulse Rate 99 H 112 H 121 H Pulse Rate [ Anterior Bilateral Throughout] Pulse Rate [ None] Pulse Rate [ Right Radial] Respiratory 24 24 27 H Rate Respiratory Rate [Anterior Bilateral Throughout] Blood Pressure 110/52 117/51 117/51 O2 Sat by Pulse 100 100 100 Oximetry 09/27/16 09/27/16 09/27/16 10:00 10:31 11:01 Temperature Pulse Rate 120 H 120 H 116 H Pulse Rate [ Anterior Bilateral Throughout] Pulse Rate [ None] Pulse Rate [ Right Radial] Respiratory 26 H 19 21 Rate Respiratory Rate [Anterior Bilateral Throughout] Blood Pressure 102/57 126/79 121/47 O2 Sat by Pulse 100 100 100 Oximetry 09/27/16 09/27/16 11:35 12:00 Temperature Pulse Rate 116 H 118 H Pulse Rate [ Anterior Bilateral Throughout] Pulse Rate [ None] Pulse Rate [ Right Radial] Respiratory 25 H 21 Rate Respiratory Rate [Anterior Bilateral Throughout] Blood Pressure 121/47 108/57 O2 Sat by Pulse 100 100 Oximetry Constitutional: no acute distress, other (? dementia element) Eyes: non-icteric ENT: oropharynx moist Neck: supple, no lymphadenopathy Effort: normal Ascultation: Bilateral: diminished breath sounds, rhonchi (scant in bases) Cardiovascular: regular rate and rhythm Gastrointestinal: normoactive bowel sounds, soft, non-tender, non-distended Integumentary: normal Extremities: no cyanosis, no edema, pulses normal, no ischemia or petechiae Neurologic: non-focal exam, pupils equal and round, other (dementia element) Psychiatric: other (sedated) CBC and BMP: 09/27/16 03:20 09/27/16 03:20 ABG, PT/INR, D-dimer: ABG POC ABG pH 7.415 (7.35-7.45) 09/26/16 15:05 POC ABG pCO2 44.6 (35-45) 09/26/16 15:05 POC ABG pO2 155 (80-105) H 09/26/16 15:05 POC ABG HCO3 28.6 09/26/16 15:05 POC ABG Total CO2 30 09/26/16 15:05 POC ABG O2 Sat 99 09/26/16 15:05 PT/INR, D-dimer PT 13.2 Sec. (12.2-14.9) 09/25/16 08:35 INR 1.01 (0.87-1.13) 09/25/16 08:35 Abnormal lab findings: Abnormal Labs 09/25/16 09/25/16 09/25/16 14:57 21:39 21:59 WBC RBC Hgb Hct MCH RDW [place] % (Auto) [place] # POC ABG pH POC ABG pO2 Creatinine Glucose POC Glucose Hemoglobin A1c 11.1 H ALT C-Reactive Protein 2.40 H Total Protein Albumin Triglycerides HDL Cholesterol Valproic Acid < 2.8 L 09/25/16 09/26/16 09/26/16 22:46 03:27 03:27 WBC RBC 3.21 L Hgb 8.9 L Hct 29.4 L MCH RDW 20.0 H [place] % (Auto) 14.5 H [place] # 1.2 H POC ABG pH POC ABG pO2 Creatinine 1.9 H Glucose 284 H POC Glucose 407 H Hemoglobin A1c ALT C-Reactive Protein Total Protein Albumin 3.0 L Triglycerides 163 H HDL Cholesterol 39 L Valproic Acid 09/26/16 09/26/16 09/26/16 05:34 06:43 09:51 WBC RBC Hgb Hct MCH RDW [place] % (Auto) [place] # POC ABG pH 7.465 H POC ABG pO2 168 H Creatinine Glucose POC Glucose 307 H 256 H Hemoglobin A1c ALT C-Reactive Protein Total Protein Albumin Triglycerides HDL Cholesterol Valproic Acid 09/26/16 09/26/16 09/26/16 14:41 15:05 17:37 WBC RBC Hgb Hct MCH RDW [place] % (Auto) [place] # POC ABG pH POC ABG pO2 155 H Creatinine Glucose POC Glucose 121 H 137 H Hemoglobin A1c ALT C-Reactive Protein Total Protein Albumin Triglycerides HDL Cholesterol Valproic Acid 09/26/16 09/27/16 09/27/16 22:08 02:11 03:20 WBC 12.6 H RBC Hgb Hct MCH 27 L RDW 20.2 H [place] % (Auto) 12.8 H [place] # 1.6 H POC ABG pH POC ABG pO2 Creatinine Glucose POC Glucose 211 H 114 H Hemoglobin A1c ALT C-Reactive Protein Total Protein Albumin Triglycerides HDL Cholesterol Valproic Acid 09/27/16 09/27/16 03:20 05:40 WBC RBC Hgb Hct MCH RDW [place] % (Auto) [place] # POC ABG pH POC ABG pO2 Creatinine 1.4 H Glucose 135 H POC Glucose 218 H Hemoglobin A1c ALT < 5 L C-Reactive Protein Total Protein 6.2 L Albumin 3.0 L Triglycerides HDL Cholesterol Valproic Acid
--- NOTE | 2016-09-27 13:22 | Progress Note ---
Assessment and Plan - Patient Problems (1) Acute hypoxemic respiratory failure Current Visit: Yes Status: Acute Plan to address problem: Stable neurological status . Will asess swallowing abilty and start on oral intake if swallowing eval is normal (2) CVA (cerebral vascular accident) Current Visit: Yes Status: Acute Qualifiers: CVA mechanism: C Precerebral and cerebral artery: P Laterality of affected vessel: L Plan to address problem: Stable neurological status (3) Status epilepticus Current Visit: Yes Status: Acute Plan to address problem: Stable on current anti-Seizure meds (4) Acute right-sided weakness Current Visit: No Status: Acute Plan to address problem: Status post previous CVA Subjective Date of service: 09/27/16 Principal diagnosis: acute hypoxemic respiratory failure, status epilepticus Interval history: Covering for Dr. Dr. Tyson Patient seen and examined chart reviewed. Patient's lying comfortably in bed denied any complaints at this time status post extubation yesterday, no fever reported by nursing staff and no new complaints. Objective - Exam Narrative Exam: GENERAL: Patient not in acute distress resting comfortably, pupils equal and reactive to light bilaterally HEENT: [Patient is not pale, not jaundiced, not cyanosed.] NECK: [No JVD, no thyroid enlargement and no lymphadenopathy.] CHEST/LUNGS: Good air exchange bilaterally, no wheezes no rales, no dullness to percussion, symmetrical air exchange bilaterally HEART/CARDIOVASCULAR: [Regular rate and rhythm, S1 and S2 only, no murmur.] ABDOMEN: [Abdomen is soft, nondistended, no guarding, no rebound tenderness, no masses palpable per abdomen, active bowel sounds.] SKIN: [Warm and dry, no rash.] NEURO: [Awake, alert, EXTREMITIES: [No pedal edema, good peripheral pulses, no finger or toe clubbing. ] - Constitutional Vitals: Vital Signs - 12hr 09/27/16 09/27/16 09/27/16 01:30 02:00 02:30 Temperature Pulse Rate 90 101 H 95 H Pulse Rate [ 97 H Anterior Bilateral Throughout] Pulse Rate [ Right Radial] Respiratory 18 23 20 Rate Respiratory 22 Rate [Anterior Bilateral Throughout] Blood Pressure 93/52 115/70 106/67 O2 Sat by Pulse 100 Oximetry 09/27/16 09/27/16 09/27/16 02:40 03:00 03:15 Temperature Pulse Rate 104 H Pulse Rate [ 95 H Anterior Bilateral Throughout] Pulse Rate [ Right Radial] Respiratory 22 21 Rate Respiratory 20 Rate [Anterior Bilateral Throughout] Blood Pressure 105/57 O2 Sat by Pulse 100 100 Oximetry 09/27/16 09/27/16 09/27/16 03:30 04:00 04:15 Temperature 97.6 F Pulse Rate 102 H 105 H Pulse Rate [ Anterior Bilateral Throughout] Pulse Rate [ Right Radial] Respiratory 20 23 Rate Respiratory Rate [Anterior Bilateral Throughout] Blood Pressure 108/57 114/55 O2 Sat by Pulse 95 100 Oximetry 09/27/16 09/27/16 09/27/16 04:30 05:00 05:30 Temperature Pulse Rate 101 H 96 H 92 H Pulse Rate [ Anterior Bilateral Throughout] Pulse Rate [ Right Radial] Respiratory 21 21 17 Rate Respiratory Rate [Anterior Bilateral Throughout] Blood Pressure 112/52 95/50 98/50 O2 Sat by Pulse 100 100 100 Oximetry 09/27/16 09/27/16 09/27/16 06:00 06:15 06:30 Temperature Pulse Rate 102 H 103 H Pulse Rate [ Anterior Bilateral Throughout] Pulse Rate [ Right Radial] Respiratory 20 20 21 Rate Respiratory Rate [Anterior Bilateral Throughout] Blood Pressure 98/50 134/73 O2 Sat by Pulse 100 100 Oximetry 09/27/16 09/27/16 09/27/16 07:00 07:30 07:37 Temperature 98.0 F Pulse Rate 96 H 98 H Pulse Rate [ Anterior Bilateral Throughout] Pulse Rate [ Right Radial] Respiratory 19 20 Rate Respiratory Rate [Anterior Bilateral Throughout] Blood Pressure 103/45 123/68 O2 Sat by Pulse 100 97 Oximetry 09/27/16 09/27/16 09/27/16 08:00 08:17 08:18 Temperature Pulse Rate 96 H Pulse Rate [ 99 H Anterior Bilateral Throughout] Pulse Rate [ 99 H Right Radial] Respiratory 17 Rate Respiratory 24 Rate [Anterior Bilateral Throughout] Blood Pressure 123/68 O2 Sat by Pulse 100 Oximetry 09/27/16 09/27/16 09/27/16 08:30 09:00 09:30 Temperature Pulse Rate 99 H 112 H 121 H Pulse Rate [ Anterior Bilateral Throughout] Pulse Rate [ Right Radial] Respiratory 24 24 27 H Rate Respiratory Rate [Anterior Bilateral Throughout] Blood Pressure 110/52 117/51 117/51 O2 Sat by Pulse 100 100 100 Oximetry 09/27/16 09/27/16 09/27/16 10:00 10:31 11:01 Temperature Pulse Rate 120 H 120 H 116 H Pulse Rate [ Anterior Bilateral Throughout] Pulse Rate [ Right Radial] Respiratory 26 H 19 21 Rate Respiratory Rate [Anterior Bilateral Throughout] Blood Pressure 102/57 126/79 121/47 O2 Sat by Pulse 100 100 100 Oximetry 09/27/16 09/27/16 11:35 12:00 Temperature 98.4 F Pulse Rate 116 H 118 H Pulse Rate [ Anterior Bilateral Throughout] Pulse Rate [ Right Radial] Respiratory 25 H 21 Rate Respiratory Rate [Anterior Bilateral Throughout] Blood Pressure 121/47 108/57 O2 Sat by Pulse 100 100 Oximetry - Labs CBC & Chem 7: 09/27/16 03:20 09/27/16 03:20 Labs: Abnormal lab results 09/26/16 09/26/16 09/26/16 Range/Units 14:41 15:05 17:37 WBC (4.5-11.0) K/mm3 MCH (28-32) pg RDW (13.2-15.2) % [place] % (Auto) (0.0-7.3) % [place] # (0.0-0.8) K/mm3 POC ABG pO2 155 H (80-105) Creatinine (0.7-1.2) mg/dL Glucose (65-100) mg/dL POC Glucose 121 H 137 H (70-105) ALT (7-56) units/L Total Protein (6.3-8.2) g/dL Albumin (3.9-5) g/dL 09/26/16 09/27/16 09/27/16 Range/Units 22:08 02:11 03:20 WBC 12.6 H (4.5-11.0) K/mm3 MCH 27 L (28-32) pg RDW 20.2 H (13.2-15.2) % [place] % (Auto) 12.8 H (0.0-7.3) % [place] # 1.6 H (0.0-0.8) K/mm3 POC ABG pO2 (80-105) Creatinine (0.7-1.2) mg/dL Glucose (65-100) mg/dL POC Glucose 211 H 114 H (70-105) ALT (7-56) units/L Total Protein (6.3-8.2) g/dL Albumin (3.9-5) g/dL 09/27/16 09/27/16 09/27/16 Range/Units 03:20 05:40 09:21 WBC (4.5-11.0) K/mm3 MCH (28-32) pg RDW (13.2-15.2) % [place] % (Auto) (0.0-7.3) % [place] # (0.0-0.8) K/mm3 POC ABG pO2 (80-105) Creatinine 1.4 H (0.7-1.2) mg/dL Glucose 135 H (65-100) mg/dL POC Glucose 218 H 144 H (70-105) ALT < 5 L (7-56) units/L Total Protein 6.2 L (6.3-8.2) g/dL Albumin 3.0 L (3.9-5) g/dL
[2016-09-27] MEDS ORDERED: SIMPLE SYRUP FEEDTUBE PRN ×2 (16:51)
[2016-09-27] MEDS ORDERED: SODIUM BICARBONATE FEEDTUBE PRN (16:51)
[2016-09-27] MEDS ORDERED: PANCREAZE DR 10,500 UNIT FEEDTUBE PRN (16:51)
--- NOTE | 2016-09-27 16:59 | XRay Report ---
FINAL REPORT EXAM: XR ABDOMEN 1V AP HISTORY: NG tube placement TECHNIQUE: Supine view the abdomen PRIORS: None. FINDINGS: There is feeding tube present. Distal end overlying the gastric antrum. Visualized bowel gas pattern is unremarkable. Evidence for gastric or small bowel distention. Surgical clips in the right upper quadrant likely indicate prior cholecystectomy. IMPRESSION: Feeding tube with tip overlying the gastric antrum
--- NOTE | 2016-09-27 20:18 | XRay Report ---
FINAL REPORT EXAM: XR ABDOMEN 1V AP HISTORY: Feeding tube placement TECHNIQUE: Abdomen supine PRIORS: Compared with today's earlier exam 1933 hours FINDINGS: Feeding tube is again identified. Distal tip overlies the region the distal gastric antrum and pylorus crossing the midline. Not significantly changed from prior exam. Bowel gas pattern is unremarkable. IMPRESSION: Tip of the feeding tube overlies the distal gastric antrum and pylorus given slight difference in projection probably unchanged from prior study.
[2016-09-27] MEDS: ZOCOR PO SCH (21:21)
[2016-09-27] MEDS: LEVEMIR SUB-Q SCH (23:43)
[2016-09-28] MEDS: DUONEB 0.5 MG-3 MG/3 ML SOLN IH SCH ×5 (02:14→22:05)
[2016-09-28] MEDS: NOVOLOG SUB-Q SCH ×6 (02:25→23:09)
[2016-09-28 04:55] LABS: Basophils % (Auto) 0.4 % (0.0-1.8); Eosinophils % (Auto) 2.6 % (0.0-4.3); Hematocrit 29.7 % (30.3-42.9); Hemoglobin 9.4 gm/dl (10.1-14.3); Mean Corpuscular HGB Conc 32 % (30-34); Mean Corpuscular Hemoglobin 27 pg (28-32); Mean Corpuscular Volume 86 fl (79-97); Platelet Count 305 K/mm3 (140-440); Red Blood Count 3.45 M/mm3 (3.65-5.03); White Blood Count 7.4 K/mm3 (4.5-11.0)
[2016-09-28 05:15] LABS: Red Cell Distribution Width 20.8 % (13.2-15.2)
[2016-09-28 05:19] LABS: Albumin 3.1 g/dL (3.9-5); Albumin/Globulin Ratio 1.2 %; Alkaline Phosphatase 96 units/L (35-129); Anion Gap 20 mmol/L; BUN/Creatinine Ratio 13.33; Blood Urea Nitrogen 16 mg/dL (7-17); Calcium 8.8 mg/dL (8.4-10.2); Carbon Dioxide 24 mmol/L (22-30); Chloride 101.6 mmol/L (98-107); Glucose 284 mg/dL (65-100); Potassium 4.1 mmol/L (3.6-5.0); Sodium 141 mmol/L (137-145); Total Protein 5.7 g/dL (6.3-8.2)
[2016-09-28 05:39] LABS: Alanine Aminotransferase < 5 units/L (7-56)
[2016-09-28] MEDS: NEURONTIN PO SCH ×3 (06:06→23:08)
[2016-09-28] MEDS: LOVENOX SUB-Q SCH (09:32)
[2016-09-28] MEDS ORDERED: SODIUM BICARBONATE FEEDTUBE PRN (10:45)
[2016-09-28] MEDS ORDERED: PANCREAZE DR 10,500 UNIT FEEDTUBE PRN (10:45)
[2016-09-28] MEDS ORDERED: SIMPLE SYRUP FEEDTUBE PRN ×2 (10:45)
--- NOTE | 2016-09-28 11:05 | Progress Note ---
Assessment and Plan - Patient Problems (1) Acute hypoxemic respiratory failure Current Visit: Yes Status: Acute Plan to address problem: Stable neurological status . Will asess swallowing abilty and start on oral intake if swallowing eval is normal (2) CVA (cerebral vascular accident) Current Visit: Yes Status: Acute Qualifiers: CVA mechanism: C Precerebral and cerebral artery: P Laterality of affected vessel: L Plan to address problem: Stable neurological status (3) Status epilepticus Current Visit: Yes Status: Acute Plan to address problem: Stable on current anti-Seizure meds (4) Acute right-sided weakness Current Visit: No Status: Acute Plan to address problem: Status post previous CVA Subjective Date of service: 09/28/16 Principal diagnosis: acute hypoxemic respiratory failure, status epilepticus Interval history: Covering Dr. Dr. Tyson Patient seen and examined, more alert and responding appropriately, complaining of shortness of breath but no chest pain, no fever reported cough poorly productive. Tolerating tube feeding. Objective - Exam Narrative Exam: GENERAL: Patient not in acute distress resting comfortably, pupils equal and reactive to light bilaterally HEENT: [Patient is not pale, not jaundiced, not cyanosed.] NECK: [No JVD, no thyroid enlargement and no lymphadenopathy.] CHEST/LUNGS: Good air exchange bilaterally, no wheezes no rales, no dullness to percussion, symmetrical air exchange bilaterally HEART/CARDIOVASCULAR: [Regular rate and rhythm, S1 and S2 only, no murmur.] ABDOMEN: [Abdomen is soft, nondistended, no guarding, no rebound tenderness, no masses palpable per abdomen, active bowel sounds.] SKIN: [Warm and dry, no rash.] NEURO: [Awake, alert, EXTREMITIES: [No pedal edema, good peripheral pulses, no finger or toe clubbing. ] - Constitutional Vitals: Vital Signs - 12hr 09/27/16 09/28/16 09/28/16 23:23 00:19 02:00 Temperature 99.0 F Pulse Rate 117 H Pulse Rate [ 104 H Bilatetal bases ] Pulse Rate [ 126 H Right Radial] Respiratory 16 18 Rate Respiratory 22 Rate [Bilatetal bases] Blood Pressure 117/60 [Right Arm] O2 Sat by Pulse 99 100 Oximetry 09/28/16 09/28/16 09/28/16 02:20 05:00 05:09 Temperature 99.4 F Pulse Rate Pulse Rate [ 84 Bilatetal bases ] Pulse Rate [ 114 H Right Radial] Respiratory 16 Rate Respiratory 22 Rate [Bilatetal bases] Blood Pressure 126/58 [Right Arm] O2 Sat by Pulse 98 Oximetry 09/28/16 09/28/16 05:27 07:35 Temperature 99.5 F Pulse Rate 115 H Pulse Rate [ Bilatetal bases ] Pulse Rate [ 120 H Right Radial] Respiratory 16 Rate Respiratory Rate [Bilatetal bases] Blood Pressure 93/51 [Right Arm] O2 Sat by Pulse 98 Oximetry - Labs CBC & Chem 7: 09/28/16 03:54 09/28/16 03:54 Labs: Abnormal lab results 09/27/16 09/27/16 09/27/16 Range/Units 08:48 09:21 13:51 RBC (3.65-5.03) M/mm3 Hgb (10.1-14.3) gm/dl Hct (30.3-42.9) % MCH (28-32) pg RDW (13.2-15.2) % [place] % (Auto) (0.0-7.3) % [place] # (0.0-0.8) K/mm3 Glucose (65-100) mg/dL POC Glucose 144 H 168 H (70-105) ALT (7-56) units/L Total Creatine Kinase (30-135) units/L Total Protein (6.3-8.2) g/dL Albumin (3.9-5) g/dL Valproic Acid 47.0 L (50-100) ug/mL 09/27/16 09/27/16 09/28/16 Range/Units 17:47 21:21 03:54 RBC 3.45 L (3.65-5.03) M/mm3 Hgb 9.4 L (10.1-14.3) gm/dl Hct 29.7 L (30.3-42.9) % MCH 27 L (28-32) pg RDW 20.8 H (13.2-15.2) % [place] % (Auto) 12.1 H (0.0-7.3) % [place] # 0.9 H (0.0-0.8) K/mm3 Glucose (65-100) mg/dL POC Glucose 253 H 162 H (70-105) ALT (7-56) units/L Total Creatine Kinase (30-135) units/L Total Protein (6.3-8.2) g/dL Albumin (3.9-5) g/dL Valproic Acid (50-100) ug/mL 09/28/16 09/28/16 Range/Units 03:54 08:59 RBC (3.65-5.03) M/mm3 Hgb (10.1-14.3) gm/dl Hct (30.3-42.9) % MCH (28-32) pg RDW (13.2-15.2) % [place] % (Auto) (0.0-7.3) % [place] # (0.0-0.8) K/mm3 Glucose 284 H (65-100) mg/dL POC Glucose (70-105) ALT < 5 L (7-56) units/L Total Creatine Kinase 136 H (30-135) units/L Total Protein 5.7 L (6.3-8.2) g/dL Albumin 3.1 L (3.9-5) g/dL Valproic Acid (50-100) ug/mL
--- NOTE | 2016-09-28 12:57 | Progress Note ---
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 : D Laterality: L Chronic kidney disease stage: C (5) Oropharyngeal dysphagia Current Visit: Yes Status: Acute (6) Discharge planning issues Current Visit: Yes Status: Acute Subjective Date of service: 09/28/16 Principal diagnosis: acute hypoxemic respiratory failure, status epilepticus Interval history: Seen and examined at bedside; 24 hour events reviewed; nursing and respiratory care staff consulted; no adverse overnight events reported to me; Objective Vital Signs - 12hr 09/28/16 09/28/16 09/28/16 02:00 02:20 05:00 Temperature 99.4 F Pulse Rate Pulse Rate [ 104 H 84 Bilatetal bases ] Pulse Rate [ 114 H Right Radial] Respiratory 16 Rate Respiratory 22 22 Rate [Bilatetal bases] Blood Pressure 126/58 [Right Arm] O2 Sat by Pulse Oximetry 09/28/16 09/28/16 09/28/16 05:09 05:27 07:35 Temperature 99.5 F Pulse Rate 115 H Pulse Rate [ Bilatetal bases ] Pulse Rate [ 120 H Right Radial] Respiratory 16 Rate Respiratory Rate [Bilatetal bases] Blood Pressure 93/51 [Right Arm] O2 Sat by Pulse 98 98 Oximetry Constitutional: no acute distress, other (? dementia element) Eyes: non-icteric ENT: oropharynx moist Neck: supple, no lymphadenopathy Effort: normal Ascultation: Bilateral: diminished breath sounds, rhonchi (scant in bases) Cardiovascular: regular rate and rhythm Gastrointestinal: normoactive bowel sounds, soft, non-tender, non-distended Integumentary: normal Extremities: no cyanosis, no edema, pulses normal, no ischemia or petechiae Neurologic: non-focal exam, pupils equal and round, other (dementia element) Psychiatric: other (sedated) CBC and BMP: 09/28/16 03:54 09/28/16 03:54 ABG, PT/INR, D-dimer: ABG POC ABG pH 7.415 (7.35-7.45) 09/26/16 15:05 POC ABG pCO2 44.6 (35-45) 09/26/16 15:05 POC ABG pO2 155 (80-105) H 09/26/16 15:05 POC ABG HCO3 28.6 09/26/16 15:05 POC ABG Total CO2 30 09/26/16 15:05 POC ABG O2 Sat 99 09/26/16 15:05 PT/INR, D-dimer PT 13.2 Sec. (12.2-14.9) 09/25/16 08:35 INR 1.01 (0.87-1.13) 09/25/16 08:35 Abnormal lab findings: Abnormal Labs 09/25/16 09/25/16 09/25/16 14:57 21:39 21:59 WBC RBC Hgb Hct MCH RDW [place] % (Auto) [place] # POC ABG pH POC ABG pO2 Creatinine Glucose POC Glucose Hemoglobin A1c 11.1 H ALT Total Creatine Kinase C-Reactive Protein 2.40 H Total Protein Albumin Triglycerides HDL Cholesterol Valproic Acid < 2.8 L 09/25/16 09/26/16 09/26/16 22:46 03:27 03:27 WBC RBC 3.21 L Hgb 8.9 L Hct 29.4 L MCH RDW 20.0 H [place] % (Auto) 14.5 H [place] # 1.2 H POC ABG pH POC ABG pO2 Creatinine 1.9 H Glucose 284 H POC Glucose 407 H Hemoglobin A1c ALT Total Creatine Kinase C-Reactive Protein Total Protein Albumin 3.0 L Triglycerides 163 H HDL Cholesterol 39 L Valproic Acid 09/26/16 09/26/16 09/26/16 05:34 06:43 09:51 WBC RBC Hgb Hct MCH RDW [place] % (Auto) [place] # POC ABG pH 7.465 H POC ABG pO2 168 H Creatinine Glucose POC Glucose 307 H 256 H Hemoglobin A1c ALT Total Creatine Kinase C-Reactive Protein Total Protein Albumin Triglycerides HDL Cholesterol Valproic Acid 09/26/16 09/26/16 09/26/16 14:41 15:05 17:37 WBC RBC Hgb Hct MCH RDW [place] % (Auto) [place] # POC ABG pH POC ABG pO2 155 H Creatinine Glucose POC Glucose 121 H 137 H Hemoglobin A1c ALT Total Creatine Kinase C-Reactive Protein Total Protein Albumin Triglycerides HDL Cholesterol Valproic Acid 09/26/16 09/27/16 09/27/16 22:08 02:11 03:20 WBC 12.6 H RBC Hgb Hct MCH 27 L RDW 20.2 H [place] % (Auto) 12.8 H [place] # 1.6 H POC ABG pH POC ABG pO2 Creatinine Glucose POC Glucose 211 H 114 H Hemoglobin A1c ALT Total Creatine Kinase C-Reactive Protein Total Protein Albumin Triglycerides HDL Cholesterol Valproic Acid 09/27/16 09/27/16 09/27/16 03:20 05:40 08:48 WBC RBC Hgb Hct MCH RDW [place] % (Auto) [place] # POC ABG pH POC ABG pO2 Creatinine 1.4 H Glucose 135 H POC Glucose 218 H Hemoglobin A1c ALT < 5 L Total Creatine Kinase C-Reactive Protein Total Protein 6.2 L Albumin 3.0 L Triglycerides HDL Cholesterol Valproic Acid 47.0 L 09/27/16 09/27/16 09/27/16 09:21 13:51 17:47 WBC RBC Hgb Hct MCH RDW [place] % (Auto) [place] # POC ABG pH POC ABG pO2 Creatinine Glucose POC Glucose 144 H 168 H 253 H Hemoglobin A1c ALT Total Creatine Kinase C-Reactive Protein Total Protein Albumin Triglycerides HDL Cholesterol Valproic Acid 09/27/16 09/28/16 09/28/16 21:21 03:54 03:54 WBC RBC 3.45 L Hgb 9.4 L Hct 29.7 L MCH 27 L RDW 20.8 H [place] % (Auto) 12.1 H [place] # 0.9 H POC ABG pH POC ABG pO2 Creatinine Glucose 284 H POC Glucose 162 H Hemoglobin A1c ALT < 5 L Total Creatine Kinase C-Reactive Protein Total Protein 5.7 L Albumin 3.1 L Triglycerides HDL Cholesterol Valproic Acid 09/28/16 08:59 WBC RBC Hgb Hct MCH RDW [place] % (Auto) [place] # POC ABG pH POC ABG pO2 Creatinine Glucose POC Glucose Hemoglobin A1c ALT Total Creatine Kinase 136 H C-Reactive Protein Total Protein Albumin Triglycerides HDL Cholesterol Valproic Acid
[2016-09-29] MEDS: NOVOLOG SUB-Q SCH ×6 (01:54→23:17)
[2016-09-29] MEDS: DUONEB 0.5 MG-3 MG/3 ML SOLN IH SCH ×4 (02:10→20:17)
[2016-09-29] MEDS: NEURONTIN PO SCH ×3 (05:26→22:13)
[2016-09-29 06:28] LABS: Basophils % (Auto) 0.3 % (0.0-1.8); Eosinophils % (Auto) 2.9 % (0.0-4.3); Hematocrit 27.7 % (30.3-42.9); Hemoglobin 8.7 gm/dl (10.1-14.3); Mean Corpuscular HGB Conc 32 % (30-34); Mean Corpuscular Hemoglobin 27 pg (28-32); Mean Corpuscular Volume 87 fl (79-97); Platelet Count 291 K/mm3 (140-440); White Blood Count 6.7 K/mm3 (4.5-11.0)
[2016-09-29 06:52] LABS: Red Cell Distribution Width 20.4 % (13.2-15.2)
[2016-09-29 07:00] LABS: Albumin/Globulin Ratio 1.1 %; Alkaline Phosphatase 88 units/L (35-129); Anion Gap 15 mmol/L; BUN/Creatinine Ratio 11.53; Blood Urea Nitrogen 15 mg/dL (7-17); Calcium 9.1 mg/dL (8.4-10.2); Carbon Dioxide 28 mmol/L (22-30); Chloride 103.5 mmol/L (98-107); Glucose 168 mg/dL (65-100); Potassium 4.4 mmol/L (3.6-5.0); Sodium 142 mmol/L (137-145); Total Protein 5.7 g/dL (6.3-8.2)
[2016-09-29 07:02] LABS: Alanine Aminotransferase < 5 units/L (7-56)
[2016-09-29] MEDS: LOVENOX SUB-Q SCH (09:56)
--- NOTE | 2016-09-29 20:31 | Progress Note ---
Assessment and Plan # Acute hypoxemic respiratory failure. Secondary to status epilepticus. Resolved. Off the vent and on oxygen by nasal canula # Statuts epilepticus Pt had first seizure in 2015 and had had multiple seizures since then. On Valprioc acid and Gabatentin. Intabated and sedated on arrival to the Ed. No more seizure since then. Neurology consult obtained. On propofol and AED, prn Ativan # H/o Multiple CVA and right hemiparesis. Possible source of seiozure. Has Left ICA stenosis from prior evalution. Will continue with ASA, Statin. Further evaluation with MRA/MRI when more stable # Acute renal Failure. Likely from vasomotor nephropathy. improving Cr 1.3 Trend BUN and creatinine # Diabetes mellitus. A1c 11.1%. SSI. # Hypertension: Controlled. # Hyperlipdemia: On statins # DVT PPx andGI PPx with Lovenox and protonix # Discussed with pt's daughter. Subjective Date of service: 09/29/16 Principal diagnosis: acute hypoxemic respiratory failure, status epilepticus Interval history: Informed by the ER physician as well as family members to see a patient well- known to me who has a history of multiple cerebrovascular accident with residual right hemiparesis, a walker and a cane was found unresponsive with clonic tonic seizure started on the right side and became generalized. EMS was called in and patient was found to be unresponsive with severely elevated systolic blood pressure 200s. Placed on nonrebreather and brought to the emergency department. Was intubated, sedated and connected to mechanical ventilation. Patient had a seizure in 2005 after an episode of cerebrovascular accident. Has been on antihyperlipidemic drugs since then. Compliant with medication prior to onset of his current symptoms. Remins intubated. Attempts to open eyes at voice command Objective - Constitutional Vitals: Vital Signs - 12hr 09/29/16 09/29/16 09/29/16 09:02 09:22 09:26 Temperature Pulse Rate [ 107 H 110 H Bilateral Throughout] Pulse Rate [ Left Radial] Pulse Rate [ Right Radial] Respiratory Rate Respiratory 22 18 Rate [Bilateral Throughout] Blood Pressure [Right Arm] O2 Sat by Pulse 99 Oximetry 09/29/16 09/29/16 09/29/16 10:00 14:51 16:00 Temperature 98.7 F 97.6 F Pulse Rate [ 108 H Bilateral Throughout] Pulse Rate [ 86 Left Radial] Pulse Rate [ 110 H Right Radial] Respiratory 18 100 H Rate Respiratory 16 Rate [Bilateral Throughout] Blood Pressure 124/73 118/60 [Right Arm] O2 Sat by Pulse 100 Oximetry General appearance: Present: no acute distress, well-nourished - EENT Eyes: PERRL, EOM intact ENT: hearing intact, clear oral mucosa Ears: bilateral: normal - Neck Neck: supple, normal ROM - Respiratory Respiratory effort: normal Respiratory: bilateral: CTA - Cardiovascular Rhythm: regular Heart Sounds: Present: S1 & S2. Absent: gallop, rub Extremities: pulses intact, No edema, normal color, Full ROM - Gastrointestinal General gastrointestinal: Present: soft, non-tender, non-distended, normal bowel sounds - Genitourinary Female genitourinary: normal - Integumentary Integumentary: clear, warm, dry - Musculoskeletal Musculoskeletal: 1, strength equal bilaterally - Neurologic Neurologic: moves all extremities - Psychiatric Psychiatric: memory intact, appropriate mood/affect, intact judgment & insight - Labs CBC & Chem 7: 09/29/16 04:47 09/29/16 04:47 Labs: Abnormal lab results 09/28/16 09/28/16 09/28/16 Range/Units 03:09 05:51 12:17 RBC (3.65-5.03) M/mm3 Hgb (10.1-14.3) gm/dl Hct (30.3-42.9) % MCH (28-32) pg RDW (13.2-15.2) % [place] % (Auto) (0.0-7.3) % [place] # (0.0-0.8) K/mm3 Creatinine (0.7-1.2) mg/dL Glucose (65-100) mg/dL POC Glucose 287 H 307 H 197 H (70-105) ALT (7-56) units/L Total Creatine Kinase (30-135) units/L Total Protein (6.3-8.2) g/dL Albumin (3.9-5) g/dL 09/28/16 09/28/16 09/29/16 Range/Units 16:32 21:45 01:49 RBC (3.65-5.03) M/mm3 Hgb (10.1-14.3) gm/dl Hct (30.3-42.9) % MCH (28-32) pg RDW (13.2-15.2) % [place] % (Auto) (0.0-7.3) % [place] # (0.0-0.8) K/mm3 Creatinine (0.7-1.2) mg/dL Glucose (65-100) mg/dL POC Glucose 288 H 284 H 261 H (70-105) ALT (7-56) units/L Total Creatine Kinase (30-135) units/L Total Protein (6.3-8.2) g/dL Albumin (3.9-5) g/dL 09/29/16 09/29/16 09/29/16 Range/Units 04:47 04:47 05:12 RBC 3.20 L (3.65-5.03) M/mm3 Hgb 8.7 L (10.1-14.3) gm/dl Hct 27.7 L (30.3-42.9) % MCH 27 L (28-32) pg RDW 20.4 H (13.2-15.2) % [place] % (Auto) 13.8 H (0.0-7.3) % [place] # 0.9 H (0.0-0.8) K/mm3 Creatinine 1.3 H (0.7-1.2) mg/dL Glucose 168 H (65-100) mg/dL POC Glucose 205 H (70-105) ALT < 5 L (7-56) units/L Total Creatine Kinase (30-135) units/L Total Protein 5.7 L (6.3-8.2) g/dL Albumin 3.0 L (3.9-5) g/dL 09/29/16 09/29/16 09/29/16 Range/Units 07:13 07:14 11:59 RBC (3.65-5.03) M/mm3 Hgb (10.1-14.3) gm/dl Hct (30.3-42.9) % MCH (28-32) pg RDW (13.2-15.2) % [place] % (Auto) (0.0-7.3) % [place] # (0.0-0.8) K/mm3 Creatinine (0.7-1.2) mg/dL Glucose (65-100) mg/dL POC Glucose 212 H 248 H (70-105) ALT (7-56) units/L Total Creatine Kinase 220 H (30-135) units/L Total Protein (6.3-8.2) g/dL Albumin (3.9-5) g/dL
[2016-09-29] MEDS: HALDOL PO SCH (22:09)
[2016-09-29] MEDS: BENADRYL PO SCH (22:10)
--- NOTE | 2016-09-29 23:08 | Progress Note ---
Assessment and Plan Patient resting on CPAP, confused.No acute respiratory distress. - Patient Problems (1) Acute hypoxemic respiratory failure Current Visit: Yes Status: Acute Plan to address problem: Patient intubated and extubated. Presently on BIPAP 10/5, rate 20, FIO2 30%. Tolerating alright. O2 satuaration 100%. Albuterol/atrovent aerosol treatments q 6 hours. Continue S/C Lovenox. (2) CVA (cerebral vascular accident) Current Visit: Yes Status: Acute Qualifiers: CVA mechanism: C Precerebral and cerebral artery: P Laterality of affected vessel: L Plan to address problem: Management as per neurology. (3) Status epilepticus Current Visit: Yes Status: Acute Plan to address problem: Management as per neurology. (4) Acute right-sided weakness Current Visit: No Status: Acute Plan to address problem: Management as per neurology. Subjective Date of service: 09/29/16 Principal diagnosis: acute hypoxemic respiratory failure, status epilepticus Interval history: Patient resting on CPAP, confused.No acute respiratory distress. Objective Vital Signs - 12hr 09/29/16 09/29/16 09/29/16 14:51 16:00 21:12 Temperature 97.6 F 98.8 F Pulse Rate Pulse Rate [ 123 H Apical] Pulse Rate [ 108 H Bilateral Throughout] Pulse Rate [ 86 Left Radial] Respiratory 100 H 20 Rate Respiratory 16 Rate [Bilateral Throughout] Blood Pressure 118/60 133/64 [Right Arm] O2 Sat by Pulse 100 Oximetry 09/29/16 22:26 Temperature Pulse Rate 127 H Pulse Rate [ Apical] Pulse Rate [ Bilateral Throughout] Pulse Rate [ Left Radial] Respiratory 17 Rate Respiratory Rate [Bilateral Throughout] Blood Pressure [Right Arm] O2 Sat by Pulse 100 Oximetry Constitutional: no acute distress, other (? dementia element) Eyes: non-icteric ENT: oropharynx moist Neck: supple, no lymphadenopathy Effort: normal Ascultation: Bilateral: diminished breath sounds, rhonchi (scant in bases) Cardiovascular: regular rate and rhythm Gastrointestinal: normoactive bowel sounds, soft, non-tender, non-distended Integumentary: normal Extremities: no cyanosis, no edema, pulses normal, no ischemia or petechiae Neurologic: non-focal exam, pupils equal and round, other (dementia element) Psychiatric: other (sedated) CBC and BMP: 09/29/16 04:47 09/29/16 04:47 ABG, PT/INR, D-dimer: ABG POC ABG pH 7.415 (7.35-7.45) 09/26/16 15:05 POC ABG pCO2 44.6 (35-45) 09/26/16 15:05 POC ABG pO2 155 (80-105) H 09/26/16 15:05 POC ABG HCO3 28.6 09/26/16 15:05 POC ABG Total CO2 30 09/26/16 15:05 POC ABG O2 Sat 99 09/26/16 15:05 PT/INR, D-dimer PT 13.2 Sec. (12.2-14.9) 09/25/16 08:35 INR 1.01 (0.87-1.13) 09/25/16 08:35 Abnormal lab findings: Abnormal Labs 09/25/16 09/25/16 09/25/16 14:57 21:39 21:59 WBC RBC Hgb Hct MCH RDW [place] % (Auto) [place] # POC ABG pH POC ABG pO2 Creatinine Glucose POC Glucose Hemoglobin A1c 11.1 H ALT Total Creatine Kinase C-Reactive Protein 2.40 H Total Protein Albumin Triglycerides HDL Cholesterol Valproic Acid < 2.8 L 09/25/16 09/26/16 09/26/16 22:46 03:27 03:27 WBC RBC 3.21 L Hgb 8.9 L Hct 29.4 L MCH RDW 20.0 H [place] % (Auto) 14.5 H [place] # 1.2 H POC ABG pH POC ABG pO2 Creatinine 1.9 H Glucose 284 H POC Glucose 407 H Hemoglobin A1c ALT Total Creatine Kinase C-Reactive Protein Total Protein Albumin 3.0 L Triglycerides 163 H HDL Cholesterol 39 L Valproic Acid 09/26/16 09/26/16 09/26/16 05:34 06:43 09:51 WBC RBC Hgb Hct MCH RDW [place] % (Auto) [place] # POC ABG pH 7.465 H POC ABG pO2 168 H Creatinine Glucose POC Glucose 307 H 256 H Hemoglobin A1c ALT Total Creatine Kinase C-Reactive Protein Total Protein Albumin Triglycerides HDL Cholesterol Valproic Acid 09/26/16 09/26/16 09/26/16 14:41 15:05 17:37 WBC RBC Hgb Hct MCH RDW [place] % (Auto) [place] # POC ABG pH POC ABG pO2 155 H Creatinine Glucose POC Glucose 121 H 137 H Hemoglobin A1c ALT Total Creatine Kinase C-Reactive Protein Total Protein Albumin Triglycerides HDL Cholesterol Valproic Acid 09/26/16 09/27/16 09/27/16 22:08 02:11 03:20 WBC 12.6 H RBC Hgb Hct MCH 27 L RDW 20.2 H [place] % (Auto) 12.8 H [place] # 1.6 H POC ABG pH POC ABG pO2 Creatinine Glucose POC Glucose 211 H 114 H Hemoglobin A1c ALT Total Creatine Kinase C-Reactive Protein Total Protein Albumin Triglycerides HDL Cholesterol Valproic Acid 09/27/16 09/27/16 09/27/16 03:20 05:40 08:48 WBC RBC Hgb Hct MCH RDW [place] % (Auto) [place] # POC ABG pH POC ABG pO2 Creatinine 1.4 H Glucose 135 H POC Glucose 218 H Hemoglobin A1c ALT < 5 L Total Creatine Kinase C-Reactive Protein Total Protein 6.2 L Albumin 3.0 L Triglycerides HDL Cholesterol Valproic Acid 47.0 L 09/27/16 09/27/16 09/27/16 09:21 13:51 17:47 WBC RBC Hgb Hct MCH RDW [place] % (Auto) [place] # POC ABG pH POC ABG pO2 Creatinine Glucose POC Glucose 144 H 168 H 253 H Hemoglobin A1c ALT Total Creatine Kinase C-Reactive Protein Total Protein Albumin Triglycerides HDL Cholesterol Valproic Acid 09/27/16 09/28/16 09/28/16 21:21 03:09 03:54 WBC RBC 3.45 L Hgb 9.4 L Hct 29.7 L MCH 27 L RDW 20.8 H [place] % (Auto) 12.1 H [place] # 0.9 H POC ABG pH POC ABG pO2 Creatinine Glucose POC Glucose 162 H 287 H Hemoglobin A1c ALT Total Creatine Kinase C-Reactive Protein Total Protein Albumin Triglycerides HDL Cholesterol Valproic Acid 09/28/16 09/28/16 09/28/16 03:54 05:51 08:18 WBC RBC Hgb Hct MCH RDW [place] % (Auto) [place] # POC ABG pH POC ABG pO2 Creatinine Glucose 284 H POC Glucose 307 H 190 H Hemoglobin A1c ALT < 5 L Total Creatine Kinase C-Reactive Protein Total Protein 5.7 L Albumin 3.1 L Triglycerides HDL Cholesterol Valproic Acid 09/28/16 09/28/16 09/28/16 08:59 12:17 16:32 WBC RBC Hgb Hct MCH RDW [place] % (Auto) [place] # POC ABG pH POC ABG pO2 Creatinine Glucose POC Glucose 197 H 288 H Hemoglobin A1c ALT Total Creatine Kinase 136 H C-Reactive Protein Total Protein Albumin Triglycerides HDL Cholesterol Valproic Acid 09/28/16 09/29/16 09/29/16 21:45 01:49 04:47 WBC RBC 3.20 L Hgb 8.7 L Hct 27.7 L MCH 27 L RDW 20.4 H [place] % (Auto) 13.8 H [place] # 0.9 H POC ABG pH POC ABG pO2 Creatinine Glucose POC Glucose 284 H 261 H Hemoglobin A1c ALT Total Creatine Kinase C-Reactive Protein Total Protein Albumin Triglycerides HDL Cholesterol Valproic Acid 09/29/16 09/29/16 09/29/16 04:47 05:12 07:13 WBC RBC Hgb Hct MCH RDW [place] % (Auto) [place] # POC ABG pH POC ABG pO2 Creatinine 1.3 H Glucose 168 H POC Glucose 205 H Hemoglobin A1c ALT < 5 L Total Creatine Kinase 220 H C-Reactive Protein Total Protein 5.7 L Albumin 3.0 L Triglycerides HDL Cholesterol Valproic Acid 09/29/16 09/29/16 09/29/16 07:14 11:59 16:23 WBC RBC Hgb Hct MCH RDW [place] % (Auto) [place] # POC ABG pH POC ABG pO2 Creatinine Glucose POC Glucose 212 H 248 H 317 H Hemoglobin A1c ALT Total Creatine Kinase C-Reactive Protein Total Protein Albumin Triglycerides HDL Cholesterol Valproic Acid 09/29/16 21:52 WBC RBC Hgb Hct MCH RDW [place] % (Auto) [place] # POC ABG pH POC ABG pO2 Creatinine Glucose POC Glucose 436 H Hemoglobin A1c ALT Total Creatine Kinase C-Reactive Protein Total Protein Albumin Triglycerides HDL Cholesterol Valproic Acid
[2016-09-30] MEDS: TYLENOL PO PRN (00:26)
[2016-09-30] MEDS: DUONEB 0.5 MG-3 MG/3 ML SOLN IH SCH ×5 (03:19→22:53)
[2016-09-30] MEDS: NOVOLOG SUB-Q SCH ×6 (03:20→23:03)
[2016-09-30] MEDS: NEURONTIN PO SCH ×3 (06:36→23:13)
[2016-09-30] MEDS: LOVENOX SUB-Q SCH (09:45)
[2016-09-30] MEDS: HALDOL PO SCH ×2 (09:48→23:01)
[2016-09-30] MEDS: BENADRYL PO SCH ×2 (09:48→23:01)
[2016-09-30 10:08] LABS: ISTAT Base Excess 3; ISTAT DEVICE 0; ISTAT HCO3 27.7; ISTAT PCO2 45.4 (35-45); ISTAT PH 7.393 (7.35-7.45); ISTAT PO2 55 (80-105); ISTAT SO2 87; ISTAT TCO2 29
--- NOTE | 2016-09-30 19:03 | Progress Note ---
Assessment and Plan Patient alert, awake and resting on 2 litres O2.No acute respiratory distress.O2 satuaration 99% on 2 litres O2. Patient ABGs on room air PH 7.39, , PCO2 45 , PO2 55 HCO3 28 O2 satuaration 87 % . Patient is candidate for home O2. Recommend O2 2 litres via nasal canula. - Patient Problems (1) Acute hypoxemic respiratory failure Current Visit: Yes Status: Acute Plan to address problem: Patient intubated and extubated. Patient is on BIPAP 10/5, rate 20, FIO2 30%. Albuterol/atrovent aerosol treatments q 6 hours. Continue S/C Lovenox. (2) CVA (cerebral vascular accident) Current Visit: Yes Status: Acute Qualifiers: CVA mechanism: C Precerebral and cerebral artery: P Laterality of affected vessel: L Plan to address problem: Management as per neurology. (3) Status epilepticus Current Visit: Yes Status: Acute Plan to address problem: Management as per neurology. (4) Acute right-sided weakness Current Visit: No Status: Acute Plan to address problem: Management as per neurology. Subjective Date of service: 09/30/16 Principal diagnosis: acute hypoxemic respiratory failure, status epilepticus Interval history: Patient alert, awake and resting on 2 litres O2.No acute respiratory distress.O2 satuaration 99% on 2 litres O2. Patient ABGs on room air PH 7.39, , PCO2 45 , PO2 55 HCO3 28 O2 satuaration 87 % . Patient is candidate for home O2. Recommend O2 2 litres via nasal canula. Objective Vital Signs - 12hr 09/30/16 09/30/16 09/30/16 08:20 09:04 09:14 Temperature 98.9 F Pulse Rate Pulse Rate [ 100 H Apical] Pulse Rate [ 107 H 110 H Bilateral Throughout] Respiratory 20 Rate Respiratory 20 20 Rate [Bilateral Throughout] Blood Pressure 138/66 [Right Arm] O2 Sat by Pulse 96 100 Oximetry 09/30/16 09/30/16 09/30/16 10:00 12:47 14:50 Temperature 99.4 F Pulse Rate 115 H Pulse Rate [ 104 H Apical] Pulse Rate [ 100 H Bilateral Throughout] Respiratory 20 20 Rate Respiratory 20 Rate [Bilateral Throughout] Blood Pressure 119/57 [Right Arm] O2 Sat by Pulse 100 Oximetry 09/30/16 09/30/16 14:58 16:37 Temperature 99.7 F H Pulse Rate Pulse Rate [ 122 H Apical] Pulse Rate [ 108 H Bilateral Throughout] Respiratory 20 Rate Respiratory 20 Rate [Bilateral Throughout] Blood Pressure 117/56 [Right Arm] O2 Sat by Pulse 99 Oximetry Constitutional: no acute distress, other (? dementia element) Eyes: non-icteric ENT: oropharynx moist Neck: supple, no lymphadenopathy Effort: normal Ascultation: Bilateral: diminished breath sounds, rhonchi (scant in bases) Cardiovascular: regular rate and rhythm Gastrointestinal: normoactive bowel sounds, soft, non-tender, non-distended Integumentary: normal Extremities: no cyanosis, no edema, pulses normal, no ischemia or petechiae Neurologic: pupils equal and round, other (right hemiplegia.) Psychiatric: other (sedated) CBC and BMP: 09/29/16 04:47 09/29/16 04:47 ABG, PT/INR, D-dimer: ABG POC ABG pH 7.393 (7.35-7.45) 09/30/16 09:57 POC ABG pCO2 45.4 (35-45) H 09/30/16 09:57 POC ABG pO2 55 (80-105) L 09/30/16 09:57 POC ABG HCO3 27.7 09/30/16 09:57 POC ABG Total CO2 29 09/30/16 09:57 POC ABG O2 Sat 87 09/30/16 09:57 PT/INR, D-dimer PT 13.2 Sec. (12.2-14.9) 09/25/16 08:35 INR 1.01 (0.87-1.13) 09/25/16 08:35 Abnormal lab findings: Abnormal Labs 09/25/16 09/25/16 09/25/16 14:57 21:39 21:59 WBC RBC Hgb Hct MCH RDW Meade % (Auto) Meade # POC ABG pH POC ABG pCO2 POC ABG pO2 Creatinine Glucose POC Glucose Hemoglobin A1c 11.1 H ALT Total Creatine Kinase C-Reactive Protein 2.40 H Total Protein Albumin Triglycerides HDL Cholesterol Valproic Acid < 2.8 L 09/25/16 09/26/16 09/26/16 22:46 03:27 03:27 WBC RBC 3.21 L Hgb 8.9 L Hct 29.4 L MCH RDW 20.0 H Meade % (Auto) 14.5 H Meade # 1.2 H POC ABG pH POC ABG pCO2 POC ABG pO2 Creatinine 1.9 H Glucose 284 H POC Glucose 407 H Hemoglobin A1c ALT Total Creatine Kinase C-Reactive Protein Total Protein Albumin 3.0 L Triglycerides 163 H HDL Cholesterol 39 L Valproic Acid 09/26/16 09/26/16 09/26/16 05:34 06:43 09:51 WBC RBC Hgb Hct MCH RDW Meade % (Auto) Meade # POC ABG pH 7.465 H POC ABG pCO2 POC ABG pO2 168 H Creatinine Glucose POC Glucose 307 H 256 H Hemoglobin A1c ALT Total Creatine Kinase C-Reactive Protein Total Protein Albumin Triglycerides HDL Cholesterol Valproic Acid 09/26/16 09/26/16 09/26/16 14:41 15:05 17:37 WBC RBC Hgb Hct MCH RDW Meade % (Auto) Meade # POC ABG pH POC ABG pCO2 POC ABG pO2 155 H Creatinine Glucose POC Glucose 121 H 137 H Hemoglobin A1c ALT Total Creatine Kinase C-Reactive Protein Total Protein Albumin Triglycerides HDL Cholesterol Valproic Acid 09/26/16 09/27/16 09/27/16 22:08 02:11 03:20 WBC 12.6 H RBC Hgb Hct MCH 27 L RDW 20.2 H Meade % (Auto) 12.8 H Meade # 1.6 H POC ABG pH POC ABG pCO2 POC ABG pO2 Creatinine Glucose POC Glucose 211 H 114 H Hemoglobin A1c ALT Total Creatine Kinase C-Reactive Protein Total Protein Albumin Triglycerides HDL Cholesterol Valproic Acid 09/27/16 09/27/16 09/27/16 03:20 05:40 08:48 WBC RBC Hgb Hct MCH RDW Meade % (Auto) Meade # POC ABG pH POC ABG pCO2 POC ABG pO2 Creatinine 1.4 H Glucose 135 H POC Glucose 218 H Hemoglobin A1c ALT < 5 L Total Creatine Kinase C-Reactive Protein Total Protein 6.2 L Albumin 3.0 L Triglycerides HDL Cholesterol Valproic Acid 47.0 L 09/27/16 09/27/16 09/27/16 09:21 13:51 17:47 WBC RBC Hgb Hct MCH RDW Meade % (Auto) Meade # POC ABG pH POC ABG pCO2 POC ABG pO2 Creatinine Glucose POC Glucose 144 H 168 H 253 H Hemoglobin A1c ALT Total Creatine Kinase C-Reactive Protein Total Protein Albumin Triglycerides HDL Cholesterol Valproic Acid 09/27/16 09/28/16 09/28/16 21:21 03:09 03:54 WBC RBC 3.45 L Hgb 9.4 L Hct 29.7 L MCH 27 L RDW 20.8 H Meade % (Auto) 12.1 H Meade # 0.9 H POC ABG pH POC ABG pCO2 POC ABG pO2 Creatinine Glucose POC Glucose 162 H 287 H Hemoglobin A1c ALT Total Creatine Kinase C-Reactive Protein Total Protein Albumin Triglycerides HDL Cholesterol Valproic Acid 09/28/16 09/28/16 09/28/16 03:54 05:51 08:18 WBC RBC Hgb Hct MCH RDW Meade % (Auto) Meade # POC ABG pH POC ABG pCO2 POC ABG pO2 Creatinine Glucose 284 H POC Glucose 307 H 190 H Hemoglobin A1c ALT < 5 L Total Creatine Kinase C-Reactive Protein Total Protein 5.7 L Albumin 3.1 L Triglycerides HDL Cholesterol Valproic Acid 09/28/16 09/28/16 09/28/16 08:59 12:17 16:32 WBC RBC Hgb Hct MCH RDW Meade % (Auto) Meade # POC ABG pH POC ABG pCO2 POC ABG pO2 Creatinine Glucose POC Glucose 197 H 288 H Hemoglobin A1c ALT Total Creatine Kinase 136 H C-Reactive Protein Total Protein Albumin Triglycerides HDL Cholesterol Valproic Acid 09/28/16 09/29/16 09/29/16 21:45 01:49 04:47 WBC RBC 3.20 L Hgb 8.7 L Hct 27.7 L MCH 27 L RDW 20.4 H Meade % (Auto) 13.8 H Meade # 0.9 H POC ABG pH POC ABG pCO2 POC ABG pO2 Creatinine Glucose POC Glucose 284 H 261 H Hemoglobin A1c ALT Total Creatine Kinase C-Reactive Protein Total Protein Albumin Triglycerides HDL Cholesterol Valproic Acid 09/29/16 09/29/16 09/29/16 04:47 05:12 07:13 WBC RBC Hgb Hct MCH RDW Meade % (Auto) Meade # POC ABG pH POC ABG pCO2 POC ABG pO2 Creatinine 1.3 H Glucose 168 H POC Glucose 205 H Hemoglobin A1c ALT < 5 L Total Creatine Kinase 220 H C-Reactive Protein Total Protein 5.7 L Albumin 3.0 L Triglycerides HDL Cholesterol Valproic Acid 09/29/16 09/29/16 09/29/16 07:14 11:59 16:23 WBC RBC Hgb Hct MCH RDW Meade % (Auto) Meade # POC ABG pH POC ABG pCO2 POC ABG pO2 Creatinine Glucose POC Glucose 212 H 248 H 317 H Hemoglobin A1c ALT Total Creatine Kinase C-Reactive Protein Total Protein Albumin Triglycerides HDL Cholesterol Valproic Acid 09/29/16 09/30/16 09/30/16 21:52 03:01 06:26 WBC RBC Hgb Hct MCH RDW Meade % (Auto) Meade # POC ABG pH POC ABG pCO2 POC ABG pO2 Creatinine Glucose POC Glucose 436 H 324 H 242 H Hemoglobin A1c ALT Total Creatine Kinase C-Reactive Protein Total Protein Albumin Triglycerides HDL Cholesterol Valproic Acid 09/30/16 09/30/16 09:57 11:14 WBC RBC Hgb Hct MCH RDW Meade % (Auto) Meade # POC ABG pH POC ABG pCO2 45.4 H POC ABG pO2 55 L Creatinine Glucose POC Glucose 290 H Hemoglobin A1c ALT Total Creatine Kinase C-Reactive Protein Total Protein Albumin Triglycerides HDL Cholesterol Valproic Acid
--- NOTE | 2016-09-30 21:36 | Discharge Summary ---
Providers - Providers Date of Admission: 09/25/16 10:42 Date of discharge: 09/30/16 Attending physician: CARIN KILGORE 09/27/16 09:52 Speech Therapy Evaluation and Treat [CONS] Stat Reason For Exam: post extubation 09/27/16 16:56 Consult to Dietitian/Nutrition [CONS] Routine Physician Instructions: Assess nutrtn needs, initiate, modify, manage TF Reason For Exam: Reason for Consult: Write/Manage Tube Feeding Reason for Consult: Write/Manage Tube Feeding 09/30/16 15:36 Physical Therapy Evaluation and Treat [CONS] Routine Comment: skilled needs Reason For Exam: eval & treat Primary care physician: DRIVE AWAY DRIVER Hospitalization Reason for admission: Acute respiratory failure, Status epilecticus Condition: Stable Pertinent studies: CT scan of the brain was unremarkable for any acute event MRI MRA of the brain showed decreased flow of the left internal carotid artery and diminished caliber of the right internal carotid artery. No acute events identified in the brain. MRI also showed remote left middle cerebral artery infarction. Procedures: None Hospital course: Patient is a 56-year-old lady who initially had cerebrovascular accident in 2016 with seizure thereafter. Was at home when she suddenly became unresponsive. Had multiple seizure attacks back to back. Brought to the emergency department. Patient was having continuous seizures. Intubated. Was placed on Propfol while admitted to the ICU. Seizure activity gradually resolved. Estimated. Transferred over to the telemetry floor. Continued on anti-epileptic medication at the recommendations of the neurologist was consulted on admission. Patient also had a history of schizophrenia. Therefore has been altered in her mental status. Noncoherent in her speech, a showing bizarre behaviour. Appetite is improved. Patient therefore being transferred over to half-way facility with rehabilitation capability Disposition: DC/TX SNF W [facility] CERT Core Measure Documentation - Palliative Care Palliative Care/ Comfort Measures: Palliative Care/Comfort Measures Exam - Constitutional Vitals: Temp Pulse Resp BP Pulse Ox 99.7 F H 107 H 20 139/68 100 09/30/16 20:57 09/30/16 20:57 09/30/16 20:57 09/30/16 20:57 09/30/16 20:57 General appearance: Present: no acute distress, well-nourished - EENT Eyes: Present: PERRL ENT: hearing intact, clear oral mucosa - Neck Neck: Present: supple, normal ROM - Respiratory Respiratory effort: normal Respiratory: bilateral: diminished - Cardiovascular Heart Sounds: Present: S1 & S2. Absent: rub, click - Extremities Extremities: pulses symmetrical, No edema Peripheral Pulses: within normal limits - Abdominal General gastrointestinal: Present: soft, non-tender, non-distended, normal bowel sounds - Integumentary Integumentary: Present: clear, warm, dry - Musculoskeletal Musculoskeletal: gait normal, strength equal bilaterally - Psychiatric Psychiatric: appropriate mood/affect, intact judgment & insight - Neurologic Neurologic: CNII-XII intact, moves all extremities Plan Activity: fall precautions Weight Bearing Status: Non-Weight Bearing Diet: low cholesterol, low carbohydrate Follow up with: PRIMARY CARE, [Primary Care Provider] - 3-5 Days
--- NOTE | 2016-09-30 23:14 | Progress Note ---
Assessment and Plan # Acute hypoxemic respiratory failure. POa was 55. Secondary to status epilepticus. Resolved. Off the vent and on oxygen by nasal canula #Seizure disorder Pt had first seizure in 2015 and has had multiple seizures since then. On Valprioc acid and Gabatentin. Intabated and sedated on arrival to the Ed. No more seizure since then. Neurology consult obtained. On propofol and AED, prn Ativan # H/o Multiple CVA and right hemiparesis. Possible source of seizure. Has Left ICA stenosis from prior evalution. Will continue with ASA, Statin. Further evaluation with MRA/MRI when more stable # Acute renal Failure. Likely from vasomotor nephropathy. improving Cr 1.3 Trend BUN and creatinine # Diabetes mellitus. A1c 11.1%. SSI. # Hypertension: Controlled. # Hyperlipdemia: On statins # DVT PPx andGI PPx with Lovenox and protonix # Discussed with pt's daughter, Tia. Desires SNF placement Subjective Date of service: 09/30/16 Principal diagnosis: acute hypoxemic respiratory failure, status epilepticus Interval history: Informed by the ER physician as well as family members to see a patient well- known to me who has a history of multiple cerebrovascular accident with residual right hemiparesis, a walker and a cane was found unresponsive with clonic tonic seizure started on the right side and became generalized. EMS was called in and patient was found to be unresponsive with severely elevated systolic blood pressure 200s. Placed on nonrebreather and brought to the emergency department. Was intubated, sedated and connected to mechanical ventilation. Patient had a seizure in 2005 after an episode of cerebrovascular accident. Has been on antiepilectic drugs since then. Compliant with medication prior to onset of his current symptoms. Now extubated and in no respiratory distress. No more seizures. Discussed with the daughter wants patient to be placed in an SNF with rehabilitation Objective - Constitutional Vitals: Vital Signs - 12hr 09/30/16 09/30/16 09/30/16 12:47 14:50 14:58 Temperature 99.4 F Pulse Rate [ 104 H Apical] Pulse Rate [ 100 H 108 H Bilateral Throughout] Pulse Rate [ Bilatetal bases ] Respiratory 20 Rate Respiratory 20 20 Rate [Bilateral Throughout] Respiratory Rate [Bilatetal bases] Blood Pressure 119/57 [Right Arm] O2 Sat by Pulse 100 Oximetry 09/30/16 09/30/16 09/30/16 16:37 20:00 20:57 Temperature 99.7 F H 99.7 F H Pulse Rate [ 122 H 107 H Apical] Pulse Rate [ 92 H Bilateral Throughout] Pulse Rate [ 98 H Bilatetal bases ] Respiratory 20 20 Rate Respiratory 18 Rate [Bilateral Throughout] Respiratory 20 Rate [Bilatetal bases] Blood Pressure 117/56 139/68 [Right Arm] O2 Sat by Pulse 99 100 Oximetry 09/30/16 09/30/16 21:18 21:46 Temperature Pulse Rate [ 105 H Apical] Pulse Rate [ Bilateral Throughout] Pulse Rate [ Bilatetal bases ] Respiratory 20 Rate Respiratory Rate [Bilateral Throughout] Respiratory Rate [Bilatetal bases] Blood Pressure [Right Arm] O2 Sat by Pulse 99 Oximetry General appearance: Present: no acute distress, well-nourished - EENT Eyes: PERRL, EOM intact ENT: hearing intact, clear oral mucosa Ears: bilateral: normal - Neck Neck: supple, normal ROM - Respiratory Respiratory effort: normal Respiratory: bilateral: CTA - Cardiovascular Rhythm: regular Heart Sounds: Present: S1 & S2. Absent: gallop, rub Extremities: pulses intact, No edema, normal color, Full ROM - Gastrointestinal General gastrointestinal: Present: soft, non-tender, non-distended, normal bowel sounds - Genitourinary Female genitourinary: normal - Integumentary Integumentary: clear, warm, dry - Musculoskeletal Musculoskeletal: 1, strength equal bilaterally - Neurologic Neurologic: moves all extremities - Psychiatric Psychiatric: memory intact, appropriate mood/affect, intact judgment & insight - Labs CBC & Chem 7: 09/29/16 04:47 09/29/16 04:47 Labs: Abnormal lab results 09/30/16 09/30/16 09/30/16 Range/Units 03:01 06:26 09:57 POC ABG pCO2 45.4 H (35-45) POC ABG pO2 55 L (80-105) POC Glucose 324 H 242 H (70-105) 09/30/16 09/30/16 09/30/16 Range/Units 11:14 17:13 21:49 POC ABG pCO2 (35-45) POC ABG pO2 (80-105) POC Glucose 290 H 420 H 383 H (70-105)
[2016-10-01] MEDS: DUONEB 0.5 MG-3 MG/3 ML SOLN IH SCH ×3 (02:40→16:53)
[2016-10-01] MEDS: NOVOLOG SUB-Q SCH ×5 (05:08→17:57)
[2016-10-01] MEDS: TYLENOL PO PRN (05:09)
[2016-10-01] MEDS: NEURONTIN PO SCH ×2 (05:20→14:59)
[2016-10-01] MEDS: BENADRYL PO SCH (09:53)
[2016-10-01] MEDS: LOVENOX SUB-Q SCH (09:53)
[2016-10-01] MEDS: HALDOL PO SCH (09:53)
--- NOTE | 2016-10-01 10:55 | Discharge Summary ---
Providers - Providers Date of Admission: 09/25/16 10:42 Date of discharge: 10/01/16 Attending physician: CARIN KILGORE 09/27/16 09:52 Speech Therapy Evaluation and Treat [CONS] Stat Reason For Exam: post extubation 09/27/16 16:56 Consult to Dietitian/Nutrition [CONS] Routine Physician Instructions: Assess nutrtn needs, initiate, modify, manage TF Reason For Exam: Reason for Consult: Write/Manage Tube Feeding Reason for Consult: Write/Manage Tube Feeding 09/30/16 15:36 Physical Therapy Evaluation and Treat [CONS] Routine Comment: skilled needs Reason For Exam: eval & treat Primary care physician: STEFF[employer] SUPERVISOR Hospitalization Condition: Stable Disposition: DC/TX SNF W [facility] Core Measure Documentation - Palliative Care Palliative Care/ Comfort Measures: Palliative Care/Comfort Measures Exam - Constitutional Vitals: Temp Pulse Resp BP Pulse Ox 98.2 F 109 H 20 123/67 100 10/01/16 08:00 10/01/16 09:00 10/01/16 08:00 10/01/16 08:00 10/01/16 08:00 Plan Activity: advance as tolerated, fall precautions Weight Bearing Status: Non-Weight Bearing Diet: diabetic Durable Medical Equipment Needed Upon Discharge: Oxygen (at 2l/min) Follow up with: PRIMARY CAREMD [Primary Care Provider] - 3-5 Days
[2016-10-01 19:49] VITALS: BP 130/78
== END 2016-10-01 20:15 | DRG 208 ==
LOC: ED 08:17 → CC1 10:42 → 4A 09-27 22:38
PROVIDERS: ADMIT Family Medicine; ATTEND Family Medicine
PROC: 5A1945Z Respiratory Ventilation, 24-96 Consecutive Hours (ICD-10-PCS; principal; 2016-09-25)
PROC: 0BH17EZ Insertion of Endotracheal Airway into Trachea, Via Natural or Artificial Opening (ICD-10-PCS; 2016-09-25)
PROC: 4A033R1 Measurement of Arterial Saturation, Peripheral, Percutaneous Approach (ICD-10-PCS; 2016-09-25)
PROC: 5A09457 Assistance with Respiratory Ventilation, 24-96 Consecutive Hours, Continuous Positive Airway Pressure (ICD-10-PCS; 2016-09-25)
DX: J96.01 Acute respiratory failure with hypoxia (principal); N17.0 Acute kidney failure with tubular necrosis; G40.411 Other generalized epilepsy and epileptic syndromes, intractable, with status epilepticus; I69.951 Hemiplegia and hemiparesis following unspecified cerebrovascular disease affecting right dominant side; N28.9 Disorder of kidney and ureter, unspecified; I65.22 Occlusion and stenosis of left carotid artery; I10 Essential (primary) hypertension; K21.9 Gastro-esophageal reflux disease without esophagitis; M19.90 Unspecified osteoarthritis, unspecified site; E78.5 Hyperlipidemia, unspecified; E11.42 Type 2 diabetes mellitus with diabetic polyneuropathy; E11.65 Type 2 diabetes mellitus with hyperglycemia; R13.12 Dysphagia, oropharyngeal phase; F20.9 Schizophrenia, unspecified; Z90.49 Acquired absence of other specified parts of digestive tract; Z88.0 Allergy status to penicillin; Z88.2 Allergy status to sulfonamides; Z91.040 Latex allergy status; Z90.710 Acquired absence of both cervix and uterus
CPT/HCPCS: 36415; 36600; 70450; 70544; 70551; 71010; 74000; 80048; 80053; 80061; 80164; 81001; 82140; 82550; 82803; 82962; 83036; 83735; 84100; 84484; 85025; 85610; 85670; 85730; 86140; 87070; 87205; 93005; 93010; 94002; 94003; 94640; 94660; 94760; 96365; 96375; A9270-GY; G8987-GO; G8988-GO; G8996-GN; G8997-GN; J0360; J1630; J1650; J1815; J1818; J1953; J2704

== ENCOUNTER 2017-07-15 16:01 | Outpatient (CLI) | payer OTHER ==
--- NOTE | 2017-07-15 17:16 | XRay Report ---
FINAL REPORT PROCEDURE: Chest. TECHNIQUE: PA and lateral views. HISTORY: Essential hypertension, disability examination. COMPARISON: No prior studies are available for comparison. FINDINGS: The heart and mediastinum appear normal. The lungs are clear and well expanded. There are no pleural effusions. The soft tissues are unremarkable. There is a mild thoracolumbar scoliosis. IMPRESSION: No evidence of acute disease.
== END 2017-07-15 16:02 | disposition home or self-care (01) ==
LOC: XRAY 16:01
PROVIDERS: ATTEND Internal Medicine
DX: Z02.71 Encounter for disability determination (principal); I10 Essential (primary) hypertension; M41.85 Other forms of scoliosis, thoracolumbar region
CPT/HCPCS: 71046

== ENCOUNTER 2018-01-26 12:37 | Inpatient (IN) | payer MEDICARE, OTHER ==
[2018-01-26] MEDS ORDERED: NACL 0.9% 1000 ML IV ONE (13:18)
[2018-01-26] MEDS ORDERED: VANCOMYCIN 1,500 MG in NACL 0.9% 500 ML 500 ML IV ONE (13:18)
--- NOTE | 2018-01-26 13:21 | Emergency Department Report ---
ED General Adult HPI - General Chief complaint: Fever Stated complaint: FEVER Time Seen by Provider: 01/26/18 13:08 Source: EMS (ems notes not available at time of chart dictation), RN notes reviewed, old records reviewed Mode of arrival: Stretcher Limitations: Altered Mental Status, Physical Limitation - History of Present Illness Initial comments: This is a 57-year-old female who is not known to this provider previously. She presents to the ER from local long-term, [facility], where it appears that Dr. Gordon Gibson is the physician of record. Past medical history includes stroke with hemiparesis, diabetes, tracheostomy, feeding disorder, chronic respiratory failure, chronic indwelling Morin, functional quadriplegia, and an unstageable sacral ulcer. The patient is sent to the ER by the local long-term for evaluation of fever and tachycardia and labored breathing. It is unknown when the symptoms exactly started. The patient is nonverbal and cannot describe her onset of symptoms, review of symptoms, or exacerbating/relieving factors. As per verbal report from the nurse, who in turn received verbal report from EMS , the patient was febrile and tachycardic in the field. No additional history is available at this time. -: unknown Radiation: other Quality: other Consistency: other Improves with: other Worsens with: other Associated Symptoms: fever/chills, other - Related Data Home Medications Medication Instructions Recorded Confirmed Last Taken Benztropine [Cogentin] 1 mg FEEDTUBE BID 09/25/16 01/26/18 11/19/16 Gabapentin [Neurontin] 300 mg FEEDTUBE BID 11/20/16 01/26/18 11/19/16 Acetaminophen [Tylenol] 650 mg PO Q4H PRN 01/26/18 01/26/18 Unknown Ascorbic Acid [Vitamin C] 500 mg FEEDTUBE BID 01/26/18 01/26/18 Unknown Aspirin [Aspirin TAB] 325 mg FEEDTUBE QDAY 01/26/18 01/26/18 Unknown AtorvaSTATin [Lipitor] 40 mg FEEDTUBE QHS 01/26/18 01/26/18 Unknown Atropine Sulfate 2 - 3 drops SUBLINGUAL Q4-6H PRN 01/26/18 01/26/18 Unknown Furosemide [Lasix] 20 mg FEEDTUBE QDAY 01/26/18 01/26/18 Unknown Glycopyrrolate [Robinul] 1 mg FEEDTUBE Q8H 01/26/18 01/26/18 Unknown Haloperidol [Haldol] 2 mg FEEDTUBE BID 01/26/18 01/26/18 Unknown Heparin Sodium,Porcine [Heparin 5,000 units SUB-Q Q8H 01/26/18 01/26/18 Unknown Sodium] Insulin Glargine,Hum.rec.anlog 22 units SUB-Q HS 01/26/18 01/26/18 Unknown [Lantus] Insulin Lispro [HumaLOG VIAL] 0 units SQ Q6H 01/26/18 01/26/18 Unknown Methimazole [Tapazole] 10 mg FEEDTUBE Q8H 01/26/18 01/26/18 Unknown Ondansetron [Zofran INJ] 4 mg IM Q12HR PRN 01/26/18 01/26/18 Unknown Pantoprazole Sodium [Protonix 40 mg FEEDTUBE Q12H 01/26/18 01/26/18 Unknown GRANULES] Propranolol [Inderal] 10 mg FEEDTUBE Q8H 01/26/18 01/26/18 Unknown Protein Supplement [Promod] 30 ml FEEDTUBE BID 01/26/18 01/26/18 Unknown Sodium Phosphate,[place]-Dibasic 118 ml RC Q24HR PRN 01/26/18 01/26/18 Unknown [Enema Ready To Use] Vit B Comp No.3/Folic/C/Biotin 1 each FEEDTUBE DAILY 01/26/18 01/26/18 Unknown [Nisreen-Terrence Rx Tablet] Zinc Sulfate 220 mg FEEDTUBE DAILY 01/26/18 01/26/18 Unknown amLODIPine [Norvasc] 10 mg FEEDTUBE DAILY 01/26/18 01/26/18 Unknown levETIRAcetam [Keppra ORAL LIQ] 5 ml FEEDTUBE Q12H 01/26/18 01/26/18 Unknown metFORMIN [Glucophage] 500 mg FEEDTUBE BID 01/26/18 01/26/18 Unknown Allergies Allergy/AdvReac Type Severity Reaction Status Date / Time latex Allergy Rash Verified 06/17/14 10:38 Penicillins Allergy Rash Verified 06/17/14 10:38 Sulfa (Sulfonamide Allergy Rash Verified 06/17/14 10:38 Antibiotics) TAPE Allergy Hives Uncoded 06/29/17 13:09 ED Review of Systems ROS: Stated complaint: FEVER Other details as noted in HPI Comment: Unobtainable due to pts medical conditions Constitutional: fever ED Past Medical Hx - Past Medical History Hx Hypertension: Yes Hx CVA: Yes (x3) Hx Heart Attack/AMI: No Hx Congestive Heart Failure: No Hx Diabetes: Yes Hx Deep Vein Thrombosis: No Hx Pulmonary Embolism: No Hx GERD: Yes Hx Liver Disease: No Hx Renal Disease: Yes (patient denies but creatinine 1.3) Hx Sickle Cell Disease: No Hx Arthritis: Yes Hx Seizures: No Hx Kidney Stones: No Hx Asthma: No Hx COPD: No Hx Dementia: No Hx HIV: No - Surgical History Hx Coronary Stent: No Hx Open Heart Surgery: No Hx Pacemaker: No Hx Internal Defibrillator: No Hx Cholecystectomy: Yes Hx Appendectomy: No Hx Breast Surgery: No Additional Surgical History: spinal surgery, carpal tunnel surgery, ankle fx repair, hysterectomy - Social History Smoking Status: Never Smoker Substance Use Type: None - Medications Home Medications: Home Medications Medication Instructions Recorded Confirmed Last Taken Type Benztropine [Cogentin] 1 mg FEEDTUBE BID 09/25/16 01/26/18 11/19/16 History Gabapentin [Neurontin] 300 mg FEEDTUBE BID 11/20/16 01/26/18 11/19/16 History Acetaminophen [Tylenol] 650 mg PO Q4H PRN 01/26/18 01/26/18 Unknown History Ascorbic Acid [Vitamin C] 500 mg FEEDTUBE BID 01/26/18 01/26/18 Unknown History Aspirin [Aspirin TAB] 325 mg FEEDTUBE QDAY 01/26/18 01/26/18 Unknown History AtorvaSTATin [Lipitor] 40 mg FEEDTUBE QHS 01/26/18 01/26/18 Unknown History Atropine Sulfate 2 - 3 drops SUBLINGUAL Q4-6H PRN 01/26/18 01/26/18 Unknown History Furosemide [Lasix] 20 mg FEEDTUBE QDAY 01/26/18 01/26/18 Unknown History Glycopyrrolate [Robinul] 1 mg FEEDTUBE Q8H 01/26/18 01/26/18 Unknown History Haloperidol [Haldol] 2 mg FEEDTUBE BID 01/26/18 01/26/18 Unknown History Heparin Sodium,Porcine [Heparin 5,000 units SUB-Q Q8H 01/26/18 01/26/18 Unknown History Sodium] Insulin Glargine,Hum.rec.anlog 22 units SUB-Q HS 01/26/18 01/26/18 Unknown History [Lantus] Insulin Lispro [HumaLOG VIAL] 0 units SQ Q6H 01/26/18 01/26/18 Unknown History Methimazole [Tapazole] 10 mg FEEDTUBE Q8H 01/26/18 01/26/18 Unknown History Ondansetron [Zofran INJ] 4 mg IM Q12HR PRN 01/26/18 01/26/18 Unknown History Pantoprazole Sodium [Protonix 40 mg FEEDTUBE Q12H 01/26/18 01/26/18 Unknown History GRANULES] Propranolol [Inderal] 10 mg FEEDTUBE Q8H 01/26/18 01/26/18 Unknown History Protein Supplement [Promod] 30 ml FEEDTUBE BID 01/26/18 01/26/18 Unknown History Sodium Phosphate,[place]-Dibasic 118 ml RC Q24HR PRN 01/26/18 01/26/18 Unknown History [Enema Ready To Use] Vit B Comp No.3/Folic/C/Biotin 1 each FEEDTUBE DAILY 01/26/18 01/26/18 Unknown History [Nisreen-Terrence Rx Tablet] Zinc Sulfate 220 mg FEEDTUBE DAILY 01/26/18 01/26/18 Unknown History amLODIPine [Norvasc] 10 mg FEEDTUBE DAILY 01/26/18 01/26/18 Unknown History levETIRAcetam [Keppra ORAL LIQ] 5 ml FEEDTUBE Q12H 01/26/18 01/26/18 Unknown History metFORMIN [Glucophage] 500 mg FEEDTUBE BID 01/26/18 01/26/18 Unknown History ED Physical Exam - General Limitations: Altered Mental Status, Physical Limitation General appearance: lethargic - Head Head exam: Present: atraumatic, normocephalic - Eye Eye exam: Present: normal appearance - ENT ENT exam: Present: normal exam, mucous membranes dry, normal external ear exam, other (there is a tracheostomy tube in place, with no redness, pus or streaking) - Neck Neck exam: Present: normal inspection, full ROM. Absent: tenderness, meningismus - Respiratory Respiratory exam: Present: respiratory distress, rhonchi - Cardiovascular Cardiovascular Exam: Present: normal rhythm, tachycardia, normal heart sounds - GI/Abdominal GI/Abdominal exam: Present: soft, other (there is a PEG tube in place, with no tenderness, no redness, pus or streaking). Absent: distended, tenderness, guarding, rebound, rigid, pulsatile mass - Rectal Rectal exam: Present: other (there is a large stable sacral ulcer, which appears to be healing well, with no redness, pus or streaking). Absent: normal inspection - Extremities Exam Extremities exam: Present: normal inspection, other (2+ pulses noted in the bilateral upper, lower extremities. Compartments soft. No long bony tenderness. The pelvis is stable.). Absent: calf tenderness - Back Exam Back exam: Absent: tenderness, CVA tenderness (R), paraspinal tenderness, vertebral tenderness - Neurological Exam Neurological exam: Present: altered, other (patient is nonverbal and is unable to participate in the neurologic examination) - Psychiatric Psychiatric exam: Present: other (condition is nonverbal) - Skin Skin exam: Present: dry ED Course Vital Signs 01/26/18 01/26/18 01/26/18 13:05 13:30 14:01 Temperature 99.8 F H Pulse Rate 103 H 103 H 98 H Respiratory 19 20 17 Rate Blood Pressure 110/63 109/64 109/64 O2 Sat by Pulse 99 97 100 Oximetry - Reevaluation(s) Reevaluation #1: 01/26/18 14:24 Elevated troponin is reviewed and appreciated. This is most likely secondary to the physiologic stress of patient's recent reported febrile illness. I will defer to the inpatient team to further evaluate this. ED Medical Decision Making - Lab Data Result diagrams: 01/26/18 13:31 01/26/18 13:31 Vital Signs 01/26/18 13:05 Temperature 99.8 F H Pulse Rate 103 H Respiratory 19 Rate Blood Pressure 110/63 O2 Sat by Pulse 99 Oximetry Lab Results 01/26/18 Range/Units 13:31 WBC 14.7 H (4.5-11.0) K/mm3 RBC 2.91 L (3.65-5.03) M/mm3 Hgb 8.6 L (10.1-14.3) gm/dl Hct 27.3 L (30.3-42.9) % MCV 94 (79-97) fl MCH 30 (28-32) pg MCHC 32 (30-34) % RDW 17.9 H (13.2-15.2) % Plt Count 504 H (140-440) K/mm3 Lymph % (Auto) 14.8 (13.4-35.0) % [place] % (Auto) 7.6 H (0.0-7.3) % Eos % (Auto) 2.6 (0.0-4.3) % Baso % (Auto) 0.6 (0.0-1.8) % Lymph # 2.2 (1.2-5.4) K/mm3 [place] # 1.1 H (0.0-0.8) K/mm3 Eos # 0.4 (0.0-0.4) K/mm3 Baso # 0.1 (0.0-0.1) K/mm3 Seg Neutrophils % 74.4 H (40.0-70.0) % Seg Neutrophils # 11.0 H (1.8-7.7) K/mm3 - EKG Data -: EKG Interpreted by Me - EKG Data 01/26/18 13:59 Sinus tachycardia, 101 bpm, normal axis, atrial enlargement, QTC prolonged, high left ventricular voltage, motion artifact Not a stemi - Radiology Data Radiology results: pending, image reviewed interpreted by me: Single view portable x-ray of the chest demonstrates tracheostomy tube, rotated , bibasilar atelectasis, questionable left lower lobe infiltrate versus atelectasis. - Medical Decision Making Differential diagnosis, including but not limited to: Pneumonia, bacteremia, urinary tract infection, sepsis Assessment and plan: 57-year-old female with multiple chronic medical comorbidities, who probably has sepsis secondary to healthcare associated pneumonia. She has a low-grade temperature, tachycardic and leukocytosis, and had a fever in the field. She is hemodynamically appropriate at this time and does not require vasopressor support. Her penicillin allergy is not clarified, and as a fourth generation cephalosporin, cefepime is quite structurally dissimilar to first generation penicillins, and is statistically very unlikely to cause anaphylactic/anaphylactoid reaction. Therefore, the patient will be given cefepime, vancomycin and Levaquin. She'll be resuscitated according to the sepsis pathway with blood cultures, IV fluids and appropriate antibiotic therapy. Nursing team has changed up the patient's Morin catheter. The case was presented to the patient's physician, Dr. Gordon Gibson, who has accepted the patient to his service. Critical care attestation.: If time is entered above; I have spent that time in minutes in the direct care of this critically ill patient, excluding procedure time. ED Disposition Clinical Impression: Sepsis Qualifiers: Sepsis type: sepsis due to unspecified organism Qualified Code(s): A41.9 - Sepsis, unspecified organism Disposition: OP ADMIT IP TO THIS HOSP Is pt being admited?: Yes Condition: Fair Referrals: PRIMARY CARE, [Primary Care Provider] - 3-5 Days
[2018-01-26] MEDS ORDERED: NACL 0.9% 1000 ML 2,000 ML IV ONE (13:47)
[2018-01-26] MEDS ORDERED: NACL 0.9% 250ML 250 ML IV ONE (13:47)
[2018-01-26 13:49] LABS: Basophils # (Auto) 0.1 K/mm3 (0.0-0.1); Basophils % (Auto) 0.6 % (0.0-1.8); Eosinophils # (Auto) 0.4 K/mm3 (0.0-0.4); Eosinophils % (Auto) 2.6 % (0.0-4.3); Hematocrit 27.3 % (30.3-42.9); Hemoglobin 8.6 gm/dl (10.1-14.3); Lymphocytes # (Auto) 2.2 K/mm3 (1.2-5.4); Lymphocytes % (Auto) 14.8 % (13.4-35.0); Mean Corpuscular HGB Conc 32 % (30-34); Mean Corpuscular Hemoglobin 30 pg (28-32); Mean Corpuscular Volume 94 fl (79-97); Monocytes # (Auto) 1.1 K/mm3 (0.0-0.8); Monocytes % (Auto) 7.6 % (0.0-7.3); Platelet Count 504 K/mm3 (140-440); Red Blood Count 2.91 M/mm3 (3.65-5.03); Red Cell Distribution Width 17.9 % (13.2-15.2)
[2018-01-26] MEDS ORDERED: LEVAQUIN 750MG/150ML 750 MG/150 ML BAG IV SCH (14:00)
[2018-01-26 14:05] LABS: Alanine Aminotransferase 6 units/L (7-56); Albumin 3.5 g/dL (3.9-5); BUN/Creatinine Ratio 43; Blood Urea Nitrogen 30 mg/dL (7-17); Calcium 10.7 mg/dL (8.4-10.2); Hemolysis Index 1
--- NOTE | 2018-01-26 14:10 | XRay Report ---
AP CHEST: HISTORY: Fever, rhonchi, sepsis Compared to 07/15/17. Tracheostomy has been placed since the previous exam. The lungs are generally clear. There is minor discoid atelectasis in the lingula. No evidence for pneumonia, pleural effusion or pneumothorax. Heart size is within normal limits. The bony structures are demineralized but grossly intact. IMPRESSION: No acute cardiopulmonary process is identified.
[2018-01-26] MEDS ORDERED: BABY ASPIRIN FEEDTUBE ONE (14:24)
[2018-01-26 14:32] LABS: Chol/HDL Ratio 3.72 %; HDL Cholesterol 40 mg/dL (40-59); LDL Cholesterol,Direct 92 mg/dL (50-130)
[2018-01-26 14:34] LABS: Bacteria,Urine 2+ /HPF (Negative); Bilirubin,Urine NEG (Negative); Blood,Urine NEG (Negative); Color,Urine Yellow (Yellow); Mucus,Urine FEW /HPF; Urobilinogen,Urine < 2.0 mg/dL (<2.0)
[2018-01-26] MEDS ORDERED: VANCOMYCIN 1,250 MG in NACL 0.9% 500 ML 500 ML IV ONE (14:47)
[2018-01-26] MEDS ORDERED: VANCOMYCIN 1,250 MG in NACL 0.9% 250ML 250 ML IV ONE (14:47)
[2018-01-26] MEDS: MAXIPIME/NS 2 GM/100 ML 2 GM/100 ML BAG IV SCH ×2 (15:15→23:08)
[2018-01-26] MEDS ORDERED: NACL 0.9% 250ML 250 ML ONE (15:19)
[2018-01-26] MEDS ORDERED: NACL 0.9% 1000 ML 1,000 ML ONE (17:31)
--- NOTE | 2018-01-26 18:33 | History and Physical Report ---
History of Present Illness Date of examination: 01/26/18 Date of admission: 01/26/18 14:01 History of present illness: 57 yo AA female, with multiple medical, problem, including CHF, CVA, hyperthyroidism. She was sent from the [place], with fevers, cough, and tachycardia.oxygen sat was 96 on 2lNC.She was recently d/c from [facility], where she was on the vent, then treached,and with peg tube. She does have a growth lesion at the tracheotomy site. I have spoken to the ER doctor, and patient is admitted for management of sepsis probably due to pneumonia.I have spoken to the ENT DR Tong to see about the growth. Past History Past Medical History: anemia, hyperthyroidism, hypertension Past Surgical History: Other (tracheostomy.) Social history: no significant social history Family history: no significant family history Medications and Allergies Allergies Allergy/AdvReac Type Severity Reaction Status Date / Time latex Allergy Rash Verified 06/17/14 10:38 Penicillins Allergy Rash Verified 06/17/14 10:38 Sulfa (Sulfonamide Allergy Rash Verified 06/17/14 10:38 Antibiotics) TAPE Allergy Hives Uncoded 11/20/16 13:09 Home Medications Medication Instructions Recorded Confirmed Last Taken Type Benztropine [Cogentin] 1 mg FEEDTUBE BID 09/25/16 01/26/18 11/19/16 History Gabapentin [Neurontin] 300 mg FEEDTUBE BID 11/20/16 01/26/18 11/19/16 History Acetaminophen [Tylenol] 650 mg PO Q4H PRN 01/26/18 01/26/18 Unknown History Ascorbic Acid [Vitamin C] 500 mg FEEDTUBE BID 01/26/18 01/26/18 Unknown History Aspirin [Aspirin TAB] 325 mg FEEDTUBE QDAY 01/26/18 01/26/18 Unknown History AtorvaSTATin [Lipitor] 40 mg FEEDTUBE QHS 01/26/18 01/26/18 Unknown History Atropine Sulfate 2 - 3 drops SUBLINGUAL Q4-6H PRN 01/26/18 01/26/18 Unknown History Furosemide [Lasix] 20 mg FEEDTUBE QDAY 01/26/18 01/26/18 Unknown History Glycopyrrolate [Robinul] 1 mg FEEDTUBE Q8H 01/26/18 01/26/18 Unknown History Haloperidol [Haldol] 2 mg FEEDTUBE BID 01/26/18 01/26/18 Unknown History Heparin Sodium,Porcine [Heparin 5,000 units SUB-Q Q8H 01/26/18 01/26/18 Unknown History Sodium] Insulin Glargine,Hum.rec.anlog 22 units SUB-Q HS 01/26/18 01/26/18 Unknown History [Lantus] Insulin Lispro [HumaLOG VIAL] 0 units SQ Q6H 01/26/18 01/26/18 Unknown History Methimazole [Tapazole] 10 mg FEEDTUBE Q8H 01/26/18 01/26/18 Unknown History Ondansetron [Zofran INJ] 4 mg IM Q12HR PRN 01/26/18 01/26/18 Unknown History Pantoprazole Sodium [Protonix 40 mg FEEDTUBE Q12H 01/26/18 01/26/18 Unknown History GRANULES] Propranolol [Inderal] 10 mg FEEDTUBE Q8H 01/26/18 01/26/18 Unknown History Protein Supplement [Promod] 30 ml FEEDTUBE BID 01/26/18 01/26/18 Unknown History Sodium Phosphate,[place]-Dibasic 118 ml RC Q24HR PRN 01/26/18 01/26/18 Unknown History [Enema Ready To Use] Vit B Comp No.3/Folic/C/Biotin 1 each FEEDTUBE DAILY 01/26/18 01/26/18 Unknown History [Nisreen-Terrence Rx Tablet] Zinc Sulfate 220 mg FEEDTUBE DAILY 01/26/18 01/26/18 Unknown History amLODIPine [Norvasc] 10 mg FEEDTUBE DAILY 01/26/18 01/26/18 Unknown History levETIRAcetam [Keppra ORAL LIQ] 5 ml FEEDTUBE Q12H 01/26/18 01/26/18 Unknown History metFORMIN [Glucophage] 500 mg FEEDTUBE BID 01/26/18 01/26/18 Unknown History Active Meds: Active Medications Cefepime HCl (Maxipime/Ns 2 Gm/100 Ml) 2 gm in 100 mls @ 200 mls/hr IV Q8HR LINDY ; Protocol Last Admin: 01/26/18 15:15 Dose: 200 mls/hr Review of Systems Constitutional: fever, weakness Ears, nose, mouth and throat: hoarseness Breasts: deferred Respiratory: cough, home oxygen Exam - Constitutional Vitals: Temp Pulse Resp BP Pulse Ox 98.9 F 93 H 16 133/72 100 01/26/18 17:14 01/26/18 17:14 01/26/18 17:14 01/26/18 17:14 01/26/18 17:14 General appearance: Present: mild distress - EENT Eyes: Present: PERRL ENT: hearing intact, clear oral mucosa - Neck Neck: Present: supple - Respiratory Respiratory: bilateral: diminished - Cardiovascular Heart Sounds: Present: S1 & S2. Absent: rub, click - Extremities Extremities: pulses symmetrical, No edema Peripheral Pulses: within normal limits - Abdominal General gastrointestinal: Present: soft, non-tender, non-distended, normal bowel sounds Female genitourinary: Present: deferred - Rectal Rectal Exam: deferred - Integumentary Integumentary: Present: clear, warm, dry - Musculoskeletal Musculoskeletal: generalized weakness - Psychiatric Psychiatric: appropriate mood/affect, cooperative - Neurologic Neurologic: CNII-XII intact, moves all extremities Results - Labs CBC & Chem 7: 01/26/18 13:31 01/26/18 13:31 Labs: Abnormal lab results 01/26/18 01/26/18 01/26/18 Range/Units 13:31 13:31 13:59 WBC 14.7 H (4.5-11.0) K/mm3 RBC 2.91 L (3.65-5.03) M/mm3 Hgb 8.6 L (10.1-14.3) gm/dl Hct 27.3 L (30.3-42.9) % RDW 17.9 H (13.2-15.2) % Plt Count 504 H (140-440) K/mm3 [place] % (Auto) 7.6 H (0.0-7.3) % [place] # 1.1 H (0.0-0.8) K/mm3 Seg Neutrophils % 74.4 H (40.0-70.0) % Seg Neutrophils # 11.0 H (1.8-7.7) K/mm3 Chloride 97.9 L (98-107) mmol/L Carbon Dioxide 31 H (22-30) mmol/L BUN 30 H (7-17) mg/dL Glucose 274 H (65-100) mg/dL POC Glucose (70-105) Calcium 10.7 H (8.4-10.2) mg/dL ALT 6 L (7-56) units/L Troponin T 0.755 H* (0.00-0.029) ng/mL Albumin 3.5 L (3.9-5) g/dL Triglycerides 161 H (2-149) mg/dL Urine WBC (Auto) 128.0 H (0.0-6.0) /HPF 01/26/18 Range/Units 14:07 WBC (4.5-11.0) K/mm3 RBC (3.65-5.03) M/mm3 Hgb (10.1-14.3) gm/dl Hct (30.3-42.9) % RDW (13.2-15.2) % Plt Count (140-440) K/mm3 [place] % (Auto) (0.0-7.3) % [place] # (0.0-0.8) K/mm3 Seg Neutrophils % (40.0-70.0) % Seg Neutrophils # (1.8-7.7) K/mm3 Chloride (98-107) mmol/L Carbon Dioxide (22-30) mmol/L BUN (7-17) mg/dL Glucose (65-100) mg/dL POC Glucose 264 H (70-105) Calcium (8.4-10.2) mg/dL ALT (7-56) units/L Troponin T (0.00-0.029) ng/mL Albumin (3.9-5) g/dL Triglycerides (2-149) mg/dL Urine WBC (Auto) (0.0-6.0) /HPF Assessment and Plan - Patient Problems (1) Sepsis Current Visit: Yes Status: Acute Qualifiers: Sepsis type: sepsis due to unspecified organism Qualified Code(s): A41.9 - Sepsis, unspecified organism Plan to address problem: treat the underlying issues at this time. (2) Cough Current Visit: Yes Status: Acute Plan to address problem: justin as pneumonia. (3) Acute respiratory failure Current Visit: Yes Status: Acute Plan to address problem: oxygen support. (4) Anemia Current Visit: Yes Status: Acute Plan to address problem: monitor labs, and adjust. (5) Pneumonia Current Visit: Yes Status: Acute Plan to address problem: oxygen support.
[2018-01-26] MEDS ORDERED: NACL 0.45% 500 ML IV SCH (19:00)
[2018-01-26 21:07] LABS: Free T4 (Free Thyroxine) 0.82 ng/dL (0.76-1.46)
[2018-01-26] MEDS: LOVENOX SUB-Q SCH (23:08)
[2018-01-26] MEDS: HumaLOG SUB-Q SCH (23:09)
[2018-01-27] MEDS: HumaLOG SUB-Q SCH ×6 (02:25→23:19)
[2018-01-27] MEDS: MAXIPIME/NS 2 GM/100 ML 2 GM/100 ML BAG IV SCH ×3 (06:22→22:35)
--- NOTE | 2018-01-27 10:31 | Consultation ---
History of Present Illness Consult date: 01/27/18 Consult reason: elevated troponin History of present illness: This is a 57yr old woman [place] resident with multiple medical problems. She has chronic respiratory failure with chronic tracheostomy in place. She has a history of CVA with hemiplegia and is nonverbal. She also has a history of Diabetes, Hypertension and Anemia. Patient was sent to the emergency department with fever and tachycardia, admitted with sepsis and UTI. Chest x-ray reports no acute process. A cardiac consultation was requested for mild elevated troponin. History is unobtainable. 12 lead ECG shows a sinus tachycardia with LVH. An echcoardiogram 2 years ago documents a normal left ventricular systolic function, ejection fraction 55-60%. Past History Family history: no significant family history Medications and Allergies Allergies Allergy/AdvReac Type Severity Reaction Status Date / Time latex Allergy Rash Verified 06/17/14 10:38 Penicillins Allergy Rash Verified 06/17/14 10:38 Sulfa (Sulfonamide Allergy Rash Verified 06/17/14 10:38 Antibiotics) TAPE Allergy Hives Uncoded 11/20/16 13:09 Home Medications Medication Instructions Recorded Confirmed Last Taken Type Benztropine [Cogentin] 1 mg FEEDTUBE BID 09/25/16 01/26/18 11/19/16 History Gabapentin [Neurontin] 300 mg FEEDTUBE BID 11/20/16 01/26/18 11/19/16 History Acetaminophen [Tylenol] 650 mg PO Q4H PRN 01/26/18 01/26/18 Unknown History Ascorbic Acid [Vitamin C] 500 mg FEEDTUBE BID 01/26/18 01/26/18 Unknown History Aspirin [Aspirin TAB] 325 mg FEEDTUBE QDAY 01/26/18 01/26/18 Unknown History AtorvaSTATin [Lipitor] 40 mg FEEDTUBE QHS 01/26/18 01/26/18 Unknown History Atropine Sulfate 2 - 3 drops SUBLINGUAL Q4-6H PRN 01/26/18 01/26/18 Unknown History Furosemide [Lasix] 20 mg FEEDTUBE QDAY 01/26/18 01/26/18 Unknown History Glycopyrrolate [Robinul] 1 mg FEEDTUBE Q8H 01/26/18 01/26/18 Unknown History Haloperidol [Haldol] 2 mg FEEDTUBE BID 01/26/18 01/26/18 Unknown History Heparin Sodium,Porcine [Heparin 5,000 units SUB-Q Q8H 18 01/26/18 Unknown History Sodium] Insulin Glargine,Hum.rec.anlog 22 units SUB-Q HS 01/26/18 01/26/18 Unknown History [Lantus] Insulin Lispro [HumaLOG VIAL] 0 units SQ Q6H 01/26/18 01/26/18 Unknown History Methimazole [Tapazole] 10 mg FEEDTUBE Q8H 01/26/18 01/26/18 Unknown History Ondansetron [Zofran INJ] 4 mg IM Q12HR PRN 01/26/18 01/26/18 Unknown History Pantoprazole Sodium [Protonix 40 mg FEEDTUBE Q12H 01/26/18 01/26/18 Unknown History GRANULES] Propranolol [Inderal] 10 mg FEEDTUBE Q8H 01/26/18 01/26/18 Unknown History Protein Supplement [Promod] 30 ml FEEDTUBE BID 01/26/18 01/26/18 Unknown History Sodium Phosphate,[place]-Dibasic 118 ml RC Q24HR PRN 01/26/18 01/26/18 Unknown History [Enema Ready To Use] Vit B Comp No.3/Folic/C/Biotin 1 each FEEDTUBE DAILY 01/26/18 01/26/18 Unknown History [Nisreen-Terrence Rx Tablet] Zinc Sulfate 220 mg FEEDTUBE DAILY 01/26/18 01/26/18 Unknown History amLODIPine [Norvasc] 10 mg FEEDTUBE DAILY 01/26/18 01/26/18 Unknown History levETIRAcetam [Keppra ORAL LIQ] 5 ml FEEDTUBE Q12H 01/26/18 01/26/18 Unknown History metFORMIN [Glucophage] 500 mg FEEDTUBE BID 01/26/18 01/26/18 Unknown History Active Meds: Active Medications Enoxaparin Sodium (Lovenox) 40 mg SUB-Q QDAY@2200 LINDY Last Admin: 01/26/18 23:08 Dose: 40 mg Cefepime HCl (Maxipime/Ns 2 Gm/100 Ml) 2 gm in 100 mls @ 200 mls/hr IV Q8HR LINDY ; Protocol Last Admin: 01/27/18 06:22 Dose: 200 mls/hr Sodium Chloride (Nacl 0.45%) 500 mls @ 50 mls/hr IV DIRECT LINDY Insulin Human Lispro (Humalog) 0 unit SUB-Q Q4HR LINDY; Protocol Last Admin: 01/27/18 06:35 Dose: 3 unit Physical Examination Vital Signs Temp Pulse Resp BP Pulse Ox 99.8 F H 103 H 19 110/63 99 01/26/18 13:05 01/26/18 13:05 01/26/18 13:05 01/26/18 13:05 01/26/18 13:05 General appearance: no acute distress Cardiac: Positive: Tachycardia Results 01/26/18 13:31 01/26/18 13:31 Cardiac Enzymes 01/26/18 Range/Units 13:31 AST 13 (5-40) units/L Coagulation 01/26/18 Range/Units 13:31 APTT 28.7 (24.2-36.6) Sec. Lipids 01/26/18 Range/Units 13:31 Triglycerides 161 H (2-149) mg/dL Cholesterol 149 (50-199) mg/dL HDL Cholesterol 40 (40-59) mg/dL Cholesterol/HDL Ratio 3.72 % CBC 01/26/18 Range/Units 13:31 WBC 14.7 H (4.5-11.0) K/mm3 RBC 2.91 L (3.65-5.03) M/mm3 Hgb 8.6 L (10.1-14.3) gm/dl Hct 27.3 L (30.3-42.9) % Plt Count 504 H (140-440) K/mm3 Lymph # 2.2 (1.2-5.4) K/mm3 [place] # 1.1 H (0.0-0.8) K/mm3 Eos # 0.4 (0.0-0.4) K/mm3 Baso # 0.1 (0.0-0.1) K/mm3 Comprehensive Metabolic Panel 01/26/18 Range/Units 13:31 Sodium 140 (137-145) mmol/L Potassium 4.6 (3.6-5.0) mmol/L Chloride 97.9 L (98-107) mmol/L Carbon Dioxide 31 H (22-30) mmol/L BUN 30 H (7-17) mg/dL Creatinine 0.7 (0.7-1.2) mg/dL Glucose 274 H (65-100) mg/dL Calcium 10.7 H (8.4-10.2) mg/dL AST 13 (5-40) units/L ALT 6 L (7-56) units/L Alkaline Phosphatase 91 (35-129) units/L Total Protein 7.4 (6.3-8.2) g/dL Albumin 3.5 L (3.9-5) g/dL Assessment and Plan Sepsis UTI Anemia Chronic Respiratory failure s/p tracheostomy Mild elevated troponin Prior CVA An echcoardiogram 2 years ago documents a normal left ventricular systolic function, ejection fraction 55-60%.
[2018-01-27] MEDS ORDERED: SODIUM BICARBONATE FEEDTUBE PRN (14:00)
[2018-01-27] MEDS ORDERED: PANCREAZE DR 10,500 UNIT FEEDTUBE PRN (14:00)
[2018-01-27] MEDS ORDERED: SIMPLE SYRUP FEEDTUBE PRN ×2 (14:00)
--- NOTE | 2018-01-27 16:59 | Consultation ---
History of Present Illness - Reason for Consult Consult date: 01/27/18 yeast in the urine/UTI/sepsis - History of Present Illness 57 y/o female with history of chronic respiratory failure with chronic tracheostomy in place, CVA with hemiplegia, diabetes, hypertension and anemia, resident of a retirement, admitted on 01/26/18 due to recent fever, cough and tachycardia. She was recently transferred from LTAC to retirement, there she was on the vent, then trached and with peg tube was placed. Staff also noted a growth lesion at the tracheotomy site. Interview is difficult because patient has difficulties communicating. In the ED, temp 99.8, HR 103, R 19, BP 110/63. WBC 14.7. Hg 8.6. Plat 504. Creat 0.7. Glu 274. UA showed 128 wbc, large LE and 3+ yeast. CXR clear. Micro: Blood cultures: 01/26 ngtd Urine cultures: 01/26 GNRs Abx: cefepime 01/26 Past History Past Medical History: anemia, hyperthyroidism, hypertension Past Surgical History: Other (tracheostomy.) Social history: no significant social history Family history: no significant family history Medications and Allergies Allergies Allergy/AdvReac Type Severity Reaction Status Date / Time latex Allergy Rash Verified 06/17/14 10:38 Penicillins Allergy Rash Verified 06/17/14 10:38 Sulfa (Sulfonamide Allergy Rash Verified 06/17/14 10:38 Antibiotics) TAPE Allergy Hives Uncoded 11/20/16 13:09 Home Medications Medication Instructions Recorded Confirmed Last Taken Type Benztropine [Cogentin] 1 mg FEEDTUBE BID 09/25/16 01/26/18 11/19/16 History Gabapentin [Neurontin] 300 mg FEEDTUBE BID 11/20/16 01/26/18 11/19/16 History Acetaminophen [Tylenol] 650 mg PO Q4H PRN 01/26/18 01/26/18 Unknown History Ascorbic Acid [Vitamin C] 500 mg FEEDTUBE BID 01/26/18 01/26/18 Unknown History Aspirin [Aspirin TAB] 325 mg FEEDTUBE QDAY 01/26/18 01/26/18 Unknown History AtorvaSTATin [Lipitor] 40 mg FEEDTUBE QHS 01/26/18 01/26/18 Unknown History Atropine Sulfate 2 - 3 drops SUBLINGUAL Q4-6H PRN 01/26/18 01/26/18 Unknown History Furosemide [Lasix] 20 mg FEEDTUBE QDAY 01/26/18 01/26/18 Unknown History Glycopyrrolate [Robinul] 1 mg FEEDTUBE Q8H 01/26/18 01/26/18 Unknown History Haloperidol [Haldol] 2 mg FEEDTUBE BID 01/26/18 01/26/18 Unknown History Heparin Sodium,Porcine [Heparin 5,000 units SUB-Q Q8H 01/26/18 01/26/18 Unknown History Sodium] Insulin Glargine,Hum.rec.anlog 22 units SUB-Q HS 01/26/18 01/26/18 Unknown History [Lantus] Insulin Lispro [HumaLOG VIAL] 0 units SQ Q6H 01/26/18 01/26/18 Unknown History Methimazole [Tapazole] 10 mg FEEDTUBE Q8H 01/26/18 01/26/18 Unknown History Ondansetron [Zofran INJ] 4 mg IM Q12HR PRN 01/26/18 01/26/18 Unknown History Pantoprazole Sodium [Protonix 40 mg FEEDTUBE Q12H 01/26/18 01/26/18 Unknown History GRANULES] Propranolol [Inderal] 10 mg FEEDTUBE Q8H 01/26/18 01/26/18 Unknown History Protein Supplement [Promod] 30 ml FEEDTUBE BID 01/26/18 01/26/18 Unknown History Sodium Phosphate,[place]-Dibasic 118 ml RC Q24HR PRN 01/26/18 01/26/18 Unknown History [Enema Ready To Use] Vit B Comp No.3/Folic/C/Biotin 1 each FEEDTUBE DAILY 01/26/18 01/26/18 Unknown History [Nisreen-Terrence Rx Tablet] Zinc Sulfate 220 mg FEEDTUBE DAILY 01/26/18 01/26/18 Unknown History amLODIPine [Norvasc] 10 mg FEEDTUBE DAILY 01/26/18 01/26/18 Unknown History levETIRAcetam [Keppra ORAL LIQ] 5 ml FEEDTUBE Q12H 01/26/18 01/26/18 Unknown History metFORMIN [Glucophage] 500 mg FEEDTUBE BID 01/26/18 01/26/18 Unknown History Active Meds: Active Medications Lipase/Protease/Amylase (Pancreaze Dr 10,500 Unit) 1 each FEEDTUBE PRN PRN PRN Reason: For Clogged Feeding Tube Enoxaparin Sodium (Lovenox) 40 mg SUB-Q QDAY@2200 LINDY Last Admin: 01/26/18 23:08 Dose: 40 mg Cefepime HCl (Maxipime/Ns 2 Gm/100 Ml) 2 gm in 100 mls @ 200 mls/hr IV Q8HR LINDY ; Protocol Last Admin: 01/27/18 14:26 Dose: 200 mls/hr Sodium Chloride (Nacl 0.45%) 500 mls @ 50 mls/hr IV DIRECT LINDY Insulin Human Lispro (Humalog) 0 unit SUB-Q Q4HR LINDY; Protocol Last Admin: 01/27/18 11:00 Dose: Not Given Simple Syrup (Simple Syrup) 15 ml FEEDTUBE PRN PRN PRN Reason: Hypoglycemia Simple Syrup (Simple Syrup) 30 ml FEEDTUBE PRN PRN PRN Reason: Hypoglycemia Sodium Bicarbonate (Sodium Bicarbonate) 325 mg FEEDTUBE PRN PRN PRN Reason: For Clogged Feeding Tube Review of Systems ROS unobtainable: due to endotracheal tube, due to mental status Physical Examination - Physical Exam Narrative exam: Alert in NAD NC/AT, RAFAEL, limited OP Neck +Trach with valve no secretions Lungs naila scattered rhonchi CV RRR Abd soft NT ND +PEG Ext naila naila leg edema, no tenderness Neuro: aphasic, alert, +hemiplegia - Constitutional Vitals: Vital Signs Temp Pulse Resp BP Pulse Ox 98.0 F 97 H 18 134/70 100 01/27/18 11:58 01/27/18 11:58 01/27/18 11:58 01/27/18 11:58 01/27/18 12:20 Temperature -Last 24 Hours Temperature 98.0 F Temperature 98.0 F Temperature 98.1 F Temperature 98.1 F Temperature 98.9 F Results - Labs CBC & Chem 7: 01/26/18 13:31 01/26/18 13:31 Labs: Abnormal lab results 01/26/18 01/26/18 01/27/18 Range/Units 18:37 21:47 01:58 POC Glucose 257 H 261 H 217 H (70-105) 01/27/18 01/27/18 01/27/18 Range/Units 06:27 07:38 11:17 POC Glucose 220 H 196 H 132 H (70-105) 01/27/18 Range/Units 15:50 POC Glucose 195 H (70-105) Assessment and Plan Assessment: 1) Sepsis: Present on admission, manifested by mild fever, tachycardia, leukocytosis. Etiology most likely UTI. 2) Acute UTI: urine cx growing GNRs. UA showed yeast likely contaminant 3) Chronic respiratory failure with chronic tracheostomy in place 4) CVA with hemiplegia 5) Diabetes - uncontrolled 6) Hypertension 7) Growth lesion at the tracheotomy site ? Plan: -follow-up blood cultures and urine cultures -continue cefepime -monitor fever and leukocytosis -upon discharge will prob do oral abx depending on urine cx Thank you for your consultation, will follow up with you. Ilda Bender MD Infectious Diseases Specialist [facility] ([facility] M [phone] O [phone]
[2018-01-27] MEDS: NORCO 5/325 PO PRN (18:07)
--- NOTE | 2018-01-27 20:01 | Progress Note ---
Assessment and Plan - Patient Problems (1) Sepsis Current Visit: Yes Status: Acute Qualifiers: Sepsis type: sepsis due to unspecified organism Qualified Code(s): A41.9 - Sepsis, unspecified organism Plan to address problem: treat the underlying issues at this time. see notes above. (2) Cough Current Visit: Yes Status: Acute Plan to address problem: treat as pneumonia. (3) Acute respiratory failure Current Visit: Yes Status: Acute Plan to address problem: oxygen support. (4) Anemia Current Visit: Yes Status: Acute Plan to address problem: monitor labs, and adjust. (5) Pneumonia Current Visit: Yes Status: Acute Plan to address problem: oxygen support. Subjective Date of service: 01/27/18 Interval history: Patient seen, examined, labs notes reviewed, case d/w patient, and family at the bed side. appreciate the consultants.will follow rec accordingly.ENT is seeing patient at this moment.Continue IV ABX,for few more days, repeat culture , and if negative, will d/c back to the NH on oral meds. Objective - Constitutional Vitals: Vital Signs - 12hr 01/27/18 01/27/18 01/27/18 11:58 12:20 17:33 Temperature 98.0 F 98.2 F Pulse Rate 97 H 109 H Respiratory 18 22 Rate Blood Pressure 134/70 145/77 O2 Sat by Pulse 100 100 100 Oximetry O2 Sat by Pulse 100 Oximetry [ Assessment] 01/27/18 18:07 Temperature Pulse Rate Respiratory 20 Rate Blood Pressure O2 Sat by Pulse Oximetry O2 Sat by Pulse Oximetry [ Assessment] General appearance: Present: no acute distress - EENT Eyes: PERRL, EOM intact ENT: hearing intact, clear oral mucosa Ears: bilateral: normal - Neck Neck: supple, normal ROM - Respiratory Respiratory: bilateral: rhonchi - Breasts Breasts: deferred - Cardiovascular Rhythm: regular Heart Sounds: Present: S1 & S2. Absent: gallop, rub Extremities: pulses intact, No edema, normal color, Full ROM - Gastrointestinal General gastrointestinal: Present: soft, non-tender, non-distended, normal bowel sounds Rectal Exam: deferred - Genitourinary Female genitourinary: deferred - Integumentary Integumentary: clear, warm, dry - Musculoskeletal Musculoskeletal: 1, strength equal bilaterally - Neurologic Neurologic: moves all extremities - Psychiatric Psychiatric: appropriate mood/affect, memory intact - Labs CBC & Chem 7: 01/26/18 13:31 01/26/18 13:31 Labs: Abnormal lab results 01/26/18 01/27/18 01/27/18 Range/Units 21:47 01:58 06:27 POC Glucose 261 H 217 H 220 H (70-105) 01/27/18 01/27/18 01/27/18 Range/Units 07:38 11:17 15:50 POC Glucose 196 H 132 H 195 H (70-105)
--- NOTE | 2018-01-27 20:26 | Consultation ---
History of Present Illness - Reason for Consult Consult date: 01/27/18 trache eval - History of Present Illness Ms. Arteagan57 yo AA woman who was transferred from her LTAC yesterday for evaluation due to a change in status from her baseline. She was subsequently admitted for treatment of: * Sepsis * Productive Cough * Acute Respiratory Failure * Anemia * Pneumonia She is trache dependant and does well with her PMV. Past History Past Medical History: anemia, hyperthyroidism, hypertension Past Surgical History: Other (tracheostomy & PEG) Social history: no significant social history (PEG) Family history: no significant family history Medications and Allergies Allergies Allergy/AdvReac Type Severity Reaction Status Date / Time latex Allergy Rash Verified 06/17/14 10:38 Penicillins Allergy Rash Verified 06/17/14 10:38 Sulfa (Sulfonamide Allergy Rash Verified 06/17/14 10:38 Antibiotics) TAPE Allergy Hives Uncoded 11/20/16 13:09 Home Medications Medication Instructions Recorded Confirmed Last Taken Type Benztropine [Cogentin] 1 mg FEEDTUBE BID 09/25/16 01/26/18 11/19/16 History Gabapentin [Neurontin] 300 mg FEEDTUBE BID 11/20/16 01/26/18 11/19/16 History Acetaminophen [Tylenol] 650 mg PO Q4H PRN 01/26/18 01/26/18 Unknown History Ascorbic Acid [Vitamin C] 500 mg FEEDTUBE BID 01/26/18 01/26/18 Unknown History Aspirin [Aspirin TAB] 325 mg FEEDTUBE QDAY 01/26/18 01/26/18 Unknown History AtorvaSTATin [Lipitor] 40 mg FEEDTUBE QHS 01/26/18 01/26/18 Unknown History Atropine Sulfate 2 - 3 drops SUBLINGUAL Q4-6H PRN 01/26/18 01/26/18 Unknown History Furosemide [Lasix] 20 mg FEEDTUBE QDAY 01/26/18 01/26/18 Unknown History Glycopyrrolate [Robinul] 1 mg FEEDTUBE Q8H 01/26/18 01/26/18 Unknown History Haloperidol [Haldol] 2 mg FEEDTUBE BID 01/26/18 01/26/18 Unknown History Heparin Sodium,Porcine [Heparin 5,000 units SUB-Q Q8H 01/26/18 01/26/18 Unknown History Sodium] Insulin Glargine,Hum.rec.anlog 22 units SUB-Q HS 01/26/18 01/26/18 Unknown History [Lantus] Insulin Lispro [HumaLOG VIAL] 0 units SQ Q6H 01/26/18 01/26/18 Unknown History Methimazole [Tapazole] 10 mg FEEDTUBE Q8H 01/26/18 01/26/18 Unknown History Ondansetron [Zofran INJ] 4 mg IM Q12HR PRN 01/26/18 01/26/18 Unknown History Pantoprazole Sodium [Protonix 40 mg FEEDTUBE Q12H 01/26/18 01/26/18 Unknown History GRANULES] Propranolol [Inderal] 10 mg FEEDTUBE Q8H 01/26/18 01/26/18 Unknown History Protein Supplement [Promod] 30 ml FEEDTUBE BID 01/26/18 01/26/18 Unknown History Sodium Phosphate,[place]-Dibasic 118 ml RC Q24HR PRN 01/26/18 01/26/18 Unknown History [Enema Ready To Use] Vit B Comp No.3/Folic/C/Biotin 1 each FEEDTUBE DAILY 01/26/18 01/26/18 Unknown History [Nisreen-Terrence Rx Tablet] Zinc Sulfate 220 mg FEEDTUBE DAILY 01/26/18 01/26/18 Unknown History amLODIPine [Norvasc] 10 mg FEEDTUBE DAILY 01/26/18 01/26/18 Unknown History levETIRAcetam [Keppra ORAL LIQ] 5 ml FEEDTUBE Q12H 01/26/18 01/26/18 Unknown History metFORMIN [Glucophage] 500 mg FEEDTUBE BID 01/26/18 01/26/18 Unknown History Active Meds: Active Medications Acetaminophen/Hydrocodone Bitart ([place] 5/325) 1 each PO Q6H PRN PRN Reason: Pain, Moderate (4-6) Last Admin: 01/27/18 18:07 Dose: 1 each Lipase/Protease/Amylase ([address] Dr 10,500 Unit) 1 each FEEDTUBE PRN PRN PRN Reason: For Clogged Feeding Tube Enoxaparin Sodium (Lovenox) 40 mg SUB-Q QDAY@2200 LINDY Last Admin: 01/26/18 23:08 Dose: 40 mg Cefepime HCl (Maxipime/Ns 2 Gm/100 Ml) 2 gm in 100 mls @ 200 mls/hr IV Q8HR LINDY ; Protocol Last Infusion: 01/27/18 20:18 Dose: Infused Sodium Chloride (Nacl 0.45%) 500 mls @ 50 mls/hr IV DIRECT LINDY Insulin Human Lispro (Humalog) 0 unit SUB-Q Q4HR LINDY; Protocol Last Admin: 01/27/18 18:08 Dose: 2 unit Simple Syrup (Simple Syrup) 15 ml FEEDTUBE PRN PRN PRN Reason: Hypoglycemia Simple Syrup (Simple Syrup) 30 ml FEEDTUBE PRN PRN PRN Reason: Hypoglycemia Sodium Bicarbonate (Sodium Bicarbonate) 325 mg FEEDTUBE PRN PRN PRN Reason: For Clogged Feeding Tube Exam - Constitutional Vitals: Temp Pulse Resp BP Pulse Ox 98.2 F 109 H 20 145/77 100 01/27/18 17:33 01/27/18 17:33 01/27/18 18:07 01/27/18 17:33 01/27/18 17:33 General appearance: Present: no acute distress, well-nourished - EENT Eyes: Present: PERRL, EOM intact ENT: hearing intact, clear oral mucosa, poor dentition - Neck Neck: Present: supple, other (trache midline stoma clean & dry, well healed, no sx of infection nor granulation tissue) - Respiratory Respiratory effort: normal, other (Trache collar in place, comfortable with PMV in place) - Cardiovascular Rhythm: regular Heart Sounds: Present: S1 & S2 - Extremities Extremities: no ischemia, pulses symmetrical - Abdominal General gastrointestinal: Present: soft, non-tender Female genitourinary: Present: deferred - Rectal Rectal Exam: deferred - Integumentary Integumentary: Present: clear, warm, dry (Y) - Musculoskeletal Musculoskeletal: other (decreased tone) - Psychiatric Psychiatric: appropriate mood/affect ( and) - Neurologic Neurologic: CNII-XII intact Results - Labs CBC & Chem 7: 01/26/18 13:31 01/26/18 13:31 Labs: Abnormal lab results 01/26/18 01/27/18 01/27/18 Range/Units 21:47 01:58 06:27 POC Glucose 261 H 217 H 220 H (70-105) 01/27/18 01/27/18 01/27/18 Range/Units 07:38 11:17 15:50 POC Glucose 196 H 132 H 195 H (70-105) Assessment and Plan - Patient Problems (1) Tracheostomy status Current Visit: Yes Status: Acute Plan to address problem: local trache care, will need to f/u with pt. old hx to establish why she can not be capped (2) Acute respiratory failure Current Visit: Yes Status: Acute Plan to address problem: titrate O2 to keep sat >= 92% (3) Anemia Current Visit: Yes Status: Acute Plan to address problem: transfuse prn per primary service (4) Cough Current Visit: Yes Status: Acute Plan to address problem: antitussive, consider tessalon 100 mg q 8hrs prn cough per primary service (5) Pneumonia Current Visit: Yes Status: Acute Plan to address problem: antibx per ID (6) Sepsis Current Visit: Yes Status: Acute Qualifiers: Sepsis type: sepsis due to unspecified organism Qualified Code(s): A41.9 - Sepsis, unspecified organism Plan to address problem: antibx per ID (7) Acute right-sided weakness Current Visit: No Status: Acute Plan to address problem: per neuro & primary service (8) Leukocytosis Current Visit: Yes Status: Acute Plan to address problem: antibx per ID
[2018-01-27] MEDS: LOVENOX SUB-Q SCH (22:35)
[2018-01-28] MEDS: HumaLOG SUB-Q SCH ×6 (05:33→23:27)
[2018-01-28] MEDS: MAXIPIME/NS 2 GM/100 ML 2 GM/100 ML BAG IV SCH ×2 (06:59→14:39)
--- NOTE | 2018-01-28 09:05 | Progress Note ---
Assessment and Plan Sepsis UTI Anemia Chronic Respiratory failure trach dependent Mild elevated troponin No ischemic ECG changes on ECG Prior CVA An echcoardiogram 2 years ago documents a normal left ventricular systolic function, ejection fraction 55-60%. Conservative cardiac management is recommended. Subjective Date of service: 01/28/18 Interval history: No distress noted. Objective Vital Signs Temp Pulse Resp BP Pulse Ox Pulse Ox 01/28/18 05:30 98.4 F 107 H 24 127/60 100 01/28/18 00:00 98.3 F 109 H 24 128/69 100 01/27/18 23:58 98.3 F 108 H 24 100 01/27/18 23:54 98.0 F 24 01/27/18 21:21 100 01/27/18 21:20 100 01/27/18 18:07 20 01/27/18 17:33 98.2 F 109 H 22 145/77 100 01/27/18 12:20 100 100 01/27/18 11:58 98.0 F 97 H 18 134/70 100 - Physical Examination General: No Apparent Distress HEENT: Positive: PERRL Cardiac: Positive: Tachycardia
--- NOTE | 2018-01-28 12:04 | Progress Note ---
<NIKHIL LEMA - Last Filed: 01/28/18 15:52> Assessment and Plan Assessment: 1) Sepsis improved.. Etiology most likely UTI. 2) Acute UTI: urine cx growing GNRs. UA showed yeast likely contaminant 3) Chronic respiratory failure with chronic tracheostomy in place 4) CVA with hemiplegia 5) Diabetes - uncontrolled 6) Hypertension 7) Growth lesion at the tracheotomy site ? Plan: -stop cefepime - tolerating well no reaction -start ceftin -continue to monitor fever and leukocytosis -upon discharge will prob do oral ceftin 500 mg po q12h total 10 days until 02-06 Nikhil Lema NP [facility] M: [phone] O:[phone]. Subjective Date of service: 01/28/18 Interval history: Patient was sitting up in bed. Eyes open, unable to communicate due to tracheostomy , having difficulty communicating. Micro: Blood cultures: 01/26 ngtd Urine cultures: 01/26 GNRs Abx: cefepime 01/26 Objective - Exam Narrative Exam: Alert in NAD NC/AT, RAFAEL, limited OP Neck +Trach with valve no secretions Lungs naila scattered rhonchi CV RRR Abd soft NT ND +PEG Ext naila naila leg edema, no tenderness Neuro: aphasic, alert, +hemiplegia - Constitutional Vitals: Vital Signs Temp Pulse Resp BP Pulse Ox 98.4 F 107 H 24 127/60 100 01/28/18 05:30 01/28/18 05:30 01/28/18 05:30 01/28/18 05:30 01/28/18 10:05 Temperature -Last 24 Hours Temperature 98.4 F Temperature 98.3 F Temperature 98.3 F Temperature 98.0 F Temperature 98.2 F - Labs CBC & Chem 7: 01/28/18 15:20 01/26/18 13:31 Labs: Abnormal lab results 01/27/18 01/27/18 01/28/18 Range/Units 15:50 20:42 00:47 POC Glucose 195 H 176 H 164 H (70-105) 01/28/18 Range/Units 05:39 POC Glucose 229 H (70-105) <ILDA NEVILLE - Last Filed: 01/28/18 20:14> Subjective Interval history: Patient seen and examined with [employer] Andrea. Doing better. Urine cx grew E coli resis to amp/quinolones. Will do oral ceftin 500 mg po q12h total 10 days until 02/06. Ilda Gonzalez MD Objective - Constitutional Vitals: Vital Signs Temp Pulse Resp BP Pulse Ox 98.8 F 102 H 20 157/80 100 01/28/18 12:11 01/28/18 12:11 01/28/18 12:11 01/28/18 12:11 01/28/18 12:11 Temperature -Last 24 Hours Temperature 98.8 F Temperature 98.4 F Temperature 98.3 F Temperature 98.3 F Temperature 98.0 F - Labs CBC & Chem 7: 01/28/18 15:20 01/26/18 13:31 Labs: Abnormal lab results 01/27/18 01/28/18 01/28/18 Range/Units 20:42 00:47 05:39 RBC (3.65-5.03) M/mm3 Hgb (10.1-14.3) gm/dl Hct (30.3-42.9) % RDW (13.2-15.2) % Plt Count (140-440) K/mm3 B[place] % (Auto) (0.0-7.3) % POC Glucose 176 H 164 H 229 H (70-105) 01/28/18 01/28/18 01/28/18 Range/Units 07:43 14:28 15:20 RBC 2.63 L (3.65-5.03) M/mm3 Hgb 8.1 L (10.1-14.3) gm/dl Hct 24.5 L (30.3-42.9) % RDW 18.4 H (13.2-15.2) % Plt Count 459 H (140-440) K/mm3 [place] % (Auto) 8.5 H (0.0-7.3) % POC Glucose 141 H 193 H (70-105) 01/28/18 Range/Units 18:27 RBC (3.65-5.03) M/mm3 Hgb (10.1-14.3) gm/dl Hct (30.3-42.9) % RDW (13.2-15.2) % Plt Count (140-440) K/mm3 [place] % (Auto) (0.0-7.3) % POC Glucose 218 H (70-105)
--- NOTE | 2018-01-28 13:32 | Progress Note ---
Assessment and Plan - Patient Problems (1) Sepsis Current Visit: Yes Status: Acute Qualifiers: Sepsis type: sepsis due to unspecified organism Qualified Code(s): A41.9 - Sepsis, unspecified organism Plan to address problem: treat the underlying issues at this time. see notes above. improving (2) Cough Current Visit: Yes Status: Acute Plan to address problem: treat as pneumonia. No true PNA on CXR. (3) Acute respiratory failure Current Visit: Yes Status: Acute Plan to address problem: oxygen support. (4) Anemia Current Visit: Yes Status: Acute Plan to address problem: monitor labs, and adjust. (5) Pneumonia Current Visit: Yes Status: Acute Plan to address problem: oxygen support. Subjective Date of service: 01/28/18 Interval history: Patient seen, examined, labs notes reviewed, case d/w patient, and family at the bed side. appreciate the consultants.will follow rec accordingly.ENT is seeing patient at this moment.Continue IV ABX,for few more days, repeat culture , and if negative, will d/c back to the NH on oral meds. Patient seen, examined, resting in bed, labs /notes reviewed, no new issues at this time.Will follow rec of ID regarding disposition back to the [place]. Objective - Constitutional Vitals: Vital Signs - 12hr 01/28/18 01/28/18 01/28/18 05:30 10:00 10:05 Temperature 98.4 F Pulse Rate 107 H Respiratory 24 Rate Blood Pressure 127/60 O2 Sat by Pulse 100 100 Oximetry O2 Sat by Pulse 100 Oximetry [ Assessment] 01/28/18 12:11 Temperature 98.8 F Pulse Rate 102 H Respiratory 20 Rate Blood Pressure 157/80 O2 Sat by Pulse 100 Oximetry O2 Sat by Pulse Oximetry [ Assessment] General appearance: Present: no acute distress - EENT Eyes: PERRL, EOM intact ENT: hearing intact, clear oral mucosa Ears: bilateral: normal - Neck Neck: supple, normal ROM - Respiratory Respiratory: bilateral: rhonchi - Breasts Breasts: deferred - Cardiovascular Rhythm: regular Heart Sounds: Present: S1 & S2. Absent: gallop, rub Extremities: pulses intact, No edema, normal color, Full ROM - Gastrointestinal General gastrointestinal: Present: soft, non-tender, non-distended, normal bowel sounds Rectal Exam: deferred - Genitourinary Female genitourinary: deferred - Integumentary Integumentary: clear, warm, dry - Musculoskeletal Musculoskeletal: 1, strength equal bilaterally - Neurologic Neurologic: moves all extremities - Psychiatric Psychiatric: memory intact, appropriate mood/affect, intact judgment & insight - Labs CBC & Chem 7: 01/26/18 13:31 01/26/18 13:31 Labs: Abnormal lab results 01/27/18 01/27/18 01/28/18 Range/Units 15:50 20:42 00:47 POC Glucose 195 H 176 H 164 H (70-105) 01/28/18 Range/Units 05:39 POC Glucose 229 H (70-105)
[2018-01-28 15:32] LABS: Basophils % (Auto) 0.5 % (0.0-1.8); Eosinophils # (Auto) 0.3 K/mm3 (0.0-0.4); Eosinophils % (Auto) 3.9 % (0.0-4.3); Hematocrit 24.5 % (30.3-42.9); Hemoglobin 8.1 gm/dl (10.1-14.3); Lymphocytes # (Auto) 1.7 K/mm3 (1.2-5.4); Lymphocytes % (Auto) 20.1 % (13.4-35.0); Mean Corpuscular HGB Conc 33 % (30-34); Mean Corpuscular Hemoglobin 31 pg (28-32); Mean Corpuscular Volume 93 fl (79-97); Monocytes # (Auto) 0.7 K/mm3 (0.0-0.8); Monocytes % (Auto) 8.5 % (0.0-7.3); Platelet Count 459 K/mm3 (140-440); Red Blood Count 2.63 M/mm3 (3.65-5.03); Red Cell Distribution Width 18.4 % (13.2-15.2)
[2018-01-28] MEDS: CEFTIN PO SCH ×2 (18:36→22:30)
--- NOTE | 2018-01-28 19:16 | Progress Note ---
Assessment and Plan - Patient Problems (1) Tracheostomy status Current Visit: Yes Status: Acute (2) Acute respiratory failure Current Visit: Yes Status: Acute (3) Anemia Current Visit: Yes Status: Acute (4) Cough Current Visit: Yes Status: Acute (5) Pneumonia Current Visit: Yes Status: Acute (6) Sepsis Current Visit: Yes Status: Acute Qualifiers: Sepsis type: sepsis due to unspecified organism Qualified Code(s): A41.9 - Sepsis, unspecified organism (7) Acute right-sided weakness Current Visit: No Status: Acute (8) Leukocytosis Current Visit: Yes Status: Acute Subjective Date of service: 01/28/18 Principal diagnosis: Sepsis Interval history: Pt. resting comfortably with family at bedside. Family report she has greatly improved sensorium and secretions Objective - Constitutional Vitals: Vital Signs - 12hr 01/28/18 01/28/18 01/28/18 10:00 10:05 12:11 Temperature 98.8 F Pulse Rate 102 H Respiratory 20 Rate Blood Pressure 157/80 O2 Sat by Pulse 100 100 Oximetry O2 Sat by Pulse 100 Oximetry [ Assessment] General appearance: Present: no acute distress, other (alert cooperative) - EENT Eyes: PERRL, EOM intact ENT: hearing intact, clear oral mucosa Ears: bilateral: other (pimma w/o breakdown) - Neck Neck: supple, other (tracheostomy tube in place, no drainage) - Respiratory Respiratory effort: normal - Breasts Breasts: deferred - Cardiovascular Rhythm: regular Heart Sounds: Present: S1 & S2 Extremities: no ischemia, pulses intact - Gastrointestinal General gastrointestinal: Present: soft, non-tender, normal bowel sounds, other (peg in place) Rectal Exam: deferred - Genitourinary Female genitourinary: deferred - Integumentary Integumentary: clear, warm, dry - Musculoskeletal Musculoskeletal: other (decreased tone) - Neurologic Neurologic: CNII-XII intact - Psychiatric Psychiatric: appropriate mood/affect - Labs CBC & Chem 7: 01/28/18 15:20 01/26/18 13:31 Labs: Abnormal lab results 01/27/18 01/28/18 01/28/18 Range/Units 20:42 00:47 05:39 RBC (3.65-5.03) M/mm3 Hgb (10.1-14.3) gm/dl Hct (30.3-42.9) % RDW (13.2-15.2) % Plt Count (140-440) K/mm3 [place] % (Auto) (0.0-7.3) % POC Glucose 176 H 164 H 229 H (70-105) 01/28/18 01/28/18 01/28/18 Range/Units 07:43 14:28 15:20 RBC 2.63 L (3.65-5.03) M/mm3 Hgb 8.1 L (10.1-14.3) gm/dl Hct 24.5 L (30.3-42.9) % RDW 18.4 H (13.2-15.2) % Plt Count 459 H (140-440) K/mm3 [place] % (Auto) 8.5 H (0.0-7.3) % POC Glucose 141 H 193 H (70-105) 01/28/18 Range/Units 18:27 RBC (3.65-5.03) M/mm3 Hgb (10.1-14.3) gm/dl Hct (30.3-42.9) % RDW (13.2-15.2) % Plt Count (140-440) K/mm3 [place] % (Auto) (0.0-7.3) % POC Glucose 218 H (70-105)
[2018-01-28] MEDS: LOVENOX SUB-Q SCH (22:30)
[2018-01-29] MEDS: HumaLOG SUB-Q SCH ×4 (06:24→15:46)
--- NOTE | 2018-01-29 08:11 | Progress Note ---
Assessment and Plan Assessment: 1) Sepsis improved.. Etiology most likely UTI. 2) Acute UTI: urine cx growing GNRs. UA showed yeast likely contaminant 3) Chronic respiratory failure with chronic tracheostomy in place 4) CVA with hemiplegia 5) Diabetes - uncontrolled 6) Hypertension 7) Growth lesion at the tracheotomy site ? Plan: - patient being discharged 01/29 - ceftin 500 mg po q12h total 10 days until 02-06-18 will sign off [facility] [employer] M: [phone] O:[phone]. Subjective Date of service: 01/29/18 Principal diagnosis: Sepsis Interval history: Patient laying in bed. Hard to communicate because of Tracheotomy. Micro: Blood cultures: 01/26 ngtd 01/28 - Urine cultures: 01/26 GNRs 01/29 Current Antimicrobials ceftin - 01/28 Previous Antimicrobials Cefepime Objective - Exam Narrative Exam: Alert in NAD NC/AT, RAFAEL, limited OP Neck +Trach with valve no secretions Lungs naila scattered rhonchi CV RRR Abd soft NT ND +PEG Ext naila naila leg edema, no tenderness Neuro: aphasic, alert, +hemiplegia - Constitutional Vitals: Vital Signs Temp Pulse Resp BP Pulse Ox 98.1 F 117 H 24 131/66 100 01/29/18 05:32 01/29/18 05:32 01/29/18 05:32 01/29/18 05:32 01/29/18 07:59 Temperature -Last 24 Hours Temperature 98.1 F Temperature 98.6 F Temperature 98.8 F - Labs CBC & Chem 7: 01/28/18 15:20 01/26/18 13:31 Labs: Abnormal lab results 01/28/18 01/28/18 01/28/18 Range/Units 07:43 14:28 15:20 RBC 2.63 L (3.65-5.03) M/mm3 Hgb 8.1 L (10.1-14.3) gm/dl Hct 24.5 L (30.3-42.9) % RDW 18.4 H (13.2-15.2) % Plt Count 459 H (140-440) K/mm3 [place] % (Auto) 8.5 H (0.0-7.3) % POC Glucose 141 H 193 H (70-105) 01/28/18 01/28/18 01/29/18 Range/Units 18:27 21:25 05:41 RBC (3.65-5.03) M/mm3 Hgb (10.1-14.3) gm/dl Hct (30.3-42.9) % RDW (13.2-15.2) % Plt Count (140-440) K/mm3 [place] % (Auto) (0.0-7.3) % POC Glucose 218 H 172 H 327 H (70-105) 01/29/18 Range/Units 06:10 RBC (3.65-5.03) M/mm3 Hgb (10.1-14.3) gm/dl Hct (30.3-42.9) % RDW (13.2-15.2) % Plt Count (140-440) K/mm3 [place] % (Auto) (0.0-7.3) % POC Glucose 319 H (70-105)
[2018-01-29] MEDS: NORCO 5/325 PO PRN (10:22)
[2018-01-29] MEDS: CEFTIN PO SCH (10:23)
--- NOTE | 2018-01-29 10:23 | Discharge Summary ---
Providers - Providers Date of Admission: 01/26/18 14:01 Date of discharge: 01/29/18 Attending physician: ABEBE RILEY 01/26/18 13:55 Consult to Physician [CONS] Urgent Comment: Consulting Provider: ABEBE RILEY Physician Instructions: Reason For Exam: sepsis 01/26/18 16:47 Consult to Wound/ET Nurse [CONS] Urgent Reason For Exam: wound eval/ had wound vac 01/26/18 17:54 Consult to Dietitian/Nutrition [CONS] Routine Physician Instructions: Reason For Exam: Reason for Consult: Write/Manage Tube Feeding 01/26/18 19:01 Consult to Physician [CONS] Routine Comment: Consulting Provider: VICENTE CHAMBERLAIN Physician Instructions: Reason For Exam: elevated troponin 01/27/18 08:56 Consult to Physician [CONS] Routine Comment: Consulting Provider: DAVID NEVILLE Physician Instructions: Reason For Exam: yeast in the urine/UTI/sepsis. 01/27/18 18:50 Consult to Physician [CONS] Routine Comment: Consulting Provider: NESTOR RIVERS Physician Instructions: Reason For Exam: tracheostmy growth. Primary care physician: EXTRUDER Hospitalization Reason for admission: sepsis due to UTI Condition: Fair Hospital course: 57 yoAA female, transfered from [facility], to the ER for reasons of decline clinically. W/up revealed sepsis due to UTI. patient also had sacral wound from the [place]. She was treated with IV ABX by the ID consult. She was also seen by the head bellhop captain for elevated Troponin. She got wound care and wound vac. clinically she did well, and family were kept in the loop of the events. She was started on tube feeding. She was also seen by Dr Tong the ENT, ,who did not see any problems with her traech or neck for any speach procedure. She grew klebsiella, and susceptible to ceftin, and was rec to d/c back to the [place] on this abx [id number].patient will need a wound vac once she gets to the [place]. This has been communicated to the [place] by the case worker, and by my self. Patient will continue TF at the current rate, and will continue all her previous meds.The folley will be changed as per the [place] protocol, and when needed. Disposition: DC/TX-70 ANOTHER TYPE HLTHCARE - Discharge Diagnoses (1) Sepsis Status: Resolved Qualifiers: Sepsis type: Streptococcus, unspecified Qualified Code(s): A40.9 - Streptococcal sepsis, unspecified; A40 - Streptococcal sepsis (2) Cough Status: Chronic (3) Acute respiratory failure Status: Chronic Qualifiers: Respiratory failure complication: hypoxia Qualified Code(s): J96.01 - Acute respiratory failure with hypoxia (4) Anemia Status: Chronic Qualifiers: Iron deficiency anemia type: unspecified iron deficiency (5) Pneumonia Status: Resolved Core Measure Documentation - Palliative Care Palliative Care/ Comfort Measures: Not Applicable (none) - Core Measures Any of the following diagnoses?: none Exam - Constitutional Vitals: Temp Pulse Resp BP Pulse Ox 98.1 F 117 H 24 131/66 100 01/29/18 05:01/29/18 05:32 01/29/18 05:01/29/18 05:01/29/18 07:59 General appearance: Present: no acute distress - EENT Eyes: Present: EOM intact ENT: hearing intact, other (traecheostomy.) - Neck Neck: Present: supple - Respiratory Respiratory: bilateral: rhonchi - Cardiovascular Heart Sounds: Present: S1 & S2 - Extremities Extremities: No edema Peripheral Pulses: within normal limits - Abdominal General gastrointestinal: Present: non-tender, normal bowel sounds Female genitourinary: Present: deferred - Rectal Rectal Exam: deferred - Integumentary Integumentary: Present: clear - Musculoskeletal Musculoskeletal: strength equal bilaterally - Psychiatric Psychiatric: cooperative - Neurologic Neurologic: CNII-XII intact Plan Activity: fall precautions Weight Bearing Status: Full Weight Bearing Diet: per dietitian instruction Wound: change dressing, drain care as instructed, other (patient will need wound vac sraah.) Special Instructions: physical therapy Durable Medical Equipment Needed Upon Discharge: Oxygen Follow up with: PRIMARY CARE, [Primary Care Provider] - 3-5 Days Prescriptions: cefUROXime [Ceftin] 500 mg PO Q12HR 14 Days #14 tablet MDD onethousand mg.
--- NOTE | 2018-01-29 13:22 | Progress Note ---
Assessment and Plan - Patient Problems (1) Tracheostomy status Current Visit: Yes Status: Acute Plan to address problem: local trache care, will need to f/u with pt. old hx to establish why she can not be capped (2) Acute respiratory failure Current Visit: Yes Status: Chronic Qualifiers: Respiratory failure complication: hypoxia Qualified Code(s): J96.01 - Acute respiratory failure with hypoxia Plan to address problem: titrate O2 to keep sat >= 92% (3) Anemia Current Visit: Yes Status: Chronic Qualifiers: Iron deficiency anemia type: unspecified iron deficiency Plan to address problem: transfuse prn per primary service (4) Cough Current Visit: Yes Status: Chronic Plan to address problem: antitussive, consider tessalon 100 mg q 8hrs prn cough per primary service (5) Pneumonia Current Visit: Yes Status: Resolved (6) Sepsis Current Visit: Yes Status: Resolved Qualifiers: Sepsis type: Streptococcus, unspecified Qualified Code(s): A40.9 - Streptococcal sepsis, unspecified; A40 - Streptococcal sepsis Plan to address problem: antibx per ID (7) Acute right-sided weakness Current Visit: No Status: Acute Plan to address problem: per neuro & primary service (8) Leukocytosis Current Visit: Yes Status: Acute Plan to address problem: resolve Subjective Date of service: 01/29/18 Principal diagnosis: Sepsis Interval history: Pt. resting comfortably alert in good spirits Objective - Constitutional Vitals: Vital Signs - 12hr 01/29/18 01/29/18 01/29/18 05:32 07:59 10:22 Temperature 98.1 F Pulse Rate 117 H Pulse Rate [ Left Radial] Respiratory 24 12 Rate Blood Pressure 131/66 O2 Sat by Pulse 100 100 Oximetry 01/29/18 01/29/18 11:22 12:00 Temperature Pulse Rate Pulse Rate [ 115 H Left Radial] Respiratory 12 12 Rate Blood Pressure O2 Sat by Pulse Oximetry General appearance: Present: no acute distress - EENT Eyes: PERRL, EOM intact ENT: hearing intact, clear oral mucosa Ears: bilateral: normal - Neck Neck: supple, other (stoma clean & dry) - Respiratory Respiratory effort: normal, other (on trache collar) - Breasts Breasts: deferred - Cardiovascular Rhythm: regular Heart Sounds: Present: S1 & S2 Extremities: no ischemia, pulses intact - Gastrointestinal General gastrointestinal: Present: soft, non-tender Rectal Exam: deferred - Genitourinary Female genitourinary: deferred - Integumentary Integumentary: clear, warm, dry - Musculoskeletal Musculoskeletal: other (decreased tone) - Neurologic Neurologic: CNII-XII intact - Psychiatric Psychiatric: appropriate mood/affect - Labs CBC & Chem 7: 01/28/18 15:20 01/26/18 13:31 Labs: Abnormal lab results 01/28/18 01/28/18 01/28/18 Range/Units 07:43 14:28 15:20 RBC 2.63 L (3.65-5.03) M/mm3 Hgb 8.1 L (10.1-14.3) gm/dl Hct 24.5 L (30.3-42.9) % RDW 18.4 H (13.2-15.2) % Plt Count 459 H (140-440) K/mm3 [place] % (Auto) 8.5 H (0.0-7.3) % POC Glucose 141 H 193 H (70-105) 01/28/18 01/28/18 01/29/18 Range/Units 18:27 21:25 05:41 RBC (3.65-5.03) M/mm3 Hgb (10.1-14.3) gm/dl Hct (30.3-42.9) % RDW (13.2-15.2) % Plt Count (140-440) K/mm3 [place] % (Auto) (0.0-7.3) % POC Glucose 218 H 172 H 327 H (70-105) 01/29/18 01/29/18 Range/Units 06:10 10:46 RBC (3.65-5.03) M/mm3 Hgb (10.1-14.3) gm/dl Hct (30.3-42.9) % RDW (13.2-15.2) % Plt Count (140-440) K/mm3 [place] % (Auto) (0.0-7.3) % POC Glucose 319 H 349 H (70-105)
[2018-01-29 16:12] VITALS: BP 143/65
== END 2018-01-29 17:48 | DRG 871 ==
LOC: ED 12:37 → 3A 14:01
PROVIDERS: ADMIT Internal Medicine Hematology & Oncology; ATTEND Internal Medicine Hematology & Oncology
DX: A40.9 Streptococcal sepsis, unspecified (principal); J18.9 Pneumonia, unspecified organism; J96.20 Acute and chronic respiratory failure, unspecified whether with hypoxia or hypercapnia; N39.0 Urinary tract infection, site not specified; I69.351 Hemiplegia and hemiparesis following cerebral infarction affecting right dominant side; E05.90 Thyrotoxicosis, unspecified without thyrotoxic crisis or storm; E11.65 Type 2 diabetes mellitus with hyperglycemia; L89.159 Pressure ulcer of sacral region, unspecified stage; I11.0 Hypertensive heart disease with heart failure; I50.9 Heart failure, unspecified; Z88.0 Allergy status to penicillin; Z88.1 Allergy status to other antibiotic agents; Z91.048 Other nonmedicinal substance allergy status; Z79.82 Long term (current) use of aspirin; Z79.899 Other long term (current) drug therapy; Z79.84 Long term (current) use of oral hypoglycemic drugs; Z93.0 Tracheostomy status; Z90.710 Acquired absence of both cervix and uterus
CPT/HCPCS: 36415; 71045; 80053; 80061; 81001; 82140; 82550; 82962; 84439; 84443; 84484; 85025; 85730; 87040; 87076; 87086; 87116; 87186; 93005; 93010; 94760; J0692; J1650; J1815; J1956; J3370; J7030; J7040; J7050

== ENCOUNTER 2018-03-01 19:31 | Emergency (ER) | payer MEDICARE, OTHER ==
[~2018-03-01 19:31] MED LIST changes: +ADRENALIN ONE; +CORDARONE IV ONE; -KEPPRA 1,000 MG/NS 0.75% 100ML 1,000 MG/100 ML BAG IV ONE; +SODIUM BICARBONATE IV ONE
--- NOTE | 2018-03-01 19:51 | Emergency Department Report ---
ED CPR HPI - General Chief Complaint: Cardiac Arrest/CPR Stated Complaint: CARDIAC ARREST Time Seen by Provider: 03/01/18 19:49 Source: EMS - History of Present Illness Initial Comments: Patient is 57 years old female with history of chronic respiratory failure on tracheostomy tube. Patient presented to the ER in cardiac arrest, CPR in progress. Patient brought [place] [facility] [place] facility. EMS stated that initial rhythm was asystole and patient remained in asystole. Upon arrival to the ER patient is being ventilated through tracheostomy tube was no difficulty good breath sounds on both sides. Monitor show asystole. ACLS protocol continued in the ER. Patient had 2 episode of ventricular fibrillation for which she received 300 J and also 300 mg of amiodarone. Then changed to PEA and then to asystole again. Patient pronounced at 1948, family was in the room attending the resuscitation. For further information please refer to code sheet. MD Complaint: found unresponsive Place: [facility]/S[facility] Bystander CPR Performed: Yes AED Applied by Bystander/Social Media Designer: Yes Shock Advised: No Initial Findings in the Field: unresponsive, no respirations, no pulse, systole ROSC in the Field: No Associated Injuries: No Treatments Prior to Arrival: intubation - Related Data Home Medications Medication Instructions Recorded Confirmed Last Taken Benztropine [Cogentin] 1 mg FEEDTUBE BID 09/25/16 02/06/18 11/19/16 Gabapentin [Neurontin] 300 mg FEEDTUBE BID 11/20/16 02/06/18 11/19/16 Acetaminophen [Acetaminophen TAB] 650 mg PO Q4H PRN 01/26/18 02/06/18 Unknown Aspirin [Aspirin TAB] 325 mg FEEDTUBE QDAY 01/26/18 02/06/18 Unknown AtorvaSTATin [Lipitor] 40 mg FEEDTUBE QHS 01/26/18 02/06/18 Unknown Atropine Sulfate 2 - 3 drops SUBLINGUAL Q4-6H PRN 01/26/18 02/06/18 Unknown Furosemide [Lasix TAB] 20 mg FEEDTUBE QDAY 01/26/18 02/06/18 Unknown Glycopyrrolate [Robinul] 1 mg FEEDTUBE Q8H 01/26/18 02/06/18 Unknown Haloperidol [Haldol] 2 mg FEEDTUBE BID 01/26/18 02/06/18 Unknown Heparin Sodium,Porcine [Heparin 5,000 units SUB-Q Q8H 01/26/18 02/06/18 Unknown Sodium] Insulin Glargine,Hum.rec.anlog 22 units SUB-Q HS 01/26/18 02/06/18 Unknown [Lantus] Insulin Lispro [HumaLOG VIAL] 0 units SQ Q6H 01/26/18 02/06/18 Unknown amLODIPine [Norvasc] 10 mg FEEDTUBE DAILY 01/26/18 02/06/18 Unknown levETIRAcetam [Keppra ORAL LIQ] 5 ml FEEDTUBE Q12H 01/26/18 02/06/18 Unknown Lispro Insulin [Humalog] 0 unit SUB-Q Q6HR 02/06/18 02/06/18 Unknown Previous Rx's Medication Instructions Recorded Last Taken Type cefUROXime [Ceftin] 500 mg PO Q12HR 14 Days #14 tablet 01/29/18 Unknown Rx MDD onethousand mg. ALBUTEROL NEB's [Proventil 0.083% 2.5 mg IH Q4HRT PRN nebu 02/18/18 Unknown Rx NEBS] Acetaminophen [Acetaminophen 650 mg [place] Q6H PRN supp.rect 02/18/18 Unknown Rx SUPPOS] Aspirin [Aspirin BABY CHEW TAB] 81 mg PO QDAY tab.chew 02/18/18 Unknown Rx AtorvaSTATin [Lipitor] 20 mg PO QHS tablet 02/18/18 Unknown Rx Insulin Glargine [Lantus VIAL] 20 units SUB-Q DAILY units 02/18/18 Unknown Rx Lansoprazole Solutab [Prevacid 30 mg FEEDTUBE BID tab.rapdis 02/18/18 Unknown Rx Solutab] Lipase/Protease/Amylase [Pancreaze 1 each FEEDTUBE PRN PRN capsule 02/18/[address],500 Unit] Lispro Insulin [Humalog] 0 unit SUB-Q Q6HR units 02/18/18 Unknown Rx Min Oil/Petrolatum [Artificial 1 applic OU Q4HR PRN tube 02/18/18 Unknown Rx Tears Ophth Oint] Phenytoin (25 mg/ml) [Dilantin] 200 mg FEEDTUBE Q12H oral.liqd 02/18/18 Unknown Rx Scopolamine [Transderm-Scop] 1 each TD Q3D patch 02/18/18 Unknown Rx Simple Syrup 15 ml FEEDTUBE PRN PRN oral.liqd 02/18/18 Unknown Rx Simple Syrup 30 ml FEEDTUBE PRN PRN oral.liqd 02/18/18 Unknown Rx Sodium Bicarbonate 325 mg FEEDTUBE PRN PRN tablet 02/18/18 Unknown Rx Allergies Allergy/AdvReac Type Severity Reaction Status Date / Time latex Allergy Rash Verified 06/17/14 10:38 Penicillins Allergy Rash Verified 06/17/14 10:38 Sulfa (Sulfonamide Allergy Rash Verified 06/17/14 10:38 Antibiotics) TAPE Allergy Hives Uncoded 11/20/16 13:09 ED Review of Systems ROS: Stated complaint: CARDIAC ARREST Other details as noted in HPI Comment: Unobtainable due to pts medical conditions ED Past Medical Hx - Past Medical History Hx Hypertension: Yes Hx CVA: Yes (x3) Hx Heart Attack/AMI: No Hx Congestive Heart Failure: No Hx Diabetes: Yes Hx Deep Vein Thrombosis: No Hx Pulmonary Embolism: No Hx GERD: Yes Hx Liver Disease: No Hx Renal Disease: Yes (patient denies but creatinine 1.3) Hx Sickle Cell Disease: No Hx Arthritis: Yes Hx Seizures: No Hx Kidney Stones: No Hx Asthma: No Hx COPD: No Hx Dementia: No Hx HIV: No - Surgical History Hx Coronary Stent: No Hx Open Heart Surgery: No Hx Pacemaker: No Hx Internal Defibrillator: No Hx Cholecystectomy: Yes Hx Appendectomy: No Hx Breast Surgery: No Additional Surgical History: spinal surgery, carpal tunnel surgery, ankle fx repair, hysterectomy - Social History Smoking Status: Former Smoker - Medications Home Medications: Home Medications Medication Instructions Recorded Confirmed Last Taken Type Benztropine [Cogentin] 1 mg FEEDTUBE BID 09/25/16 02/06/18 11/19/16 History Gabapentin [Neurontin] 300 mg FEEDTUBE BID 11/20/16 02/06/18 11/19/16 History Acetaminophen [Acetaminophen TAB] 650 mg PO Q4H PRN 01/26/18 02/06/18 Unknown History Aspirin [Aspirin TAB] 325 mg FEEDTUBE QDAY 01/26/18 02/06/18 Unknown History AtorvaSTATin [Lipitor] 40 mg FEEDTUBE QHS 01/26/18 02/06/18 Unknown History Atropine Sulfate 2 - 3 drops SUBLINGUAL Q4-6H PRN 01/26/18 02/06/18 Unknown History Furosemide [Lasix TAB] 20 mg FEEDTUBE QDAY 01/26/18 02/06/18 Unknown History Glycopyrrolate [Robinul] 1 mg FEEDTUBE Q8H 01/26/18 02/06/18 Unknown History Haloperidol [Haldol] 2 mg FEEDTUBE BID 01/26/18 02/06/18 Unknown History Heparin Sodium,Porcine [Heparin 5,000 units SUB-Q Q8H 01/26/18 02/06/18 Unknown History Sodium] Insulin Glargine,Hum.rec.anlog 22 units SUB-Q HS 01/26/18 02/06/18 Unknown History [Lantus] Insulin Lispro [HumaLOG VIAL] 0 units SQ Q6H 01/26/18 02/06/18 Unknown History amLODIPine [Norvasc] 10 mg FEEDTUBE DAILY 01/26/18 02/06/18 Unknown History levETIRAcetam [Keppra ORAL LIQ] 5 ml FEEDTUBE Q12H 01/26/18 02/06/18 Unknown History cefUROXime [Ceftin] 500 mg PO Q12HR 14 Days #14 tablet 01/29/18 02/06/18 Unknown Rx MDD onethousand mg. Lispro Insulin [Humalog] 0 unit SUB-Q Q6HR 02/06/18 02/06/18 Unknown History ALBUTEROL NEB's [Proventil 0.083% 2.5 mg IH Q4HRT PRN nebu 02/18/18 Unknown Rx NEBS] Acetaminophen [Acetaminophen 650 mg [place] Q6H PRN supp.rect 02/18/18 Unknown Rx SUPPOS] Aspirin [Aspirin BABY CHEW TAB] 81 mg PO QDAY tab.chew 02/18/18 Unknown Rx AtorvaSTATin [Lipitor] 20 mg PO QHS tablet 02/18/18 Unknown Rx Insulin Glargine [Lantus VIAL] 20 units SUB-Q DAILY units 02/18/18 Unknown Rx Lansoprazole Solutab [Prevacid 30 mg FEEDTUBE BID tab.rapdis 02/18/18 Unknown Rx Solutab] Lipase/Protease/Amylase [Pancreaze 1 each FEEDTUBE PRN PRN capsule 02/18/[address],500 Unit] Lispro Insulin [Humalog] 0 unit SUB-Q Q6HR units 02/18/18 Unknown Rx Min Oil/Petrolatum [Artificial 1 applic OU Q4HR PRN tube 02/18/18 Unknown Rx Tears Ophth Oint] Phenytoin (25 mg/ml) [Dilantin] 200 mg FEEDTUBE Q12H oral.liqd 02/18/18 Unknown Rx Scopolamine [Transderm-Scop] 1 each TD Q3D patch 02/18/18 Unknown Rx Simple Syrup 15 ml FEEDTUBE PRN PRN oral.liqd 02/18/18 Unknown Rx Simple Syrup 30 ml FEEDTUBE PRN PRN oral.liqd 02/18/18 Unknown Rx Sodium Bicarbonate 325 mg FEEDTUBE PRN PRN tablet 02/18/18 Unknown Rx ED Physical Exam - General General appearance: other (unresponsive) ED Medical Decision Making - Medical Decision Making Patient is 57 years old female with history of chronic respiratory failure on tracheostomy tube. Patient presented to the ER in cardiac arrest, CPR in progress. Patient brought from a [place] [facility] facility. EMS stated that initial rhythm was asystole and patient remained in asystole. Upon arrival to the ER patient is being ventilated through tracheostomy tube was no difficulty good breath sounds on both sides. Monitor show asystole. ACLS protocol continued in the ER. Patient had 2 episode of ventricular fibrillation for which she received 300 J and also 300 mg of amiodarone. Then changed to PEA and then to asystole again. Patient pronounced at 1948, family was in the room attending the resuscitation. For further information please refer to code sheet. Critical Care Time: Yes Critical care time in (mins) excluding proc time.: 30 Critical care attestation.: If time is entered above; I have spent that time in minutes in the direct care of this critically ill patient, excluding procedure time. ED Disposition Clinical Impression: Cardiopulmonary arrest Disposition: DC-20 Is pt being admited?: No Condition: Stable Referrals: PRIMARY CARE,MD [Primary Care Provider] - 3-5 Days
[2018-03-02] MEDS ORDERED: ADRENALIN ONE (11:15)
== END 2018-03-01 20:00 ==
LOC: ED 19:31
DX: I46.9 Cardiac arrest, cause unspecified (principal); I10 Essential (primary) hypertension; Z86.73 Personal history of transient ischemic attack (TIA), and cerebral infarction without residual deficits; E11.9 Type 2 diabetes mellitus without complications; K21.9 Gastro-esophageal reflux disease without esophagitis; M19.90 Unspecified osteoarthritis, unspecified site; Z90.49 Acquired absence of other specified parts of digestive tract; Z90.710 Acquired absence of both cervix and uterus; Z87.891 Personal history of nicotine dependence; Z79.82 Long term (current) use of aspirin; Z79.4 Long term (current) use of insulin; Z91.040 Latex allergy status; Z88.0 Allergy status to penicillin; Z88.2 Allergy status to sulfonamides; Z91.048 Other nonmedicinal substance allergy status
CPT/HCPCS: 36415; 82962; 92950; 99291; J0171; J0282